=== PATIENT | female | born 1960 | race Caucasian/White ===

== ENCOUNTER 2019-02-04 16:09 | Inpatient (IN) | payer MEDICARE, MEDICAID, SELFPAY | END 2019-02-07 17:44 | DRG 689 | PROVIDERS: Admitting Provider Internal Medicine; Emergency Provider Emergency Medicine; PCP Internal Medicine; Visit Provider Internal Medicine | DX: N39.0 Urinary tract infection, site not specified (principal); G93.41 Metabolic encephalopathy; N18.4 Chronic kidney disease, stage 4 (severe); J96.12 Chronic respiratory failure with hypercapnia; Z68.41 Body mass index [BMI] 40.0-44.9, adult; B96.20 Unspecified Escherichia coli [E. coli] as the cause of diseases classified elsewhere; I12.9 Hypertensive chronic kidney disease with stage 1 through stage 4 chronic kidney disease, or unspecified chronic kidney disease; E11.22 Type 2 diabetes mellitus with diabetic chronic kidney disease; E11.51 Type 2 diabetes mellitus with diabetic peripheral angiopathy without gangrene; I73.9 Peripheral vascular disease, unspecified; M06.9 Rheumatoid arthritis, unspecified; E66.01 Morbid (severe) obesity due to excess calories; I65.09 Occlusion and stenosis of unspecified vertebral artery; G47.33 Obstructive sleep apnea (adult) (pediatric); K21.9 Gastro-esophageal reflux disease without esophagitis; F41.8 Other specified anxiety disorders; G35 Multiple sclerosis; J44.9 Chronic obstructive pulmonary disease, unspecified; I48.2 Chronic atrial fibrillation; E03.9 Hypothyroidism, unspecified; M81.0 Age-related osteoporosis without current pathological fracture; Z85.42 Personal history of malignant neoplasm of other parts of uterus; Z86.718 Personal history of other venous thrombosis and embolism; Z79.01 Long term (current) use of anticoagulants; Z87.891 Personal history of nicotine dependence; Z79.4 Long term (current) use of insulin; Z79.52 Long term (current) use of systemic steroids | CPT/HCPCS: 36415; 36600; 70450; 70551; 71045; 74150; 76700; 80048; 80053; 80061; 80069; 80307; 81001; 82805; 82962; 83036; 83735; 85025; 87077; 87081; 87086; 87088; 87186; 93005; 93306; 93880; 96361; 96365; 96366; 96375; 96376; 99285; A9270; G0378; J0744; J1815; J2405; J7030; J7512 ==

== ENCOUNTER 2019-11-01 09:34 | Outpatient (CLI) | payer MEDICARE, MEDICAID, SELFPAY ==
[2019-11-01 10:08] LABS: Basophils Absolute Auto 0.1 K/mm3 (0.0-0.1); Basophils Percent Auto 0.7 % (0.2-1.2); Eosinophils Absolute Auto 0.3 K/mm3 (0-0.3); Eosinophils Percent Auto 5.1 % (0-4.4); Hemoglobin 8.5 g/dL (12.0-15.0); Immature Granulocyte Absolute 0.03 K/mm3 (0.00-0.031); Immature Granulocyte Percent A 0.4 % (0-0.5); Immature Reticulocyte Fraction 21.2 % (3.0-15.9); Lymphocytes Absolute Auto 1.39 K/mm3 (0.9-3.2); Lymphocytes Percent Auto 20.7 % (18.3-44.2); Mean Corpuscular HGB Conc 28.3 g/dl (32-36); Mean Corpuscular Hemoglobin 25.8 pg (26-34); Mean Corpuscular Volume 90.9 fl (80-100); Mean Platelet Volume 9.5 fl (7.4-10.4); Monocytes Percent Auto 14.6 % (2.6-8.5); Neutrophils Absolute Auto 3.9 K/mm3 (1.3-6.7); Neutrophils Percent Auto 58.5 % (45.5-73.1); Platelet Count Result 235 k/mm3 (150-375); Red Cell Distribution Width 17.4 % (11.5-14.5); Reticulocyte Hemoglobin Conten 27.5 pg (28.2-35.7); Reticulocyte Percent 2.75 % (0.7-4.3); Reticulocytes Absolute 0.09 B/L (32.2-175.7); White Blood Count 6.7 K/mm3 (4.5-10.0)
[2019-11-01 10:21] LABS: Platelet Estimate Adequate (Adequate)
[2019-11-01 10:22] LABS: Anisocytosis 2+ (NORMAL); Hypochromasia 1+ (NORMAL)
[2019-11-01 12:09] LABS: Iron 34 ug/dL (37-170)
[2019-11-01 12:17] LABS: Alanine Aminotransferase 8 U/L (4-35); Albumin Level 3.5 g/dL (3.5-5.1); Alkaline Phosphatase 55 U/L (38-126); Aspartate Amino Transferase 19 U/L (14-36); Bilirubin,Total 0.2 mg/dL (0.2-1.3); Blood Urea Nitrogen 63 mg/dL (7-17); Calcium 9.4 mg/dL (8.4-10.2); Carbon Dioxide 38 mmol/L (22-30); Chloride 93 mmol/L (98-107); Estimated Glomerular Filt Rate 38; Glucose 84 mg/dL (65-105); Lactate Dehydrogenase 501 U/L (313-618); Potassium 4.6 mmol/L (3.4-5.0); Sodium 137 mmol/L (137-145)
[2019-11-01 12:18] LABS: Percent Iron Saturation 11 % (20-50)
[2019-11-01 13:11] LABS: Vitamin B12 > 1000.0 pg/mL (239-931)
== END 2019-11-01 09:35 | disposition home or self-care (01) ==
LOC: ANHLAB 09:38
PROVIDERS: PCP Internal Medicine; Visit Provider Internal Medicine Hematology & Oncology
DX: D64.9 Anemia, unspecified (principal)
CPT/HCPCS: 36415; 80053; 82607; 82728; 83540; 83550; 83615; 85025; 85046

== ENCOUNTER 2019-12-27 09:51 | Outpatient (CLI) | payer MEDICARE, MEDICAID, SELFPAY ==
[2019-12-27 10:08] LABS: Hematocrit 38.1 % (37.0-47.0); Hemoglobin 10.8 g/dL (12.0-15.0); Mean Corpuscular HGB Conc 28.3 g/dl (32-36); Mean Corpuscular Hemoglobin 27.2 pg (26-34); Mean Platelet Volume 9.6 fl (7.4-10.4); Platelet Count Result 194 k/mm3 (150-375); Red Blood Count 3.97 M/mm3 (4.2-5.4); Red Cell Distribution Width 19.7 % (11.5-14.5); White Blood Count 8.9 K/mm3 (4.5-10.0)
[2019-12-27 10:12] LABS: Blood Urea Nitrogen 66 mg/dL (8-26); Carbon Dioxide 32 mmol/L (22-30); Chloride 97 mmol/L (98-109); Estimated Glomerular Filt Rate 25; Glucose 133 mg/dL (70-105); Sodium 139 mmol/L (138-146)
[2019-12-27 12:16] LABS: Iron 81 ug/dL (37-170)
[2019-12-27 12:26] LABS: Percent Iron Saturation 42 % (20-50)
== END 2019-12-27 09:52 | disposition home or self-care (01) ==
LOC: ANHLAB 09:55
PROVIDERS: Visit Provider Internal Medicine Hematology & Oncology
DX: D64.9 Anemia, unspecified (principal)
CPT/HCPCS: 36415; 80048; 82728; 83540; 83550; 85027

== ENCOUNTER 2020-02-19 16:28 | Inpatient (IN) | payer MEDICARE, MEDICAID, SELFPAY ==
--- NOTE | ~2020-02-19 | US_ITS ---
EXAMINATION: US venous doppler [facility] EXAM DATE: 02/20/2020 09:05 INDICATION: Left leg edema. TECHNIQUE: Multiple grayscale, color flow and Doppler images of the left lower extremity deep venous system obtained and reviewed. There is no prior study for comparison. FINDINGS: LEFT SIDE Common femoral: -------- Normal. Profunda femoral: ------- Normal. Femoral: Normal. Popliteal: Normal. Posterior tibial: ---------Not visualized. Peroneal: Not visualized. Gastrocnemius: Not visualized. Soleus: Not visualized. Greater saphenous: ----- Normal. Lesser saphenous: ------ Not visualized. IMPRESSION: No thrombus through the left popliteal vein. Calf veins poorly visualized due to body hab itus, edema Reviewed, dictated and finalized at location B. IMPRESSION: No thrombus through the left popliteal vein. Calf veins poorly visu alized due to body habitus, edema
--- NOTE | ~2020-02-19 | XR_ITS ---
EXAMINATION: XR abdomen/kub 1V INDICATION: Vomiting, nasogastric tube insertion TECHNIQUE: Supine views of the abdomen were obtained on three radiographs. COMPARISON: 12/18/2017 FINDINGS: Nasogastric tube is in the stomach. The abdomen is relatively gasless. No definitely dilate d loops of bowel are seen. Visualized surgical clips likely reflect pelvic and retroperitoneal lymph node dissection. There is moderate bilateral hip osteoarthritis. Punctate left upper quadrant calcifi cations are consistent with healed granulomatous disease of the spleen. IMPRESSION: 1. Nasogastric tube in the stomach. 2. Nonspecific bowel gas pattern. Reviewed, dictated and finalized at location A.
--- NOTE | ~2020-02-19 | XR_ITS ---
EXAMINATION: XR chest 1V portable INDICATION: Fever, urinary tract infection TECHNIQUE: Portable AP chest at 1702 hours COMPARISON: 02/04/2019 FINDINGS: There are patchy bilateral airspace opacities. No pleural effusion or pneumothorax is ident ified. The cardiomediastinal silhouette is normal. Multiple healed right-sided rib fractures are note d. IMPRESSION: 1. Patchy bilateral airspace opacities, consistent with atelectasis versus pneumonia. Reviewed, dictated and finalized at location A. IMPRESSION: 1. Patchy bilateral airspace opacities, consistent with atelectasis versus pneu monia.
--- NOTE | ~2020-02-19 | XR_ITS ---
EXAMINATION: XR chest 1V portable DATE: 02/25/2020 05:57 INDICATION: Pulmonary infiltrates TECHNIQUE: frontal view of the chest was obtained. COMPARISON: Chest radiograph dated 02/19/2020 FINDINGS: Evaluation mildly limited by portable technique and patient body habitus. Patchy opacities in the rig ht mid and lower lung zones. No pneumothorax or pleural effusion. Cardiomegaly with pulmonary vascula r congestion but without summer pulmonary edema. Ossified nodules in the right mid and lower lung sybil g with calcified right hilar lymph nodes consistent with old granulomatous disease. Multiple old bila teral rib fractures. IMPRESSION: 1. . Megaly with pulmonary vascular congestion. 2. Opacities in the right mid to lower lung zones which could represent atelectasis or pneumonia. Reviewed, dictated and finalized at location A. IMPRESSION: 1. . Megaly with pulmonary vascular congestion. 2. Opacities in the right mid to lower lung zones which could represent atelect asis or pneumonia.
[2020-02-19 16:24] VITALS: RESP 22; O2SAT 99
[2020-02-19 16:25] VITALS: BP 122/42; PULSE 71; RESP 24; TEMP 36.8; O2SAT 95
--- NOTE | 2020-02-19 16:30 | ED.FEVER ---
HPI - Fever General Chief Complaint: Fever Stated Complaint: fever Source: patient and EMS Mode of arrival: EMS Limitations: clinical condition History of Present Illness HPI Narrative: Patient is a 60-year-old female with a history of multiple sclerosis, rheumatoid arthritis, recurrent urinary tract infection, hypertension, stage IV chronic kidney disease, chronic respiratory failure and type 2 diabetes who presents for evaluation of fever. Patient had a urinalysis that was consistent with a possible urinary tract infection, but the patient had not been started on any antibiotics at the facility because they are waiting for the culture to result. Patient has had fever over the past 24 hours and decreased oral intake. Patient has been slightly more confused from baseline. Related Data Home Medications Medication Instructions Recorded Confirmed MagOx 400 mg PO HS 11/18/19 11/18/19 acidophilus-pectin, citrus 2 cap PO DAILY 11/18/19 11/18/19 [Acidophilus Probiotic] ascorbic acid (vitamin C) 500 mg PO DAILY 11/18/19 11/18/19 baclofen 5 mg PO DAILY 11/18/19 11/18/19 bisacodyl 5 mg PO HS 11/18/19 11/18/19 bumetanide 2 mg PO DAILY 11/18/19 11/18/19 cyanocobalamin (vitamin B-12) 1,000 mcg PO DAILY 11/18/19 11/18/19 fluticasone furoate-vilanterol 1 inh INHALATION DAILY 11/18/19 11/18/19 [Breo Ellipta] guaifenesin 200 mg PO Q4H 11/18/19 11/18/19 hydralazine 50 mg PO TID 11/18/19 11/18/19 hydroxychloroquine 200 mg PO DAILY 11/18/19 11/18/19 ipratropium-albuterol 3 ml INHALATION QID 11/18/19 11/18/19 levothyroxine 150 mcg PO DAILY 11/18/19 11/18/19 Allergies Allergy/AdvReac Type Severity Reaction Status Date / Time vancomycin Allergy Intermediate Rash Verified 02/19/20 16:33 erythromycin base Allergy Mild Unknown Verified 02/19/20 16:33 piperacillin Allergy Mild Headache Verified 02/19/20 16:33 Sulfa (Sulfonamide Allergy Mild Unknown Verified 02/19/20 16:33 Antibiotics) tazobactam Allergy Mild Headache Verified 02/19/20 16:33 adhesive tape Allergy Unknown unknown Verified 02/19/20 16:33 amlodipine Allergy Unknown unknown Verified 02/19/20 16:33 cefpodoxime Allergy Unknown unknown Verified 02/19/20 16:33 Iodinated Contrast Media Allergy Unknown unknown Verified 02/19/20 16:33 iodine Allergy Unknown unknown Verified 02/19/20 16:33 latex Allergy Unknown unknown Verified 02/19/20 16:33 levofloxacin Allergy Unknown unknown Verified 02/19/20 16:33 metformin Allergy Unknown unknown Verified 02/19/20 16:33 Akjkbcy-Yfh-Ypu Reductase Allergy Unknown unknown Verified 02/19/20 16:33 Inhibitor Review of Systems Review of Systems: Narrative: CONSTITUTIONAL: Denies fever, chills, or sweats. EYES: Denies visual changes, redness, or discharge. ENT: Denies rhinorrhea, congestion, sore throat, or otalgia. CARDIOVASCULAR: Denies chest pain, palpitations, or edema. RESPIRATORY: Denies cough or dyspnea. GASTROINTESTINAL: Denies abdominal pain, nausea, vomiting, or diarrhea. GENITOURINARY: Denies dysuria or hematuria. SKIN: Denies rash or itching. MUSCULOSKELETAL: Denies back pain, joint pain, or myalgia. NEUROLOGIC: Denies headache, numbness, or weakness. PSYCHIATRIC: Denies anxiety or depression. [facility] Past Medical History Medical History (Updated 02/19/20 @ 19:08 by Nicky Reyna MD) Anemia Chronic anticoagulation Chronic respiratory failure DVT (deep venous thrombosis) Hypertension Kidney disease, chronic, stage IV (GFR 15-29 ml/min) Multiple sclerosis Recurrent urinary tract infection Rheumatoid arthritis Type 2 diabetes mellitus Social History Social History Smoking status: Never smoker Gender identity (if verbalized by the patient): Female Spiritual care concerns: No Exam Narrative: Exam Narrative: GENERAL: Awake, alert, chronically ill-appearing, morbidly obese HEAD: Normocephalic, atraumatic. EYES: PERRLA and EOMI. ENT: Nares clear, no rhinorrhea or epi
--- NOTE | 2020-02-19 16:34 | ECG_ITS ---
Measurements Intervals [place] Rate: 68 P: 14 DC: 169 QRS: 1 QRSD: 122 T: 26 QT: 396 QTc: 423 Interpretive Statements SINUS RHYTHM INTRAVENTRICULAR CONDUCTION DELAY POOR R WAVE PROGRESSION, ANTERIOR LEADS BORDERLINE T WAVE ABNORMALITY- HIGH LATERAL LEADS BASELINE WANDER- I, II, AVR, AVL, AVF, V1-V3, V6 ABNORMAL ECG Electronically Signed On 02-19-2020 17:16:43 CDT by Willian Eid D.O.
[2020-02-19 17:06] LABS: Hematocrit 28.5 % (37.0-47.0); Hemoglobin 8.6 g/dL (12.0-15.0); Mean Corpuscular HGB Conc 30.2 g/dl (32-36); Mean Corpuscular Hemoglobin 30.3 pg (26-34); Mean Corpuscular Volume 100.4 fl (80-100); Platelet Count Result 136 k/mm3 (150-375); Red Blood Count 2.84 M/mm3 (4.2-5.4); Red Cell Distribution Width 15.9 % (11.5-14.5); White Blood Count 14.3 K/mm3 (4.5-10.0)
[2020-02-19 17:16] LABS: INR 1.7; Prothrombin Time 19.7 Seconds (11.1-14.7)
[2020-02-19 17:19] LABS: Lactic Acid Reflex 0.9 mmol/L (0.7-2.1)
[2020-02-19 17:20] LABS: Band Neutrophils Percent 19 % (0-6); Lymphocytes Absolute Manual 0.14 K/mm3 (1.1-4.5); Monocytes Absolute Manual 0.14 K/mm3 (0.1-0.90); Monocytes Percent Manual 1 % (3-9); Neutrophils Absolute Manual 14.01 K/mm3 (1.7-7.2); Neutrophils Percent Manual 79 % (46-73); Total Cells Counted 100
[2020-02-19 17:22] LABS: Anisocytosis 2+ (NORMAL); Hypochromasia 1+ (NORMAL)
[2020-02-19 17:24] LABS: Add Urine Microscopic? YES; Appearance Urine Turbid (Clear); Bacteria Urine 2+ /hpf; Bilirubin Urine Negative (Negative); Blood Urine Negative (Negative); Color Urine Red (Yellow); Glucose Urine UA Negative (Negative); Ketones Urine Negative (Negative); Leukocyte Esterase Ur 3+ LEU/UL (Negative); Mucus Urine Few /lpf; Nitrate Urine Negative (Negative); Protein Urine 2+ mg/dL (Negative); Squamous Epithelial Cell Urine Occasional /hpf (Few); WBC Urine >75 /hpf
[2020-02-19 17:30] LABS: Alanine Aminotransferase 11 U/L (4-35); Alkaline Phosphatase 141 U/L (38-126); Aspartate Amino Transferase 24 U/L (14-36); Bilirubin,Total 0.6 mg/dL (0.2-1.3); Blood Urea Nitrogen 95 mg/dL (7-17); CRP > 9.0 mg/dL (<1.0); Calcium 8.2 mg/dL (8.4-10.2); Carbon Dioxide 31 mmol/L (22-30); Chloride 90 mmol/L (98-107); Estimated CRCL calculation 23 ml/min; Estimated Glomerular Filt Rate 18; Glucose 113 mg/dL (65-105); Potassium 4.5 mmol/L (3.4-5.0); Sodium 128 mmol/L (137-145)
[2020-02-19 17:37] LABS: Alveolar/Arterial O2 Gradient 60.3 mmHg; Carboxyhemoglobin 2.5 % THb (0-2.0); Device NASAL CANNULA; Fractional Inspired Oxygen 32 %; HCO3 ABG 30.1 mEq/l (22.0-26.0); Methemoglobin ABG 0.3 %THb (0-1.5); Modified Allen's Test Pass; Oxygen Content ABG 12.7 %vol (16.0-22.0); Oxygen Saturation ABG 98.2 % (95.0-100.0); Oxyhemoglobin 94.7 % THb (90.0-100.0); PCO2 ABG 47.2 mmHg (35.0-45.0); PO2 ABG 112.6 mmHg (80.0-100.0); PO2 FiO2 Ratio Arterial Blood 3.52 %; Reduced Hemoglobin 2.5 %THb (0-5.0); Site Drawn RIGHT RADIAL; Total Hemoglobin 9.4 g/dL (12.0-18.0); pH ABG 7.422 (7.350-7.450)
[2020-02-19] MEDS: SODIUM CHLORIDE 0.9% IV 1,000 ML 999 ML IV CONT (18:10)
[2020-02-19 18:33] LABS: Lactate Dehydrogenase 465 U/L (313-618)
[2020-02-19 18:51] LABS: Troponin I 0.905 ng/mL (0.000-0.034)
[2020-02-19 19:24] LABS: CRP > 45.0 mg/dL (<1.0)
[2020-02-19 20:23] VITALS: BP 147/57; PULSE 87; RESP 32; TEMP 38.4; O2SAT 100
--- NOTE | 2020-02-19 20:52 | PM.IMHP ---
H&P: HPI History of Present Illness Chief complaint: Fever, abnormal UA at longterm Narrative: Date and time of patient contact: 02/19/2020 at 11:00 p.m. Romina Perez is a 60 year old female with a past medical history of chronic kidney disease stage 4, obstructive sleep apnea, diabetes mellitus, obstructive sleep apnea, chronic venous stasis dermatitis the left lower extremity, and rheumatoid arthritis who presented to the ER from longterm for fever of 103?. Patient does have a history of recurrent UTIs in the past and had a urine culture sent from the longterm a couple of days ago. She had not been started on antibiotics yet because the longterm was awaiting culture results. The culture results returned today positive for greater than 100,000 E coli sensitive to ertapenem, cefepime, gentamicin, imipenem, ceftazidime, and tobramycin. According to the ER notes patient has been more confused than baseline and has had decreased oral intake for the last 24 hours. The patient denies any increased shortness of breath from baseline. She has not been having any cough or congestion. She is alert and oriented times 2-3. She is lethargic and is falling asleep frequently. She denies any abdominal pain. She has been having urinary incontinence. I tried to ask the patient about dysuria but she never answered my question. She reports that she has been having some nausea and vomiting. Source of information: I have cared for the patient before and some of the information below i.e. allergy information for is from my prior conversations with her. Patient has multiple drug allergies listed. The patient has an allergy a Levaquin listed with unknown reaction. The patient has tolerated Cipro in the past. Her allergy to Zosyn is headaches. Her allergy to sulfa is unknown but she is not a candidate for sulfa treatment due to her renal failure. Her allergy to vancomycin is rash which I suspect is red man syndrome. The patient was unable to tell me what her allergy to cefpodoxime and erythromycin base was. Review of Systems Review of Systems: Narrative: 12 systems were reviewed with pertinent positives and negatives per HPI. Except as documented in the HPI, all other systems were reviewed and are negative. However somewhat limited due to the patient's somnolence. [facility] Past Medical History Medical History (Updated 02/20/20 @ 00:25 by Ashwini Grey DO) Anemia Chronic anticoagulation Due to left lower extremity DVT Chronic respiratory failure with hypoxia Diabetes mellitus with insulin therapy Diastolic CHF Last echocardiogram January 2019 demonstrating mild left ventricular hypertrophy, grade 1 diastolic dysfunction, EF of 65% DVT (deep venous thrombosis) Left lower extremity DVT 2016 following complicated bowel surgery with V/Q scan suggestive of intermediate probability of pulmonary embolism March 2018 on chronic anticoagulation with Eliquis after failure of Xarelto treatment in 2017 GERD (gastroesophageal reflux disease) Gout Hypertension Multiple sclerosis Obstructive sleep apnea on CPAP Osteoporosis Recurrent urinary tract infection Rheumatoid arthritis Stage 3 chronic kidney disease With baseline creatinine between 1.5 in 2 Uterine cancer Status post hysterectomy and radiation therapy Surgical History Surgical History (Updated 02/19/20 @ 21:08 by Ashwini Grey DO) History of bowel resection ?Twisted bowel? with surgical correction April [address] [facility] postoperative course complicated by wound infection and DVT History of hysterectomy for cancer Family History Family History (Updated 02/19/20 @ 20:39 by Roxana Paredes RN) Father Diabetes mellitus Cancer Hypertension Mother Diabetes mellitus Hypertension Social History Social History (Updated 02/20/20 @ 00:25 by Ashwini Grey DO) Social History: Primary care physician: Dr. Pam marte
[2020-02-19 21:15] VITALS: O2SAT 87
[2020-02-19 21:22] LABS: Alveolar/Arterial O2 Gradient 92.2 mmHg; Base Excess ABG -0.2 mEq/l (+/-2.0); Carboxyhemoglobin 1.6 % THb (0-2.0); Fractional Inspired Oxygen 28 %; HCO3 ABG 25.6 mEq/l (22.0-26.0); Methemoglobin ABG 0.1 %THb (0-1.5); Oxyhemoglobin 84.1 % THb (90.0-100.0); PCO2 ABG 47.5 mmHg (35.0-45.0); PO2 ABG 51.4 mmHg (80.0-100.0); PO2 FiO2 Ratio Arterial Blood 1.84 %; Reduced Hemoglobin 14.2 %THb (0-5.0); Total Hemoglobin 10.1 g/dL (12.0-18.0)
[2020-02-19 21:25] LABS: Device NASAL CANNULA; Modified Allen's Test Pass; Oxygen Saturation ABG 84.4 % (95.0-100.0); Site Drawn LEFT RADIAL
[2020-02-19 22:00] VITALS: PULSE 86
[2020-02-19 22:38] LABS: Troponin I 0.843 ng/mL (0.000-0.034)
[2020-02-19 22:54] VITALS: BMI 50.8
--- NOTE | 2020-02-19 23:12 | ADMIMU ---
This patient, Romina Perez, was admitted to IMU status, and placed in Intensive Care Unit-1 on 02/19/2020 at 2015. Patient/family oriented to hospital policies and general routines including ID bracelet, bed and alarms, visiting hours, pain management, procedures, bathroom and other care routines, personal items, smoking policy, room service/diet, and visiting hours. Valuables list has been completed. Information on how to activate the Rapid Response Team has been discussed. Patient/Family are encouraged to report perceived risks to care and to ask questions if they do not understand what they are told or what they should do.
[2020-02-20] VITALS (19 sets, daily range): BP systolic 107–152; BP diastolic 54–94; PULSE 73–124; RESP 16–27; TEMP 36.2–38.3; O2SAT 91–100
[2020-02-20] MEDS: SODIUM CHLORIDE 0.9% IV 1,000 ML 80 ML IV CONT ×2 (01:43→19:45)
[2020-02-20] MEDS: ACETAMINOPHEN 325 MG TABLET 650 MG PO (01:50)
[2020-02-20 03:02] LABS: Troponin I 0.802 ng/mL (0.000-0.034)
[2020-02-20] MEDS: METOCLOPRAMIDE HCL 10 MG TABLET PO ×2 (05:34→10:56)
[2020-02-20] MEDS: LEVOTHYROXINE SODIUM 75 MCG TABLET 150 MCG PO (05:34)
[2020-02-20 06:03] LABS: Hematocrit 26.7 % (37.0-47.0); Hemoglobin 8.2 g/dL (12.0-15.0); Mean Corpuscular HGB Conc 30.7 g/dl (32-36); Mean Corpuscular Hemoglobin 30.3 pg (26-34); Mean Corpuscular Volume 98.5 fl (80-100); Mean Platelet Volume 10.9 fl (7.4-10.4); Platelet Count Result 118 k/mm3 (150-375); Red Blood Count 2.71 M/mm3 (4.2-5.4); Red Cell Distribution Width 15.9 % (11.5-14.5); White Blood Count 18.5 K/mm3 (4.5-10.0)
[2020-02-20 06:13] LABS: Blood Urea Nitrogen 90 mg/dL (7-17); Calcium 8.2 mg/dL (8.4-10.2); Carbon Dioxide 31 mmol/L (22-30); Chloride 91 mmol/L (98-107); Estimated CRCL calculation 24 ml/min; Estimated Glomerular Filt Rate 15; Glucose 116 mg/dL (65-105); Potassium 4.2 mmol/L (3.4-5.0); Sodium 130 mmol/L (137-145)
[2020-02-20 06:54] LABS: Band Neutrophils Percent 6 % (0-6); Eosinophils Absolute Manual 0.18 K/mm3 (0.02-0.5); Eosinophils Percent Manual 1 % (0-4); Hypochromasia 1+ (NORMAL); Monocytes Absolute Manual 0.74 K/mm3 (0.1-0.90); Monocytes Percent Manual 4 % (3-9); Neutrophils Absolute Manual 17.57 K/mm3 (1.7-7.2); Neutrophils Percent Manual 89 % (46-73); Platelet Estimate Decreased (Adequate); Total Cells Counted 100
[2020-02-20] MEDS: SULFASALAZINE 500 MG TABLET 1000 MG PO (08:15)
[2020-02-20] MEDS: GABAPENTIN 300 MG CAPSULE PO (08:17)
[2020-02-20] MEDS: APIXABAN 5 MG TABLET PO (08:18)
[2020-02-20] MEDS: hydrALAZINE HCL 50 MG TABLET PO (08:22)
--- NOTE | 2020-02-20 08:55 | PM.IMPN ---
Progress Note: A&P Assessment and Plan (1) Sepsis: Qualifiers: Sepsis acute organ dysfunction status: unspecified Sepsis type: sepsis due to unspecified organism Qualified Code(s): A41.9 - Sepsis, unspecified organism Code(s): A41.9 - Sepsis, unspecified organism Status: Acute Assessment and Plan: Patient with septicemia related to E coli UTI. She may a cellulitis in the left lower extremity versus chronic venous stasis. Pneumonia felt to be less likely given her lack of symptoms. Blood culture artery has returned positive for Gram-negative bacilli suspected to be MDR E coli. Continue IV fluids. Continue Primaxin and azithromycin. Will stop Rocephin. Patient states that she is 'allergic'to Rocephin and that it causes migraines. Called by RN about patient having n/v. Interaction with Zofran and Phenergan with her other medications. Reglan continued but changed to IV. NG tube placed ultimately and placed on suction. KUB for placement showed nml BG pattern. Continue to monitor (2) Acute UTI: Code(s): N39.0 - Urinary tract infection, site not specified Status: Acute Assessment and Plan: UA noted. Urine culture from the long term showing MDR E coli UTI. Patient started on Primaxin. Continue the same. Follow up on blood cultures here. (3) Acute on chronic renal failure: Qualifiers: Acute renal failure type: unspecified Chronic kidney disease stage: stage 3 (moderate) Qualified Code(s): N17.9 - Acute kidney failure, unspecified; N18.3 - Chronic kidney disease, stage 3 (moderate) Code(s): N17.9 - Acute kidney failure, unspecified; N18.9 - Chronic kidney disease, unspecified Status: Acute Assessment and Plan: Baseline creatinine anywhere from 1.4-2.0 when checked earlier this year. Creatinine 2.7 on admission here and has climbed to 3.1. Most likely ATN related to the septicemia. Paz catheter placed accurate I/O's. Bumex placed on hold. Continue IV fluids. Continue to monitor. (4) Cellulitis: Qualifiers: Laterality: left Site of cellulitis: extremity Site of cellulitis of extremity: lower extremity Qualified Code(s): L03.116 - Cellulitis of left lower limb Code(s): L03.90 - Cellulitis, unspecified Status: Acute Assessment and Plan: Possible left lower extremity cellulitis but consider related to her chronic venous stasis dermatitis. She has mild erythema to the leg will monitor clinically. Doppler has been ordered and results pending. DVT less likely given the fact she is on Eliquis chronically. Continue current IV antibiotics. (5) Bilateral pulmonary infiltrates on CXR: Code(s): R91.8 - Other nonspecific abnormal finding of lung field Status: Acute Assessment and Plan: Chest x-ray on admission reviewed personally. Patient with patchy bilateral airspace disease. She was recently tested for COVID-19 3 days ago. Repeat testing has been performed. Continue isolation until COVID test results known. She is being covered for pneumonia with the current antibiotics. (6) Obstructive sleep apnea: Code(s): G47.33 - Obstructive sleep apnea (adult) (pediatric) Status: Acute Assessment and Plan: The patient does use CPAP at the long term. CPAP has not been ordered at this time as the patient is currently being tested for COVID-19 and is not in a negative pressure room. (7) Rheumatoid arthritis: Code(s): M06.9 - Rheumatoid arthritis, unspecified Status: Acute Assessment and Plan: Patient Immunocompromised by her treatment for RA. She is on prednisone, hydroxychloroquine and sulfasalazine chronically. Will continue these medications. Start PT and OT when able. BP stable so will hold on stress dose steroids at this time. (8) Diabetes mellitus: Code(s): E11.9 - Type 2 diabetes mellitus without complications Status:
[2020-02-20 12:34] LABS: Glucose Point of Care 128 (65-105)
--- NOTE | 2020-02-20 13:07 | ECG_ITS ---
Measurements Intervals [place] Rate: 82 P: 16 UT: 167 QRS: -2 QRSD: 112 T: 61 QT: 362 QTc: 423 Interpretive Statements SINUS RHYTHM INTRAVENTRICULAR CONDUCTION DELAY POOR R WAVE PROGRESSION, ANTERIOR LEADS BASELINE ARTIFACT- I, III BORDERLINE ECG Electronically Signed On 02-20-2020 15:11:04 CDT by Willian Eid D.O.
[2020-02-20] MEDS: METOCLOPRAMIDE HCL INJ 10 MG/2 ML VIAL 5 MG IV PUSH (16:57)
[2020-02-20 18:38] LABS: Glucose Point of Care 108 (65-105)
[2020-02-20 18:54] LABS: SARS-CoV-2 RNA PCR Negative
[2020-02-20] MEDS: EZETIMIBE 10 MG TABLET PO (21:50)
[2020-02-20 21:54] LABS: Glucose Point of Care 110 (65-105)
[2020-02-20] MEDS: dilTIAZem HCl INJ 25 MG/5 ML VIAL 10 MG IV PUSH (23:19)
[2020-02-20] MEDS: METOCLOPRAMIDE HCL INJ 10 MG/2 ML VIAL IV PUSH (23:29)
[2020-02-21] VITALS (16 sets, daily range): BP systolic 135–188; BP diastolic 79–110; PULSE 93–108; RESP 17–24; TEMP 36–36.6; O2SAT 97–99
[2020-02-21] MEDS: LEVOTHYROXINE SODIUM 75 MCG TABLET 150 MCG PO (05:50)
[2020-02-21] MEDS: METOCLOPRAMIDE HCL INJ 10 MG/2 ML VIAL IV PUSH ×4 (05:52→23:13)
[2020-02-21 08:44] LABS: Glucose Point of Care 106 (65-105)
[2020-02-21] MEDS: SODIUM CHLORIDE 0.9% IV 1,000 ML 80 ML IV CONT ×2 (08:54→22:11)
[2020-02-21] MEDS: ACIDOPHILUS/BULGARICUS CHEWABLE TABLET 2 TABLET PO (08:56)
[2020-02-21] MEDS: ASCORBIC ACID 500 MG TABLET PO (08:56)
[2020-02-21] MEDS: CYANOCOBALAMIN 500 MCG TABLET PO (08:56)
[2020-02-21] MEDS: DULoxetine HCL 30 MG CAPSULE.DR PO ×2 (08:56→17:20)
[2020-02-21] MEDS: APIXABAN 5 MG TABLET PO ×2 (08:56→17:20)
[2020-02-21] MEDS: LORATADINE 10 MG TABLET PO (08:57)
[2020-02-21] MEDS: GABAPENTIN 300 MG CAPSULE PO ×2 (08:57→17:20)
[2020-02-21] MEDS: hydrALAZINE HCL 50 MG TABLET PO ×3 (08:57→17:22)
[2020-02-21] MEDS: POLYSACCHARIDE IRON COMPLEX 150 MG CAPSULE PO (08:57)
[2020-02-21] MEDS: FLUTICASONE PROPIONATE 0.05% NA SPR 16 GM BTL (*BKC) 1 SPRAY NASAL (08:57)
[2020-02-21] MEDS: MAGNESIUM OXIDE 400 MG TABLET PO (08:58)
[2020-02-21] MEDS: predniSONE 5 MG TABLET PO (08:58)
[2020-02-21] MEDS: calcitrioL 0.25 MCG CAPSULE PO (08:58)
[2020-02-21] MEDS: PANTOPRAZOLE 40 MG TABLET PO (08:58)
[2020-02-21] MEDS: SULFASALAZINE 500 MG TABLET 1000 MG PO ×2 (08:58→17:22)
[2020-02-21 09:12] LABS: Basophils Percent Auto 0.3 % (0.2-1.2); Eosinophils Absolute Auto 0.4 K/mm3 (0-0.3); Eosinophils Percent Auto 2.8 % (0-4.4); Hematocrit 30.7 % (37.0-47.0); Hemoglobin 9.5 g/dL (12.0-15.0); Immature Granulocyte Absolute 0.16 K/mm3 (0.00-0.031); Immature Granulocyte Percent A 1.2 % (0-0.5); Lymphocytes Absolute Auto 0.37 K/mm3 (0.9-3.2); Lymphocytes Percent Auto 2.7 % (18.3-44.2); Mean Corpuscular HGB Conc 30.9 g/dl (32-36); Mean Corpuscular Hemoglobin 30.2 pg (26-34); Mean Corpuscular Volume 97.5 fl (80-100); Mean Platelet Volume 10.3 fl (7.4-10.4); Monocytes Absolute Auto 1.5 K/mm3 (0.1-0.6); Monocytes Percent Auto 11.2 % (2.6-8.5); Neutrophils Absolute Auto 11.3 K/mm3 (1.3-6.7); Neutrophils Percent Auto 81.8 % (45.5-73.1); Platelet Count Result 73 k/mm3 (150-375); Red Blood Count 3.15 M/mm3 (4.2-5.4); Red Cell Distribution Width 17.7 % (11.5-14.5); White Blood Count 13.8 K/mm3 (4.5-10.0)
[2020-02-21 09:19] LABS: Hemoglobin A1C 5.4 % (<5.7)
[2020-02-21 09:30] LABS: Alanine Aminotransferase 10 U/L (4-35); Albumin Level 2.9 g/dL (3.5-5.1); Alkaline Phosphatase 160 U/L (38-126); Aspartate Amino Transferase 31 U/L (14-36); Bilirubin,Total 0.7 mg/dL (0.2-1.3); Blood Urea Nitrogen 90 mg/dL (7-17); Calcium 8.5 mg/dL (8.4-10.2); Carbon Dioxide 27 mmol/L (22-30); Chloride 92 mmol/L (98-107); Estimated CRCL calculation 42 ml/min; Estimated Glomerular Filt Rate 29; Glucose 101 mg/dL (65-105); Magnesium 1.7 mg/dL (1.6-2.3); Potassium 4.1 mmol/L (3.4-5.0); Sodium 130 mmol/L (137-145)
--- NOTE | 2020-02-21 10:43 | PC.NURSE ---
02/21/20 0900-PATIENT TRANSFERRED TO 232 PER BED. REPORT GIVEN TO LAUREN CALVIN. ALL QUESTIONS ANSWERED. BELONGINGS SENT.
[2020-02-21] MEDS: BACLOFEN 5 MG TABLET PO (11:00)
[2020-02-21 12:53] LABS: Glucose Point of Care 122 (65-105)
--- NOTE | 2020-02-21 17:01 | PM.IMPN ---
Progress Note: A&P Assessment and Plan (1) Sepsis: Qualifiers: Sepsis acute organ dysfunction status: unspecified Sepsis type: sepsis due to unspecified organism Qualified Code(s): A41.9 - Sepsis, unspecified organism Code(s): A41.9 - Sepsis, unspecified organism Status: Acute Assessment and Plan: Patient with septicemia related to E coli UTI. She may a cellulitis in the left lower extremity versus chronic venous stasis. . Blood culture artery has returned positive for Gram-negative bacilli , E coli. Continue IV fluids. Continue Primaxin and azithromycin. (2) Acute UTI: Code(s): N39.0 - Urinary tract infection, site not specified Status: Acute Assessment and Plan: UA noted. Urine culture from the retirement showing MDR E coli UTI. Patient started on Primaxin. Continue the same. Follow up on blood cultures here for sensitivities (3) Acute on chronic renal failure: Qualifiers: Acute renal failure type: unspecified Chronic kidney disease stage: stage 3 (moderate) Qualified Code(s): N17.9 - Acute kidney failure, unspecified; N18.3 - Chronic kidney disease, stage 3 (moderate) Code(s): N17.9 - Acute kidney failure, unspecified; N18.9 - Chronic kidney disease, unspecified Status: Acute Assessment and Plan: Baseline creatinine anywhere from 1.4-2.0 when checked earlier this year. Creatinine 2.7 on admission here and has climbed to 3.1 and back to 1.8 today.. Most likely ATN related to the septicemia. Paz catheter placed accurate I/O's. Bumex placed on hold. Continue IV fluids. Continue to monitor. (4) Cellulitis: Qualifiers: Laterality: left Site of cellulitis: extremity Site of cellulitis of extremity: lower extremity Qualified Code(s): L03.116 - Cellulitis of left lower limb Code(s): L03.90 - Cellulitis, unspecified Status: Acute Assessment and Plan: Possible left lower extremity cellulitis but consider related to her chronic venous stasis dermatitis. She has mild erythema to the leg will monitor clinically. Doppler has been ordered and is negative but hx of dvt and on Eliquis chronically. Continue current IV antibiotics. (5) Bilateral pulmonary infiltrates on CXR: Code(s): R91.8 - Other nonspecific abnormal finding of lung field Status: Acute Assessment and Plan: Chest x-ray on admission reviewed personally. Patient with patchy bilateral airspace disease. She was recently tested for COVID-19 3 days ago. Repeat testing has been performed. Continue isolation until COVID test results known. She is being covered for pneumonia with the current antibiotics. does have hx of diastolic chf (6) Obstructive sleep apnea: Code(s): G47.33 - Obstructive sleep apnea (adult) (pediatric) Status: Acute Assessment and Plan: The patient does use CPAP at the retirement. CPAP has not been ordered at this time as the patient is currently being tested for COVID-19 and is not in a negative pressure room. (7) Rheumatoid arthritis: Code(s): M06.9 - Rheumatoid arthritis, unspecified Status: Acute Assessment and Plan: Patient Immunocompromised by her treatment for RA. She is on prednisone, hydroxychloroquine and sulfasalazine chronically. Will continue these medications. Start PT and OT when able, patient states she rarely walks. BP stable so will hold on stress dose steroids at this time. (8) Diabetes mellitus: Code(s): E11.9 - Type 2 diabetes mellitus without complications Status: Acute Assessment and Plan: A1c 5.5 last year. Glucose well controlled here. Start sliding scale protocol. (9) Anemia: Code(s): D64.9 - Anemia, unspecified Status: Acute Assessment and Plan: Patient with chronic anemia with hemoglobin earlier this year running 8-10 range. Hemoglobin 8.6 on admission here. Workup i
[2020-02-21 17:06] LABS: Glucose Point of Care 108 (65-105)
[2020-02-21 20:46] LABS: Glucose Point of Care 93 (65-105)
[2020-02-22] VITALS (19 sets, daily range): BP systolic 143–160; BP diastolic 75–104; PULSE 74–130; RESP 12–22; TEMP 35.8–36.7; O2SAT 96–100
--- NOTE | 2020-02-22 | ECHO_ITS ---
Patient Info Name: Romina Perez Age: 60 years : 1960 Gender: Female Ht: 64 in Wt: 312 lbs BSA: 2.62 m2 HR: 92 bpm BP: 143 / 81 mmHg Technical Quality: Fair Exam Date: 02/22/2020 11:27 AM Exam Location: [facility] Patient Status: Inpatient Admit Date: 02/19/2020 Staff Ordering Physician: Maninder Palmer MD [place] Mark[place]: Lizy Ponce RDCS Attending Provider: Sarkis Davila MD Referring Physician: Spencer BERUMEN; Exam Type: CA echo doppler color flow Study Info Indications - afib Complete two-dimensional, color flow and Doppler transthoracic echocardiogram is performed. Summary 1. Normal LV size, mild LVH, normal LV systolic function, ejection fraction 55-60%, grade 1 diastolic dysfunction with elevated left heart pressures. Moderate left atrial enlargement. Dense mitral annular calcification, trivial MR. Mild aortic valve sclerosis without significant stenosis by Doppler. Trivial TR, mild pulmonary hypertension, RVSP 39 mmHg. Left Ventricle Left ventricular chamber dimension is normal. Left ventricular systolic function is normal, estimated at 55-60%. There is mildly increased left ventricular wall thickness. Left ventricular septal wall motion is normal. The left ventricular diastolic function is abnormal. Right Ventricle Right ventricular chamber dimension is normal. Right ventricular systolic function is normal. Left Atria Left atrial chamber dimension is moderately enlarged. Right Atria Right atrial chamber dimension is normal. Aortic Valve There is mild aortic valve sclerosis. There is no aortic valve stenosis. There is no aortic valve regurgitation. Pulmonic Valve The pulmonic valve is normal. There is trace pulmonic regurgitation. Mitral Valve The mitral valve has thickened leaflets. There is trace mitral valve regurgitation. The mitral valve annulus is severely calcified. Tricuspid Valve The tricuspid valve leaflets are normal. There is trace tricuspid valve regurgitation. Mild pulmonary hypertension, estimated pulmonary arterial systolic pressure is 39 mmHg. Pericardium/Pleural The pericardium appears epicardial fat pad. There is no pericardial effusion. Aorta The aortic root size at the sinus of Valsalva is normal. The prox ascending aorta size is normal. Left Ventricular Outflow Tract Name Value Normal LVOT 2D LVOT Diameter 2.0 cm LVOT Doppler LVOT Peak Gradient 6 mmHg LVOT Mean Gradient 4 mmHg LVOT VTI 19 cm LVOT VTI/AV VTI Ratio 0.9 LVOT Stroke Volume 60 ml LVOT CO 16.9 l/min LVOT CI 6.4 l/min/m2 Pulmonic Valve Name Value Normal PV Doppler PV Peak Gradient
[2020-02-22 05:38] LABS: Basophils Absolute Auto 0.1 K/mm3 (0.0-0.1); Basophils Percent Auto 0.5 % (0.2-1.2); Eosinophils Absolute Auto 0.3 K/mm3 (0-0.3); Eosinophils Percent Auto 2.2 % (0-4.4); Hemoglobin 9.5 g/dL (12.0-15.0); Immature Granulocyte Percent A 2.3 % (0-0.5); Lymphocytes Absolute Auto 0.29 K/mm3 (0.9-3.2); Lymphocytes Percent Auto 2.2 % (18.3-44.2); Mean Corpuscular HGB Conc 31.7 g/dl (32-36); Mean Corpuscular Hemoglobin 29.7 pg (26-34); Mean Corpuscular Volume 93.8 fl (80-100); Mean Platelet Volume 11.1 fl (7.4-10.4); Monocytes Absolute Auto 1.3 K/mm3 (0.1-0.6); Monocytes Percent Auto 9.8 % (2.6-8.5); Neutrophils Absolute Auto 11.1 K/mm3 (1.3-6.7); Platelet Count Result 91 k/mm3 (150-375); Red Cell Distribution Width 15.3 % (11.5-14.5); White Blood Count 13.3 K/mm3 (4.5-10.0)
[2020-02-22] MEDS: LEVOTHYROXINE SODIUM 75 MCG TABLET 150 MCG PO (05:44)
[2020-02-22 05:46] LABS: Blood Urea Nitrogen 73 mg/dL (7-17); Calcium 8.6 mg/dL (8.4-10.2); Carbon Dioxide 29 mmol/L (22-30); Chloride 94 mmol/L (98-107); Estimated CRCL calculation 53 ml/min; Estimated Glomerular Filt Rate 38; Glucose 94 mg/dL (65-105); Sodium 133 mmol/L (137-145)
[2020-02-22] MEDS: METOCLOPRAMIDE HCL INJ 10 MG/2 ML VIAL IV PUSH ×4 (05:54→23:30)
[2020-02-22 07:58] LABS: Glucose Point of Care 111 (65-105)
[2020-02-22] MEDS: calcitrioL 0.25 MCG CAPSULE PO (09:00)
[2020-02-22] MEDS: POTASSIUM CHLORIDE 20 MEQ TABLET 40 MEQ PO ×2 (09:00→17:55)
[2020-02-22] MEDS: DULoxetine HCL 30 MG CAPSULE.DR PO ×2 (09:02→17:44)
[2020-02-22] MEDS: dilTIAZem HCL CD 180 MG CAP.ER.24H 360 MG PO (09:02)
[2020-02-22] MEDS: FLUTICASONE PROPIONATE 0.05% NA SPR 16 GM BTL (*BKC) 1 SPRAY NASAL (09:03)
[2020-02-22] MEDS: GABAPENTIN 300 MG CAPSULE PO ×2 (09:03→17:42)
[2020-02-22] MEDS: POLYSACCHARIDE IRON COMPLEX 150 MG CAPSULE PO (09:03)
[2020-02-22] MEDS: predniSONE 5 MG TABLET PO (09:04)
[2020-02-22] MEDS: PANTOPRAZOLE 40 MG TABLET PO (09:04)
[2020-02-22] MEDS: LORATADINE 10 MG TABLET PO (09:04)
[2020-02-22] MEDS: SULFASALAZINE 500 MG TABLET 1000 MG PO ×2 (09:04→17:43)
[2020-02-22] MEDS: MAGNESIUM OXIDE 400 MG TABLET PO (09:04)
[2020-02-22] MEDS: hydrALAZINE HCL 50 MG TABLET PO ×3 (09:04→17:42)
[2020-02-22] MEDS: ASCORBIC ACID 500 MG TABLET PO (09:05)
[2020-02-22] MEDS: ACIDOPHILUS/BULGARICUS CHEWABLE TABLET 2 TABLET PO (09:05)
[2020-02-22] MEDS: APIXABAN 5 MG TABLET PO ×2 (09:05→17:43)
[2020-02-22] MEDS: CYANOCOBALAMIN 500 MCG TABLET PO (09:05)
--- NOTE | 2020-02-22 10:05 | PCRCNOTE ---
PT HEART RATE ELEVATED AND UNAVAILABLE
[2020-02-22] MEDS: METOPROLOL TARTRATE INJ 5 MG/5 ML VIAL IV PUSH (10:10)
[2020-02-22] MEDS: SODIUM CHLORIDE 0.9% IV 1,000 ML 80 ML IV CONT (11:57)
[2020-02-22] MEDS: METOPROLOL TARTRATE 25 MG TABLET PO ×2 (11:58→22:27)
[2020-02-22] MEDS: LOPERAMIDE HCL 2 MG CAPSULE PO (11:58)
[2020-02-22 12:15] LABS: Glucose Point of Care 114 (65-105)
[2020-02-22 13:36] LABS: Procalcitonin 28.98 ng/mL (<0.10)
[2020-02-22 16:47] LABS: Glucose Point of Care 122 (65-105)
--- NOTE | 2020-02-22 16:54 | PM.IMPN ---
Progress Note: A&P Assessment and Plan (1) Sepsis: Qualifiers: Sepsis acute organ dysfunction status: unspecified Sepsis type: sepsis due to unspecified organism Qualified Code(s): A41.9 - Sepsis, unspecified organism Code(s): A41.9 - Sepsis, unspecified organism Status: Acute Assessment and Plan: Patient with septicemia related to E coli UTI. She may a cellulitis in the left lower extremity versus chronic venous stasis. . Blood culture artery has returned positive for Gram-negative bacilli suspected to be E coli.also Continue IV fluids. Continue Primaxin and azithromycin. . NG removed today and started diet. Continue to monitor (2) Acute UTI: Code(s): N39.0 - Urinary tract infection, site not specified Status: Acute Assessment and Plan: UA noted. Urine culture from the group home show E coli UTI. and here also . Patient started on Primaxin. Continue the same. blood cultures + for ecoli also (3) Acute on chronic renal failure: Qualifiers: Acute renal failure type: unspecified Chronic kidney disease stage: stage 3 (moderate) Qualified Code(s): N17.9 - Acute kidney failure, unspecified; N18.3 - Chronic kidney disease, stage 3 (moderate) Code(s): N17.9 - Acute kidney failure, unspecified; N18.9 - Chronic kidney disease, unspecified Status: Acute Assessment and Plan: Baseline creatinine anywhere from 1.4-2.0 when checked earlier this year. Creatinine 2.7 on admission here climbed to 3.1. Most likely ATN related to the septicemia. Paz catheter placed accurate I/O's. Bumex placed on hold. Continue IV fluids. and creatinine 1.4 today (4) Cellulitis: Qualifiers: Laterality: left Site of cellulitis: extremity Site of cellulitis of extremity: lower extremity Qualified Code(s): L03.116 - Cellulitis of left lower limb Code(s): L03.90 - Cellulitis, unspecified Status: Acute Assessment and Plan: Possible left lower extremity cellulitis but consider related to her chronic venous stasis dermatitis. She has mild erythema to the leg will monitor clinically. Doppler has been ordered and no DVT found. Continue current IV antibiotics. (5) Bilateral pulmonary infiltrates on CXR: Code(s): R91.8 - Other nonspecific abnormal finding of lung field Status: Acute Assessment and Plan: Chest x-ray on admission reviewed personally. Patient with patchy bilateral airspace disease. She was recently tested for COVID-19 3 days ago. Repeat testing has been performed and negative. She is being covered for pneumonia with the current antibiotics. (6) Obstructive sleep apnea: Code(s): G47.33 - Obstructive sleep apnea (adult) (pediatric) Status: Acute Assessment and Plan: The patient does use CPAP at the group home. CPAP has not been ordered at this time as the patient is currently being tested for COVID-19 and is not in a negative pressure room. (7) Rheumatoid arthritis: Code(s): M06.9 - Rheumatoid arthritis, unspecified Status: Acute Assessment and Plan: Patient Immunocompromised by her treatment for RA. She is on prednisone, hydroxychloroquine and sulfasalazine chronically. Will continue these medications. Start PT and OT when able. BP stable so will hold on stress dose steroids at this time. (8) Diabetes mellitus: Code(s): E11.9 - Type 2 diabetes mellitus without complications Status: Acute Assessment and Plan: A1c 5.5 last year. Glucose well controlled here. Start sliding scale protocol. (9) Anemia: Code(s): D64.9 - Anemia, unspecified Status: Acute Assessment and Plan: Patient with chronic anemia with hemoglobin earlier this year running 8-10 range. Hemoglobin 8.6 on admission here. Workup in December showing low TIBC but normal saturation, iron level and ferritin. B12 level normal in October. Prob
--- NOTE | 2020-02-22 18:51 | PC.NURSE ---
This patient, Romina Perez, was received from IMU on 02/22/20 at 1851. Personal belongings list checked and signed. Patient/family oriented to unit policies and routines
--- NOTE | 2020-02-22 19:17 | PC.NURSE ---
Pt transferred to room 245 via bed on 02-22-20 at 1849. Report called to Nayeli AGUILAR. Belongings list verified.
[2020-02-22] MEDS: ALBUTEROL SULFATE (*SP) AEROSOL 1 PUFF 4 PUFF INHALATION (20:15)
[2020-02-22] MEDS: EZETIMIBE 10 MG TABLET PO (22:27)
[2020-02-22 22:36] LABS: Glucose Point of Care 127 (65-105)
[2020-02-23] VITALS (8 sets, daily range): BP systolic 135–145; BP diastolic 64–95; PULSE 63–89; RESP 16–24; TEMP 35.8–36.6; O2SAT 95–100; BMI 11.0
[2020-02-23] MEDS: BACLOFEN 5 MG TABLET PO (00:28)
[2020-02-23 04:53] LABS: Hematocrit 27.6 % (37.0-47.0); Hemoglobin 8.6 g/dL (12.0-15.0); Mean Corpuscular HGB Conc 31.2 g/dl (32-36); Mean Corpuscular Hemoglobin 29.8 pg (26-34); Mean Corpuscular Volume 95.5 fl (80-100); Mean Platelet Volume 11.6 fl (7.4-10.4); Platelet Count Result 100 k/mm3 (150-375); Red Blood Count 2.89 M/mm3 (4.2-5.4); Red Cell Distribution Width 15.7 % (11.5-14.5); White Blood Count 12.1 K/mm3 (4.5-10.0)
[2020-02-23 05:18] LABS: Blood Urea Nitrogen 71 mg/dL (7-17); Calcium 8.4 mg/dL (8.4-10.2); Carbon Dioxide 27 mmol/L (22-30); Chloride 95 mmol/L (98-107); Estimated CRCL calculation 50 ml/min; Estimated Glomerular Filt Rate 35; Glucose 103 mg/dL (65-105); Potassium 3.6 mmol/L (3.4-5.0); Sodium 131 mmol/L (137-145)
[2020-02-23 05:37] LABS: Band Neutrophils Percent 3 % (0-6); Metamyelocytes Percent 2 %; Monocytes Absolute Manual 1.21 K/mm3 (0.1-0.90); Monocytes Percent Manual 10 % (3-9); Neutrophils Absolute Manual 10.04 K/mm3 (1.7-7.2); Neutrophils Percent Manual 80 % (46-73); Total Cells Counted 100
[2020-02-23] MEDS: SODIUM CHLORIDE 0.9% IV 1,000 ML 50 ML IV CONT (06:02)
[2020-02-23] MEDS: LEVOTHYROXINE SODIUM 75 MCG TABLET 150 MCG PO (06:02)
[2020-02-23] MEDS: METOCLOPRAMIDE HCL INJ 10 MG/2 ML VIAL IV PUSH ×4 (06:02→23:29)
[2020-02-23 07:58] LABS: Glucose Point of Care 133 (65-105)
[2020-02-23] MEDS: calcitrioL 0.25 MCG CAPSULE PO (08:03)
[2020-02-23] MEDS: APIXABAN 5 MG TABLET PO ×2 (08:03→16:51)
[2020-02-23] MEDS: ACIDOPHILUS/BULGARICUS CHEWABLE TABLET 2 TABLET PO (08:03)
[2020-02-23] MEDS: dilTIAZem HCL CD 180 MG CAP.ER.24H 360 MG PO (08:03)
[2020-02-23] MEDS: CYANOCOBALAMIN 500 MCG TABLET PO (08:03)
[2020-02-23] MEDS: ASCORBIC ACID 500 MG TABLET PO (08:03)
[2020-02-23] MEDS: DULoxetine HCL 30 MG CAPSULE.DR PO ×2 (08:03→16:51)
[2020-02-23] MEDS: SULFASALAZINE 500 MG TABLET 1000 MG PO ×2 (08:04→16:52)
[2020-02-23] MEDS: predniSONE 5 MG TABLET PO (08:04)
[2020-02-23] MEDS: PANTOPRAZOLE 40 MG TABLET PO (08:04)
[2020-02-23] MEDS: FLUTICASONE PROPIONATE 0.05% NA SPR 16 GM BTL (*BKC) 1 SPRAY NASAL (08:04)
[2020-02-23] MEDS: LORATADINE 10 MG TABLET PO (08:04)
[2020-02-23] MEDS: MAGNESIUM OXIDE 400 MG TABLET PO (08:04)
[2020-02-23] MEDS: POLYSACCHARIDE IRON COMPLEX 150 MG CAPSULE PO (08:04)
[2020-02-23] MEDS: GABAPENTIN 300 MG CAPSULE PO ×2 (08:04→16:52)
[2020-02-23] MEDS: hydrALAZINE HCL 50 MG TABLET PO ×3 (08:04→16:52)
[2020-02-23] MEDS: METOPROLOL TARTRATE 25 MG TABLET PO ×2 (08:05→21:59)
[2020-02-23] MEDS: POTASSIUM CHLORIDE 20 MEQ TABLET 40 MEQ PO (08:37)
[2020-02-23 11:36] LABS: Glucose Point of Care 148 (65-105)
[2020-02-23] MEDS: TIZANIDINE HCL 2 MG TABLET PO ×2 (11:52→17:48)
--- NOTE | 2020-02-23 17:54 | PM.IMPN ---
Progress Note: A&P Assessment and Plan (1) Sepsis: Qualifiers: Sepsis acute organ dysfunction status: unspecified Sepsis type: sepsis due to unspecified organism Qualified Code(s): A41.9 - Sepsis, unspecified organism Code(s): A41.9 - Sepsis, unspecified organism Status: Acute Assessment and Plan: Patient with septicemia related to E coli UTI. She has left lower extremity chronic venous stasis. . Blood culture returned positive for Gram-negative bacilli, E coli.also . Continue Primaxin . NG removed today and started diet. Continue to monitor (2) Acute UTI: Code(s): N39.0 - Urinary tract infection, site not specified Status: Acute Assessment and Plan: UA noted. [facility] culture [facility] the [facility] show E coli UTI. and here also . Patient started on Primaxin. Continue the same. blood cultures + for ecoli also (3) Acute on chronic renal failure: Qualifiers: Acute renal failure type: unspecified Chronic kidney disease stage: stage 3 (moderate) Qualified Code(s): N17.9 - Acute kidney failure, unspecified; N18.3 - Chronic kidney disease, stage 3 (moderate) Code(s): N17.9 - Acute kidney failure, unspecified; N18.9 - Chronic kidney disease, unspecified Status: Acute Assessment and Plan: Baseline creatinine anywhere from 1.4-2.0 when checked earlier this year. Creatinine 2.7 on admission here climbed to 3.1. Most likely ATN related to the septicemia. Paz catheter placed accurate I/O's. Bumex placed on hold. Continue IV fluids. and creatinine 1.4 today (4) Cellulitis: Qualifiers: Laterality: left Site of cellulitis: extremity Site of cellulitis of extremity: lower extremity Qualified Code(s): L03.116 - Cellulitis of left lower limb Code(s): L03.90 - Cellulitis, unspecified Status: Acute Assessment and Plan: Possible left lower extremity cellulitis but more likely chronic venous stasis dermatitis. She has mild erythema to the leg will monitor clinically. Doppler has been ordered and no DVT found. Continue current IV antibiotics. (5) Bilateral pulmonary infiltrates on CXR: Code(s): R91.8 - Other nonspecific abnormal finding of lung field Status: Acute Assessment and Plan: Chest x-ray on admission reviewed personally. Patient with patchy bilateral airspace disease. She was recently tested for COVID-19 3 days ago. Repeat testing has been performed and negative. She is being covered for pneumonia with the current antibiotics. (6) Obstructive sleep apnea: Code(s): G47.33 - Obstructive sleep apnea (adult) (pediatric) Status: Acute Assessment and Plan: The patient [facility] use [facility]AP [facility] the [facility]. CPAP has not been ordered at this time as the patient is currently being tested for COVID-19 and is not in a negative pressure room. (7) Rheumatoid arthritis: Code(s): M06.9 - Rheumatoid arthritis, unspecified Status: Acute Assessment and Plan: Patient Immunocompromised by her treatment for RA. She is on prednisone, hydroxychloroquine and sulfasalazine chronically. Will continue these medications. Start PT and OT when able. BP stable so will hold on stress dose steroids at this time. (8) Diabetes mellitus: Code(s): E11.9 - Type 2 diabetes mellitus without complications Status: Acute Assessment and Plan: A1c 5.5 last year. Glucose well controlled here. Start sliding scale protocol. (9) Anemia: Code(s): D64.9 - Anemia, unspecified Status: Acute Assessment and Plan: Patient with chronic anemia with hemoglobin earlier this year running 8-10 range. Hemoglobin 8.6 on admission here. Workup in December showing low TIBC but normal saturation, iron level and ferritin. B12 level normal in October. Probably anemia chronic disease related to RA. Continue to monitor. (10) Morbid obesity:
[2020-02-23 17:56] LABS: Glucose Point of Care 128 (65-105)
[2020-02-23] MEDS: EZETIMIBE 10 MG TABLET PO (21:59)
[2020-02-23 23:33] LABS: Glucose Point of Care 124 (65-105)
[2020-02-24] VITALS (9 sets, daily range): BP systolic 117–141; BP diastolic 48–93; PULSE 69–75; RESP 19–23; TEMP 36.2–37.2; O2SAT 95–100
[2020-02-24] MEDS: TIZANIDINE HCL 2 MG TABLET PO ×3 (01:08→17:06)
[2020-02-24 05:43] LABS: Basophils Absolute Auto 0.1 K/mm3 (0.0-0.1); Basophils Percent Auto 0.5 % (0.2-1.2); Eosinophils Absolute Auto 0.7 K/mm3 (0-0.3); Eosinophils Percent Auto 4.9 % (0-4.4); Hematocrit 24.8 % (37.0-47.0); Hemoglobin 7.7 g/dL (12.0-15.0); Immature Granulocyte Absolute 1.74 K/mm3 (0.00-0.031); Immature Granulocyte Percent A 11.6 % (0-0.5); Mean Corpuscular Hemoglobin 29.7 pg (26-34); Mean Corpuscular Volume 95.8 fl (80-100); Monocytes Absolute Auto 2.2 K/mm3 (0.1-0.6); Monocytes Percent Auto 14.8 % (2.6-8.5); Neutrophils Absolute Auto 9.3 K/mm3 (1.3-6.7); Neutrophils Percent Auto 62.2 % (45.5-73.1); Platelet Count Result 115 k/mm3 (150-375); Red Blood Count 2.59 M/mm3 (4.2-5.4); Red Cell Distribution Width 15.9 % (11.5-14.5)
[2020-02-24] MEDS: LEVOTHYROXINE SODIUM 75 MCG TABLET 150 MCG PO (05:59)
[2020-02-24 06:02] LABS: Blood Urea Nitrogen 70 mg/dL (7-17); Carbon Dioxide 27 mmol/L (22-30); Chloride 94 mmol/L (98-107); Estimated CRCL calculation 42 ml/min; Estimated Glomerular Filt Rate 29; Glucose 104 mg/dL (65-105); Potassium 3.9 mmol/L (3.4-5.0); Sodium 128 mmol/L (137-145)
[2020-02-24] MEDS: METOCLOPRAMIDE HCL INJ 10 MG/2 ML VIAL IV PUSH ×3 (06:03→16:51)
[2020-02-24 06:32] LABS: Platelet Estimate Decreased (Adequate)
[2020-02-24 06:33] LABS: Hypochromasia 1+ (NORMAL); Target Cells 1+ (NORMAL)
[2020-02-24 07:34] LABS: Glucose Point of Care 119 (65-105)
[2020-02-24] MEDS: ASCORBIC ACID 500 MG TABLET PO (08:11)
[2020-02-24] MEDS: APIXABAN 5 MG TABLET PO ×2 (08:11→16:13)
[2020-02-24] MEDS: ACIDOPHILUS/BULGARICUS CHEWABLE TABLET 2 TABLET PO (08:11)
[2020-02-24] MEDS: calcitrioL 0.25 MCG CAPSULE PO (08:11)
[2020-02-24] MEDS: DULoxetine HCL 30 MG CAPSULE.DR PO ×2 (08:12→16:13)
[2020-02-24] MEDS: CYANOCOBALAMIN 500 MCG TABLET PO (08:12)
[2020-02-24] MEDS: dilTIAZem HCL CD 180 MG CAP.ER.24H 360 MG PO (08:12)
[2020-02-24] MEDS: FLUTICASONE PROPIONATE 0.05% NA SPR 16 GM BTL (*BKC) 1 SPRAY NASAL (08:12)
[2020-02-24] MEDS: GABAPENTIN 300 MG CAPSULE PO ×2 (08:12→16:13)
[2020-02-24] MEDS: POLYSACCHARIDE IRON COMPLEX 150 MG CAPSULE PO (08:13)
[2020-02-24] MEDS: LORATADINE 10 MG TABLET PO (08:13)
[2020-02-24] MEDS: METOPROLOL TARTRATE 25 MG TABLET PO ×2 (08:13→21:15)
[2020-02-24] MEDS: hydrALAZINE HCL 50 MG TABLET PO ×3 (08:13→16:14)
[2020-02-24] MEDS: MAGNESIUM OXIDE 400 MG TABLET PO (08:13)
[2020-02-24] MEDS: SULFASALAZINE 500 MG TABLET 1000 MG PO ×2 (08:14→17:06)
[2020-02-24] MEDS: predniSONE 5 MG TABLET PO (08:14)
[2020-02-24] MEDS: PANTOPRAZOLE 40 MG TABLET PO (08:14)
[2020-02-24 11:45] LABS: Glucose Point of Care 117 (65-105)
--- NOTE | 2020-02-24 16:11 | PM.IMPN ---
Progress Note: A&P Assessment and Plan (1) Sepsis: Qualifiers: Sepsis acute organ dysfunction status: unspecified Sepsis type: sepsis due to unspecified organism Qualified Code(s): A41.9 - Sepsis, unspecified organism Code(s): A41.9 - Sepsis, unspecified organism Status: Acute Assessment and Plan: Patient with septicemia related to E coli UTI. She has left lower extremity chronic venous stasis. . Blood culture returned positive for Gram-negative bacilli, E coli.also . Continue Primaxin . NG removed and started diet 02/21. Continue to monitor (2) Acute UTI: Code(s): N39.0 - Urinary tract infection, site not specified Status: Acute Assessment and Plan: UA noted. Urine culture from the residential show E coli UTI. and here also . Patient started on Primaxin. Continue the same. blood cultures + for ecoli also (3) Acute on chronic renal failure: Qualifiers: Acute renal failure type: unspecified Chronic kidney disease stage: stage 3 (moderate) Qualified Code(s): N17.9 - Acute kidney failure, unspecified; N18.3 - Chronic kidney disease, stage 3 (moderate) Code(s): N17.9 - Acute kidney failure, unspecified; N18.9 - Chronic kidney disease, unspecified Status: Acute Assessment and Plan: Baseline creatinine anywhere from 1.4-2.0 when checked earlier this year. Creatinine 2.7 on admission here climbed to 3.1. Most likely ATN related to the septicemia. Paz catheter placed accurate I/O's. Bumex placed on hold. Continue IV fluids. and creatinine 1.8 today (4) Cellulitis: Qualifiers: Laterality: left Site of cellulitis: extremity Site of cellulitis of extremity: lower extremity Qualified Code(s): L03.116 - Cellulitis of left lower limb Code(s): L03.90 - Cellulitis, unspecified Status: Acute Assessment and Plan: Possible left lower extremity cellulitis but more likely chronic venous stasis dermatitis. She has mild erythema to the leg will monitor clinically. Doppler ordered and no DVT found. Continue current IV antibiotics. (5) Bilateral pulmonary infiltrates on CXR: Code(s): R91.8 - Other nonspecific abnormal finding of lung field Status: Acute Assessment and Plan: Chest x-ray on admission reviewed personally. Patient with patchy bilateral airspace disease. She was recently tested for COVID-19 3 days ago. Repeat testing has been performed and negative. She is being covered for pneumonia with the current antibiotics. recheck xray am (6) Obstructive sleep apnea: Code(s): G47.33 - Obstructive sleep apnea (adult) (pediatric) Status: Acute Assessment and Plan: The patient does use CPAP at the residential. CPAP has not been ordered at this time as the patient is currently being tested for COVID-19 and is not in a negative pressure room. (7) Rheumatoid arthritis: Code(s): M06.9 - Rheumatoid arthritis, unspecified Status: Acute Assessment and Plan: Patient Immunocompromised by her treatment for RA. She is on prednisone, hydroxychloroquine and sulfasalazine chronically. Will continue these medications. Start PT and OT when able. BP stable so will hold on stress dose steroids at this time. (8) Diabetes mellitus: Code(s): E11.9 - Type 2 diabetes mellitus without complications Status: Acute Assessment and Plan: A1c 5.5 last year. Glucose well controlled here. Start sliding scale protocol. (9) Anemia: Code(s): D64.9 - Anemia, unspecified Status: Acute Assessment and Plan: Patient with chronic anemia with hemoglobin earlier this year running 8-10 range. Hemoglobin 8.6 on admission here. Workup in December showing low TIBC but normal saturation, iron level and ferritin. B12 level normal in October. Probably anemia chronic disease related to RA. Continue to monitor. (10) Morbid obesity:
[2020-02-24 16:27] LABS: Glucose Point of Care 134 (65-105)
[2020-02-24] MEDS: EZETIMIBE 10 MG TABLET PO (21:14)
[2020-02-24 22:14] LABS: Glucose Point of Care 114 (65-105)
[2020-02-25] VITALS (7 sets, daily range): BP systolic 140–149; BP diastolic 67–74; PULSE 60–69; RESP 14–28; TEMP 36.1–37.1; O2SAT 95–100
[2020-02-25] MEDS: METOCLOPRAMIDE HCL INJ 10 MG/2 ML VIAL IV PUSH ×5 (00:05→23:24)
[2020-02-25] MEDS: TIZANIDINE HCL 2 MG TABLET PO ×3 (01:58→17:38)
[2020-02-25] MEDS: LEVOTHYROXINE SODIUM 150 MCG TABLET PO (06:11)
[2020-02-25 06:24] LABS: Hematocrit 25.3 % (37.0-47.0); Hemoglobin 8.1 g/dL (12.0-15.0); Mean Corpuscular Hemoglobin 30.2 pg (26-34); Mean Corpuscular Volume 94.4 fl (80-100); Mean Platelet Volume 10.7 fl (7.4-10.4); Platelet Count Result 169 k/mm3 (150-375); Red Blood Count 2.68 M/mm3 (4.2-5.4); Red Cell Distribution Width 15.5 % (11.5-14.5); White Blood Count 15.1 K/mm3 (4.5-10.0)
[2020-02-25 06:36] LABS: Potassium 3.8 mmol/L (3.4-5.0)
[2020-02-25 07:07] LABS: Blood Urea Nitrogen 70 mg/dL (7-17); Calcium 8.4 mg/dL (8.4-10.2); Carbon Dioxide 27 mmol/L (22-30); Chloride 92 mmol/L (98-107); Estimated CRCL calculation 48 ml/min; Estimated Glomerular Filt Rate 33; Glucose 105 mg/dL (65-105); Sodium 127 mmol/L (137-145)
[2020-02-25 07:09] LABS: Band Neutrophils Percent 6 % (0-6); Basophils Absolute Manual 0.15 K/mm3 (0.0-0.1); Basophils Percent Manual 1 % (0-1); Eosinophils Percent Manual 2 % (0-4); Lymphocytes Absolute Manual 1.05 K/mm3 (1.1-4.5); Metamyelocytes Percent 5 %; Monocytes Absolute Manual 0.75 K/mm3 (0.1-0.90); Monocytes Percent Manual 5 % (3-9); Myelocytes Percent 2 %; Neutrophils Absolute Manual 11.77 K/mm3 (1.7-7.2); Neutrophils Percent Manual 72 % (46-73); Total Cells Counted 100
[2020-02-25 07:10] LABS: Hypochromasia 3+ (NORMAL); Platelet Estimate Adequate (Adequate); Stomatocytes 2+ (NORMAL)
[2020-02-25 07:58] LABS: Glucose Point of Care 119 (65-105)
[2020-02-25] MEDS: APIXABAN 5 MG TABLET PO ×2 (10:04→17:36)
[2020-02-25] MEDS: DULoxetine HCL 30 MG CAPSULE.DR PO ×2 (10:08→17:36)
[2020-02-25] MEDS: dilTIAZem HCL CD 180 MG CAP.ER.24H 360 MG PO (10:08)
[2020-02-25] MEDS: hydrALAZINE HCL 50 MG TABLET PO ×3 (10:08→17:37)
[2020-02-25] MEDS: GABAPENTIN 300 MG CAPSULE PO ×2 (10:08→17:36)
[2020-02-25] MEDS: METOPROLOL TARTRATE 25 MG TABLET PO ×2 (10:09→21:23)
[2020-02-25] MEDS: SULFASALAZINE 500 MG TABLET 1000 MG PO ×2 (10:10→17:35)
[2020-02-25] MEDS: ACIDOPHILUS/BULGARICUS CHEWABLE TABLET 2 TABLET PO (10:12)
[2020-02-25] MEDS: MAGNESIUM OXIDE 400 MG TABLET PO (10:12)
[2020-02-25] MEDS: predniSONE 5 MG TABLET PO (10:12)
[2020-02-25] MEDS: CYANOCOBALAMIN 500 MCG TABLET PO (10:12)
[2020-02-25] MEDS: POLYSACCHARIDE IRON COMPLEX 150 MG CAPSULE PO (10:12)
[2020-02-25] MEDS: LORATADINE 10 MG TABLET PO (10:13)
[2020-02-25] MEDS: PANTOPRAZOLE 40 MG TABLET PO (10:13)
[2020-02-25] MEDS: calcitrioL 0.25 MCG CAPSULE PO (10:13)
[2020-02-25] MEDS: ASCORBIC ACID 500 MG TABLET PO (10:13)
[2020-02-25] MEDS: FLUTICASONE PROPIONATE 0.05% NA SPR 16 GM BTL (*BKC) 1 SPRAY NASAL (10:13)
[2020-02-25 12:36] LABS: Glucose Point of Care 129 (65-105)
--- NOTE | 2020-02-25 17:38 | PM.IMPN ---
Progress Note: A&P Assessment and Plan (1) Sepsis: Qualifiers: Sepsis acute organ dysfunction status: unspecified Sepsis type: sepsis due to unspecified organism Qualified Code(s): A41.9 - Sepsis, unspecified organism Code(s): A41.9 - Sepsis, unspecified organism Status: Acute Assessment and Plan: Patient with septicemia related to E coli UTI. She has left lower extremity chronic venous stasis. . Blood culture returned positive for Gram-negative bacilli, E coli.also . Continue Primaxin D# 7 IV antibiotics . NG removed and started diet 02/21. Continue to monitor (2) Acute UTI: Code(s): N39.0 - Urinary tract infection, site not specified Status: Acute Assessment and Plan: UA noted. [facility]rine culture from the [facility] show E coli UTI. and here also . Patient started on Primaxin. Continue the same. blood cultures + for ecoli also, D # 7 Iv antibiotics (3) Acute on chronic renal failure: Qualifiers: Acute renal failure type: unspecified Chronic kidney disease stage: stage 3 (moderate) Qualified Code(s): N17.9 - Acute kidney failure, unspecified; N18.3 - Chronic kidney disease, stage 3 (moderate) Code(s): N17.9 - Acute kidney failure, unspecified; N18.9 - Chronic kidney disease, unspecified Status: Acute Assessment and Plan: Baseline creatinine anywhere from 1.4-2.0 when checked earlier this year. Creatinine 2.7 on admission here climbed to 3.1. Most likely ATN related to the septicemia. Paz catheter placed accurate I/O's. Bumex placed on hold. Continue IV fluids. and creatinine 1.6 today (4) Cellulitis: Qualifiers: Laterality: left Site of cellulitis: extremity Site of cellulitis of extremity: lower extremity Qualified Code(s): L03.116 - Cellulitis of left lower limb Code(s): L03.90 - Cellulitis, unspecified Status: Acute Assessment and Plan: Possible left lower extremity cellulitis but more likely chronic venous stasis dermatitis. She had mild erythema to the leg which resolved. Doppler no DVT found. Continue current IV antibiotics. (5) Bilateral pulmonary infiltrates on CXR: Code(s): R91.8 - Other nonspecific abnormal finding of lung field Status: Acute Assessment and Plan: Chest x-ray on admission reviewed personally. Patient with patchy bilateral airspace disease. She was recently tested for COVID-19 3 days ago. Repeat testing has been performed and negative. She is being covered for pneumonia with the current antibiotics. xray today still some congestion but better than admission, probable some component of fluid and will start bumex 02/25 (6) Obstructive sleep apnea: Code(s): G47.33 - Obstructive sleep apnea (adult) (pediatric) Status: Acute Assessment and Plan: The patient [facility] use CPAP [facility] the [facility]. CPAP has not been ordered at this time as the patient is currently being tested for COVID-19 and is not in a negative pressure room. (7) Rheumatoid arthritis: Code(s): M06.9 - Rheumatoid arthritis, unspecified Status: Acute Assessment and Plan: Patient Immunocompromised by her treatment for RA. She is on prednisone, hydroxychloroquine and sulfasalazine chronically. Will continue these medications. Start PT and OT when able. BP stable so will hold on stress dose steroids at this time. (8) Diabetes mellitus: Code(s): E11.9 - Type 2 diabetes mellitus without complications Status: Acute Assessment and Plan: A1c 5.5 last year. Glucose well controlled here. Start sliding scale protocol. (9) Anemia: Code(s): D64.9 - Anemia, unspecified Status: Acute Assessment and Plan: Patient with chronic anemia with hemoglobin earlier this year running 8-10 range. Hemoglobin 8.6 on admission here. Workup in December showing low TIBC but normal saturation, iron level and ferritin.
[2020-02-25 17:49] LABS: Glucose Point of Care 153 (65-105)
[2020-02-25] MEDS: EZETIMIBE 10 MG TABLET PO (21:25)
[2020-02-25 21:49] LABS: Glucose Point of Care 132 (65-105)
[2020-02-26] VITALS (7 sets, daily range): BP systolic 125–149; BP diastolic 60–61; PULSE 60–69; RESP 16–26; TEMP 36.1–36.4; O2SAT 98–100
[2020-02-26] MEDS: TIZANIDINE HCL 2 MG TABLET PO ×3 (01:59→18:29)
[2020-02-26] MEDS: METOCLOPRAMIDE HCL INJ 10 MG/2 ML VIAL IV PUSH ×3 (06:23→18:29)
[2020-02-26] MEDS: LEVOTHYROXINE SODIUM 150 MCG TABLET PO (06:23)
[2020-02-26 06:35] LABS: Basophils Absolute Auto 0.1 K/mm3 (0.0-0.1); Basophils Percent Auto 0.4 % (0.2-1.2); Eosinophils Absolute Auto 0.5 K/mm3 (0-0.3); Eosinophils Percent Auto 3.2 % (0-4.4); Hemoglobin 8.2 g/dL (12.0-15.0); Immature Granulocyte Absolute 1.63 K/mm3 (0.00-0.031); Immature Granulocyte Percent A 11.5 % (0-0.5); Lymphocytes Absolute Auto 1.11 K/mm3 (0.9-3.2); Lymphocytes Percent Auto 7.9 % (18.3-44.2); Mean Corpuscular HGB Conc 31.5 g/dl (32-36); Mean Corpuscular Hemoglobin 30.7 pg (26-34); Mean Corpuscular Volume 97.4 fl (80-100); Mean Platelet Volume 10.3 fl (7.4-10.4); Monocytes Absolute Auto 1.7 K/mm3 (0.1-0.6); Monocytes Percent Auto 12.1 % (2.6-8.5); Neutrophils Absolute Auto 9.2 K/mm3 (1.3-6.7); Neutrophils Percent Auto 64.9 % (45.5-73.1); Platelet Count Result 208 k/mm3 (150-375); Red Blood Count 2.67 M/mm3 (4.2-5.4); Red Cell Distribution Width 15.2 % (11.5-14.5); White Blood Count 14.1 K/mm3 (4.5-10.0)
[2020-02-26 06:46] LABS: Blood Urea Nitrogen 70 mg/dL (7-17); Calcium 8.3 mg/dL (8.4-10.2); Carbon Dioxide 26 mmol/L (22-30); Chloride 92 mmol/L (98-107); Estimated CRCL calculation 59 ml/min; Estimated Glomerular Filt Rate 42; Glucose 103 mg/dL (65-105); Potassium 4.2 mmol/L (3.4-5.0); Sodium 125 mmol/L (137-145)
[2020-02-26 08:24] LABS: Glucose Point of Care 113 (65-105)
[2020-02-26] MEDS: DULoxetine HCL 30 MG CAPSULE.DR PO ×2 (09:58→18:28)
[2020-02-26] MEDS: SULFASALAZINE 500 MG TABLET 1000 MG PO ×2 (09:58→18:29)
[2020-02-26] MEDS: predniSONE 5 MG TABLET PO (09:58)
[2020-02-26] MEDS: MAGNESIUM OXIDE 400 MG TABLET PO (09:58)
[2020-02-26] MEDS: LORATADINE 10 MG TABLET PO (09:58)
[2020-02-26] MEDS: BUMETANIDE 1 MG TABLET 2 MG PO (09:59)
[2020-02-26] MEDS: APIXABAN 5 MG TABLET PO ×2 (09:59→18:29)
[2020-02-26] MEDS: GABAPENTIN 300 MG CAPSULE PO ×2 (09:59→18:28)
[2020-02-26] MEDS: POLYSACCHARIDE IRON COMPLEX 150 MG CAPSULE PO (09:59)
[2020-02-26] MEDS: ASCORBIC ACID 500 MG TABLET PO (09:59)
[2020-02-26] MEDS: ACIDOPHILUS/BULGARICUS CHEWABLE TABLET 2 TABLET PO (09:59)
[2020-02-26] MEDS: hydrALAZINE HCL 50 MG TABLET PO ×3 (09:59→18:28)
[2020-02-26] MEDS: calcitrioL 0.25 MCG CAPSULE PO (09:59)
[2020-02-26] MEDS: PANTOPRAZOLE 40 MG TABLET PO (10:00)
[2020-02-26] MEDS: CYANOCOBALAMIN 500 MCG TABLET PO (10:00)
[2020-02-26] MEDS: dilTIAZem HCL CD 180 MG CAP.ER.24H 360 MG PO (10:00)
[2020-02-26] MEDS: METOPROLOL TARTRATE 25 MG TABLET PO ×2 (10:01→21:50)
[2020-02-26] MEDS: FLUTICASONE PROPIONATE 0.05% NA SPR 16 GM BTL (*BKC) 1 SPRAY NASAL (10:03)
[2020-02-26 12:37] LABS: Glucose Point of Care 141 (65-105)
--- NOTE | 2020-02-26 17:08 | PM.IMPN ---
Progress Note: A&P Assessment and Plan (1) Sepsis: Qualifiers: Sepsis acute organ dysfunction status: unspecified Sepsis type: sepsis due to unspecified organism Qualified Code(s): A41.9 - Sepsis, unspecified organism Code(s): A41.9 - Sepsis, unspecified organism Status: Acute Assessment and Plan: Patient with septicemia related to E coli UTI. She has left lower extremity chronic venous stasis. . Blood culture returned positive for Gram-negative bacilli, E coli.also . Continue Primaxin D# 8 IV antibiotics WBC down to 14K today . NG removed and started diet 02/21. Continue to monitor (2) Acute UTI: Code(s): N39.0 - Urinary tract infection, site not specified Status: Acute Assessment and Plan: UA noted. [facility] show E coli UTI. and here also . Patient started on Primaxin. Continue the same. blood cultures + for ecoli also, D # 8 Iv antibiotics (3) Acute on chronic renal failure: Qualifiers: Acute renal failure type: unspecified Chronic kidney disease stage: stage 3 (moderate) Qualified Code(s): N17.9 - Acute kidney failure, unspecified; N18.3 - Chronic kidney disease, stage 3 (moderate) Code(s): N17.9 - Acute kidney failure, unspecified; N18.9 - Chronic kidney disease, unspecified Status: Acute Assessment and Plan: Baseline creatinine anywhere from 1.4-2.0 when checked earlier this year. Creatinine 2.7 on admission here climbed to 3.1. Most likely ATN related to the septicemia. Paz catheter placed accurate I/O's. Bumex placed on hold. Continue IV fluids. and creatinine 1.3 today (4) Cellulitis: Qualifiers: Laterality: left Site of cellulitis: extremity Site of cellulitis of extremity: lower extremity Qualified Code(s): L03.116 - Cellulitis of left lower limb Code(s): L03.90 - Cellulitis, unspecified Status: Acute Assessment and Plan: Possible left lower extremity cellulitis but more likely chronic venous stasis dermatitis. She had mild erythema to the leg which resolved. Doppler no DVT found. Continue current IV antibiotics. (5) Bilateral pulmonary infiltrates on CXR: Code(s): R91.8 - Other nonspecific abnormal finding of lung field Status: Acute Assessment and Plan: Chest x-ray on admission reviewed personally. Patient with patchy bilateral airspace disease. She was recently tested for COVID-19 3 days ago. Repeat testing has been performed and negative. She is being covered for pneumonia with the current antibiotics. xray 02/24 still some congestion but better than admission, probable some component of fluid and restarted bumex today 02/25 (6) Obstructive sleep apnea: Code(s): G47.33 - Obstructive sleep apnea (adult) (pediatric) Status: Acute Assessment and Plan: [facility]. CPAP has not been ordered at this time as the patient is currently being tested for COVID-19 and is not in a negative pressure room. (7) Rheumatoid arthritis: Code(s): M06.9 - Rheumatoid arthritis, unspecified Status: Acute Assessment and Plan: Patient Immunocompromised by her treatment for RA. She is on prednisone, hydroxychloroquine and sulfasalazine chronically. Will continue these medications. Start PT and OT when able. BP stable so will hold on stress dose steroids at this time. (8) Diabetes mellitus: Code(s): E11.9 - Type 2 diabetes mellitus without complications Status: Acute Assessment and Plan: A1c 5.5 last year. Glucose well controlled here. Start sliding scale protocol. (9) Anemia: Code(s): D64.9 - Anemia, unspecified Status: Acute Assessment and Plan: Patient with chronic anemia with hemoglobin earlier this year running 8-10 range. Hemoglobin 8.6 on admission here. Workup in December showing low TIBC but normal saturation,
[2020-02-26 17:23] LABS: Glucose Point of Care 125 (65-105)
[2020-02-26] MEDS: EZETIMIBE 10 MG TABLET PO (21:52)
[2020-02-26 22:55] LABS: Glucose Point of Care 150 (65-105)
[2020-02-27] MEDS: METOCLOPRAMIDE HCL INJ 10 MG/2 ML VIAL IV PUSH ×5 (00:29→23:43)
[2020-02-27] MEDS: TIZANIDINE HCL 2 MG TABLET PO ×3 (01:59→17:34)
[2020-02-27 05:38] LABS: Basophils Percent Auto 0.3 % (0.2-1.2); Eosinophils Absolute Auto 0.3 K/mm3 (0-0.3); Eosinophils Percent Auto 2.7 % (0-4.4); Hematocrit 25.4 % (37.0-47.0); Hemoglobin 7.9 g/dL (12.0-15.0); Immature Granulocyte Absolute 0.95 K/mm3 (0.00-0.031); Immature Granulocyte Percent A 7.6 % (0-0.5); Lymphocytes Absolute Auto 0.96 K/mm3 (0.9-3.2); Lymphocytes Percent Auto 7.6 % (18.3-44.2); Mean Corpuscular HGB Conc 31.1 g/dl (32-36); Mean Corpuscular Hemoglobin 29.8 pg (26-34); Mean Corpuscular Volume 95.8 fl (80-100); Mean Platelet Volume 10.3 fl (7.4-10.4); Monocytes Absolute Auto 1.6 K/mm3 (0.1-0.6); Monocytes Percent Auto 12.6 % (2.6-8.5); Neutrophils Absolute Auto 8.7 K/mm3 (1.3-6.7); Neutrophils Percent Auto 69.2 % (45.5-73.1); Platelet Count Result 234 k/mm3 (150-375); Red Blood Count 2.65 M/mm3 (4.2-5.4); White Blood Count 12.6 K/mm3 (4.5-10.0)
[2020-02-27 05:42] LABS: Blood Urea Nitrogen 64 mg/dL (7-17); Calcium 8.3 mg/dL (8.4-10.2); Carbon Dioxide 28 mmol/L (22-30); Chloride 92 mmol/L (98-107); Estimated CRCL calculation 59 ml/min; Estimated Glomerular Filt Rate 42; Glucose 105 mg/dL (65-105); Potassium 4.2 mmol/L (3.4-5.0); Sodium 127 mmol/L (137-145)
[2020-02-27] MEDS: LEVOTHYROXINE SODIUM 150 MCG TABLET PO (06:49)
[2020-02-27 07:50] LABS: Glucose Point of Care 152 (65-105)
[2020-02-27 08:02] VITALS: O2SAT 96
[2020-02-27] MEDS: ACIDOPHILUS/BULGARICUS CHEWABLE TABLET 2 TABLET PO (09:07)
[2020-02-27] MEDS: APIXABAN 5 MG TABLET PO ×2 (09:07→17:31)
[2020-02-27] MEDS: ASCORBIC ACID 500 MG TABLET PO (09:08)
[2020-02-27] MEDS: BUMETANIDE 1 MG TABLET 2 MG PO (09:08)
[2020-02-27] MEDS: CYANOCOBALAMIN 500 MCG TABLET PO (09:09)
[2020-02-27] MEDS: calcitrioL 0.25 MCG CAPSULE PO (09:09)
[2020-02-27] MEDS: dilTIAZem HCL CD 180 MG CAP.ER.24H 360 MG PO (09:09)
[2020-02-27] MEDS: FLUTICASONE PROPIONATE 0.05% NA SPR 16 GM BTL (*BKC) 1 SPRAY NASAL (09:10)
[2020-02-27] MEDS: DULoxetine HCL 30 MG CAPSULE.DR PO ×2 (09:10→17:31)
[2020-02-27 09:11] VITALS: PULSE 80
[2020-02-27] MEDS: METOPROLOL TARTRATE 25 MG TABLET PO ×2 (09:11→21:10)
[2020-02-27] MEDS: PANTOPRAZOLE 40 MG TABLET PO (09:11)
[2020-02-27] MEDS: hydrALAZINE HCL 50 MG TABLET PO ×3 (09:11→17:31)
[2020-02-27] MEDS: MAGNESIUM OXIDE 400 MG TABLET PO (09:11)
[2020-02-27] MEDS: GABAPENTIN 300 MG CAPSULE PO ×2 (09:11→17:31)
[2020-02-27] MEDS: LORATADINE 10 MG TABLET PO (09:11)
[2020-02-27] MEDS: POLYSACCHARIDE IRON COMPLEX 150 MG CAPSULE PO (09:11)
[2020-02-27] MEDS: SULFASALAZINE 500 MG TABLET 1000 MG PO ×2 (09:12→17:32)
[2020-02-27] MEDS: predniSONE 5 MG TABLET PO (09:12)
--- NOTE | 2020-02-27 10:58 | PCNWS ---
Weekly nutritional screen. Patient is tolerating current diet with adequate intake. No weight loss reported. No nutritional needs at this time.
[2020-02-27 11:35] LABS: Glucose Point of Care 123 (65-105)
[2020-02-27 14:11] VITALS: BP 139/62; PULSE 58; RESP 22; TEMP 36; O2SAT 98
--- NOTE | 2020-02-27 16:00 | PCCCNOTE ---
On 02/27/20, the student, [Kinza Gutierres ], provided care and completed [facility] documentation on this patient. I have reviewed the student's documentation and agree with the findings.
--- NOTE | 2020-02-27 16:24 | PM.IMPN ---
Progress Note: A&P Assessment and Plan (1) Sepsis: Qualifiers: Sepsis acute organ dysfunction status: unspecified Sepsis type: sepsis due to unspecified organism Qualified Code(s): A41.9 - Sepsis, unspecified organism Code(s): A41.9 - Sepsis, unspecified organism Status: Acute Assessment and Plan: Patient with septicemia related to E coli UTI. She has left lower extremity chronic venous stasis. . Blood culture returned positive for Gram-negative bacilli, E coli.also . Continue Primaxin D# 9 IV antibiotics WBC down to 12K today . NG removed and started diet 02/21. Continue to monitor (2) Acute UTI: Code(s): N39.0 - Urinary tract infection, site not specified Status: Acute Assessment and Plan: UA noted. Urine culture from the [facility] show E coli UTI. and here also . Patient started on Primaxin. Continue the same. blood cultures + for ecoli also, D # 9 Iv antibiotics (3) Acute on chronic renal failure: Qualifiers: Acute renal failure type: unspecified Chronic kidney disease stage: stage 3 (moderate) Qualified Code(s): N17.9 - Acute kidney failure, unspecified; N18.3 - Chronic kidney disease, stage 3 (moderate) Code(s): N17.9 - Acute kidney failure, unspecified; N18.9 - Chronic kidney disease, unspecified Status: Acute Assessment and Plan: Baseline creatinine anywhere from 1.4-2.0 when checked earlier this year. Creatinine 2.7 on admission here climbed to 3.1. Most likely ATN related to the septicemia. Paz catheter placed accurate I/O's. Bumex placed on hold. Continue IV fluids. and creatinine 1.3 today (4) Cellulitis: Qualifiers: Laterality: left Site of cellulitis: extremity Site of cellulitis of extremity: lower extremity Qualified Code(s): L03.116 - Cellulitis of left lower limb Code(s): L03.90 - Cellulitis, unspecified Status: Acute Assessment and Plan: Possible left lower extremity cellulitis but more likely chronic venous stasis dermatitis. She had mild erythema to the leg which resolved. Doppler no DVT found. Continue current IV antibiotics. (5) Bilateral pulmonary infiltrates on CXR: Code(s): R91.8 - Other nonspecific abnormal finding of lung field Status: Acute Assessment and Plan: Chest x-ray on admission reviewed personally. Patient with patchy bilateral airspace disease. She was recently tested for COVID-19 3 days ago. Repeat testing here negative. She is being covered for pneumonia with the current antibiotics. xray 02/24 still some congestion but better than admission, probable some component of fluid and restarted bumex 02/25 (6) Obstructive sleep apnea: Code(s): G47.33 - Obstructive sleep apnea (adult) (pediatric) Status: Acute Assessment and Plan: The patient does use CPAP at the [facility]. CPAP has not been ordered at this time as the patient is currently being tested for COVID-19 and is not in a negative pressure room. (7) Rheumatoid arthritis: Code(s): M06.9 - Rheumatoid arthritis, unspecified Status: Acute Assessment and Plan: Patient Immunocompromised by her treatment for RA. She is on prednisone, hydroxychloroquine and sulfasalazine chronically. Will continue these medications. Start PT and OT when able. BP stable so did not stress dose steroids. (8) Diabetes mellitus: Code(s): E11.9 - Type 2 diabetes mellitus without complications Status: Acute Assessment and Plan: A1c 5.5 last year. Glucose well controlled here. Start sliding scale protocol. fbs today 123 (9) Anemia: Code(s): D64.9 - Anemia, unspecified Status: Acute Assessment and Plan: Patient with chronic anemia with hemoglobin earlier this year running 8-10 range. Hemoglobin 8.6 on admission here. Workup in December showing low TIBC but normal saturation, iron level and ferritin. B1
[2020-02-27 16:37] LABS: Glucose Point of Care 153 (65-105)
[2020-02-27 20:02] LABS: SARS-CoV-2 RNA PCR Negative
[2020-02-27 20:27] LABS: Glucose Point of Care 134 (65-105)
[2020-02-27 20:35] VITALS: O2SAT 96
[2020-02-27 21:10] VITALS: PULSE 66
[2020-02-27] MEDS: EZETIMIBE 10 MG TABLET PO (21:10)
[2020-02-28] MEDS: TIZANIDINE HCL 2 MG TABLET PO ×3 (03:37→17:24)
[2020-02-28 05:02] LABS: Blood Urea Nitrogen 65 mg/dL (7-17); Calcium 8.4 mg/dL (8.4-10.2); Carbon Dioxide 29 mmol/L (22-30); Chloride 92 mmol/L (98-107); Estimated CRCL calculation 64 ml/min; Estimated Glomerular Filt Rate 46; Glucose 107 mg/dL (65-105); Potassium 4.4 mmol/L (3.4-5.0); Sodium 126 mmol/L (137-145)
[2020-02-28] MEDS: METOCLOPRAMIDE HCL INJ 10 MG/2 ML VIAL IV PUSH ×2 (05:55→11:43)
[2020-02-28] MEDS: LEVOTHYROXINE SODIUM 150 MCG TABLET PO (06:19)
[2020-02-28 07:58] LABS: Glucose Point of Care 112 (65-105)
[2020-02-28 08:11] VITALS: O2SAT 96
[2020-02-28] MEDS: ACIDOPHILUS/BULGARICUS CHEWABLE TABLET 2 TABLET PO (08:48)
[2020-02-28 08:49] VITALS: PULSE 56
[2020-02-28] MEDS: ASCORBIC ACID 500 MG TABLET PO (08:49)
[2020-02-28] MEDS: PANTOPRAZOLE 40 MG TABLET PO (08:49)
[2020-02-28] MEDS: BUMETANIDE 1 MG TABLET 2 MG PO (08:49)
[2020-02-28] MEDS: MAGNESIUM OXIDE 400 MG TABLET PO (08:49)
[2020-02-28] MEDS: CYANOCOBALAMIN 500 MCG TABLET PO (08:49)
[2020-02-28] MEDS: dilTIAZem HCL CD 180 MG CAP.ER.24H 360 MG PO (08:49)
[2020-02-28] MEDS: METOPROLOL TARTRATE 25 MG TABLET PO (08:49)
[2020-02-28] MEDS: calcitrioL 0.25 MCG CAPSULE PO (08:49)
[2020-02-28] MEDS: GABAPENTIN 300 MG CAPSULE PO ×2 (08:50→17:24)
[2020-02-28] MEDS: hydrALAZINE HCL 50 MG TABLET PO ×3 (08:50→17:24)
[2020-02-28] MEDS: APIXABAN 5 MG TABLET PO ×2 (08:50→17:24)
[2020-02-28] MEDS: DULoxetine HCL 30 MG CAPSULE.DR PO ×2 (08:50→17:24)
[2020-02-28] MEDS: predniSONE 5 MG TABLET PO (08:50)
[2020-02-28] MEDS: SULFASALAZINE 500 MG TABLET 1000 MG PO ×2 (08:50→17:24)
[2020-02-28] MEDS: POLYSACCHARIDE IRON COMPLEX 150 MG CAPSULE PO (08:50)
[2020-02-28] MEDS: LORATADINE 10 MG TABLET PO (09:01)
[2020-02-28] MEDS: FLUTICASONE PROPIONATE 0.05% NA SPR 16 GM BTL (*BKC) 1 SPRAY NASAL (09:37)
[2020-02-28] MEDS: BACLOFEN 5 MG TABLET PO (09:37)
--- NOTE | 2020-02-28 12:23 | PM.DS ---
DS: Admitting Diagnosis Admitting Diagnosis Admitting Diagnosis: Sepsis, unspecified organism DS: Discharge Diagnosis Discharge Diagnosis (1) Sepsis: Qualifiers: Sepsis acute organ dysfunction status: unspecified Sepsis type: sepsis due to unspecified organism Qualified Code(s): A41.9 - Sepsis, unspecified organism Code(s): A41.9 - Sepsis, unspecified organism Status: Acute Assessment and Plan: Patient with septicemia related to E coli UTI. She has left lower extremity chronic venous stasis. Blood culture returned positive for E coli also. Treated with Primaxin D# 10 IV antibiotics. NG removed and started diet 02/21. WBC down to 12K. (2) Acute UTI: Code(s): N39.0 - Urinary tract infection, site not specified Status: Acute Assessment and Plan: UA noted. Urine culture from the custodial showing E coli UTI as well as here. Patient started on Primaxin. Blood cultures also positive for Ecoli (2of2 bottles) treated with D #9 IV antibiotics. (3) Acute on chronic renal failure: Qualifiers: Acute renal failure type: unspecified Chronic kidney disease stage: stage 3 (moderate) Qualified Code(s): N17.9 - Acute kidney failure, unspecified; N18.3 - Chronic kidney disease, stage 3 (moderate) Code(s): N17.9 - Acute kidney failure, unspecified; N18.9 - Chronic kidney disease, unspecified Status: Acute Assessment and Plan: Baseline creatinine anywhere from 1.4-2.0 when checked earlier this year. Creatinine 2.7 on admission here and climbed to 3.1. Most likely ATN related to the septicemia. Paz catheter placed accurate I/O's. Bumex placed on hold and treated with IV fluids. Cr improved and fluids stopped. Bumex resumed. Tolerating this well with creatinine 1.2 today. (4) Cellulitis: Qualifiers: Laterality: left Site of cellulitis: extremity Site of cellulitis of extremity: lower extremity Qualified Code(s): L03.116 - Cellulitis of left lower limb Code(s): L03.90 - Cellulitis, unspecified Status: Acute Assessment and Plan: Possible left lower extremity cellulitis but more likely chronic venous stasis dermatitis. She had mild erythema to the leg which has resolved. Doppler negative for DVT. (5) Bilateral pulmonary infiltrates on CXR: Code(s): R91.8 - Other nonspecific abnormal finding of lung field Status: Acute Assessment and Plan: Chest x-ray on admission with patchy bilateral airspace disease. She was recently tested for COVID-19 02/18 and again 02/26 both negative. She is being covered for pneumonia with the current antibiotics. Repeat xray 02/24 still some congestion but better than admission, probable some component of fluid and restarted bumex 02/25. Stable on her 2L. (6) Obstructive sleep apnea: Code(s): G47.33 - Obstructive sleep apnea (adult) (pediatric) Status: Acute Assessment and Plan: The patient does use CPAP at the custodial. PAP therpay ordered but patient not wearing mask due to poor fit. Encouraged her to be compliant at [facility]. (7) Rheumatoid arthritis: Code(s): M06.9 - Rheumatoid arthritis, unspecified Status: Acute Assessment and Plan: Patient immunocompromised by her treatment for RA. She is on prednisone, hydroxychloroquine and sulfasalazine chronically which were continued. She recveived PT and OT here. (8) Diabetes mellitus: Code(s): E11.9 - Type 2 diabetes mellitus without complications Status: Acute Assessment and Plan: A1c 5.5 last year. Glucose well controlled here. (9) Anemia: Code(s): D64.9 - Anemia, unspecified Status: Acute Assessment and Plan: Patient with chronic anemia with hemoglobin earlier this year running 8-10 range. Hemoglobin 8.6 on admission here. Workup in December showing low TIBC but normal saturation, iron level and ferritin. B12 level normal
[2020-02-28 13:35] VITALS: BP 124/51; PULSE 51; RESP 18; TEMP 35.9; O2SAT 100
[2020-02-28 13:49] LABS: Glucose Point of Care 138 (65-105)
[2020-02-28 16:44] LABS: Glucose Point of Care 113 (65-105)
== END 2020-02-28 17:38 | DRG 871 ==
LOC: ANHED 18:12 → ANH3MEDSUR 18:49 → ANHICU 19:57 → ANHIMU 02-21 09:38 → ANH2MED 02-22 18:50
PROVIDERS: Internal Medicine; Admitting Provider Internal Medicine; Emergency Provider Emergency Medicine; PCP Family Medicine; Visit Provider Internal Medicine
DX: A41.51 Sepsis due to Escherichia coli [E. coli] (principal); N17.0 Acute kidney failure with tubular necrosis; N39.0 Urinary tract infection, site not specified; L03.116 Cellulitis of left lower limb; Z68.43 Body mass index [BMI] 50.0-59.9, adult; E87.1 Hypo-osmolality and hyponatremia; I13.0 Hypertensive heart and chronic kidney disease with heart failure and stage 1 through stage 4 chronic kidney disease, or unspecified chronic kidney disease; I50.32 Chronic diastolic (congestive) heart failure; N18.4 Chronic kidney disease, stage 4 (severe); J96.11 Chronic respiratory failure with hypoxia; J98.11 Atelectasis; Z16.24 Resistance to multiple antibiotics; Z20.828 Contact with and (suspected) exposure to other viral communicable diseases; E11.22 Type 2 diabetes mellitus with diabetic chronic kidney disease; G35 Multiple sclerosis; I87.2 Venous insufficiency (chronic) (peripheral); M06.9 Rheumatoid arthritis, unspecified; R91.8 Other nonspecific abnormal finding of lung field; G47.33 Obstructive sleep apnea (adult) (pediatric); E66.01 Morbid (severe) obesity due to excess calories; I48.91 Unspecified atrial fibrillation; K21.9 Gastro-esophageal reflux disease without esophagitis; D63.8 Anemia in other chronic diseases classified elsewhere; M10.9 Gout, unspecified; M81.0 Age-related osteoporosis without current pathological fracture; Z79.01 Long term (current) use of anticoagulants; Z86.718 Personal history of other venous thrombosis and embolism; Z85.42 Personal history of malignant neoplasm of other parts of uterus; Z90.710 Acquired absence of both cervix and uterus; Z87.891 Personal history of nicotine dependence
CPT/HCPCS: 36415; 36569; 36600; 51701; 71045; 74018; 80048; 80053; 81001; 82375; 82728; 82805; 83036; 83050; 83605; 83615; 83735; 84100; 84145; 84443; 84484; 85025; 85610; 85730; 86140; 87040; 87077; 87086; 87088; 87186; 87635; 93005; 93306; 93971; 94640; 94660; 96361; 96365; 96367; 96375; 97161; 97166; 99285; A9270; C1751; C9803; J0131; J0456; J0696; J0743; J2765; J7030; J7050; J7060; J7512; U0003

== ENCOUNTER 2020-03-20 07:43 | Inpatient (IN) | payer MEDICARE, MEDICAID, SELFPAY ==
[2020-03-20] VITALS (52 sets, daily range): BP systolic 95–160; BP diastolic 42–87; PULSE 85–132; RESP 12–36; TEMP 37.3–39; O2SAT 73–100; BMI 51.2
--- NOTE | ~2020-03-20 | XR_ITS ---
EXAMINATION: XR chest 1V portable EXAM DATE: 03/25/2020 05:44 INDICATION: Pneumonia. COVID 19 TECHNIQUE: Portable AP frontal chest x-ray was obtained. Comparison is made to prior examination from 03/24/2020, 03/23. FINDINGS: Patient has been extubated and feeding tube removed. There is a right IJ venous line. Scattered bilateral ill-defined acute airspace disease. No sizable pleural effusion. There is no pneu mothorax suspected. Cardiac silhouette is enlarged but stable in size compared to prior exam. The bones and soft tissues are unremarkable. Accounting for differences in technique, there is no signif icant interval change. IMPRESSION: Ill-defined bilateral edema and/or pneumonia. Reviewed, dictated and finalized at location A.
--- NOTE | ~2020-03-20 | XR_ITS ---
EXAMINATION: XR abdomen NG/feed tube insert INDICATION: OG insertion TECHNIQUE: Portable AP KUB-NG at 0839 hours COMPARISON: None available FINDINGS: The OG tube is in the stomach. The bowel gas pattern is unremarkable. There are interstitia l and airspace opacities of the visualized lung bases. IMPRESSION: 1. OG tube in the stomach. Reviewed, dictated and finalized at location B. IMPRESSION: 1. OG tube in the stomach.
--- NOTE | ~2020-03-20 | XR_ITS ---
EXAMINATION: XR chest ET placement INDICATION: Endotracheal tube placement TECHNIQUE: Portable AP chest at 0838 hours COMPARISON: 03/20/2020 FINDINGS: The endotracheal tube ends approximately 1.2 cm above the jd. The nasogastric tube is f ollowed as far as the stomach. Its tip is beyond the inferior margin of the radiograph. A right inter nal jugular catheter is been inserted which ends in the distal superior vena cava. Diffuse lung disea se is unchanged. Small pleural effusions are questioned. There is no pneumothorax. The cardiomediasti nal silhouette is stable. IMPRESSION: 1. Endotracheal tube 1.2 cm above the jd. Consider repositioning to an ideal distance of at least 2 cm. 2. Nasogastric and right internal jugular catheter insertions. 3. Diffuse lung disease without significant change, consistent with pneumonia and/or pulmonary edema and/or atelectasis. Reviewed, dictated and finalized at location B. IMPRESSION: 1. Endotracheal tube 1.2 cm above the jd. Consider repositioning to an idea l distance of at least 2 cm. 2. Nasogastric and right internal jugular catheter insertions. 3. Diffuse lung disease without significant change, consistent with pneumonia a nd/or pulmonary edema and/or atelectasis.
--- NOTE | ~2020-03-20 | US_ITS ---
EXAMINATION: US renal BI DATE: 03/22/2020 11:01 INDICATION: Decreased renal function. TECHNIQUE: Multiple ultrasound grayscale images of the kidneys were obtained. COMPARISON: Abdomen ultrasound 02/06/2019, CT abdomen 02/04/2019 FINDINGS: The right kidney measures 12.1 x 6.4 x 5.1 cm. The left kidney measures 11.3 x 6.6 x 3.1 cm. The kidn eys demonstrate normal parenchymal echogenicity. There is a 1.8 cm cyst in left kidney. There is no h ydronephrosis. The bladder is decompressed by a Paz catheter. IMPRESSION: 1. Normal kidney sizes. No hydronephrosis. Reviewed, dictated and finalized at location A.
--- NOTE | ~2020-03-20 | XR_ITS ---
EXAMINATION: XR chest 1V portable EXAM DATE: 03/24/2020 05:49 INDICATION: Pneumonia. COVID 19 TECHNIQUE: Portable AP frontal chest x-ray was obtained. Comparison is made to prior examination from 730, 731. FINDINGS: Endotracheal tube tip is about 3 centimeters above the jd (ideal range is between 2 to 5 cm). There is a nasogastric tube seen with tip collimated off the study, but below the left hemidi aphragm. There is a right IJ venous line. Scattered bilateral ill-defined acute airspace disease. Possible small pleural effusions. There is n o pneumothorax suspected. Cardiac silhouette is enlarged but stable in size compared to prior exam. The bones and soft tissues are unremarkable. Compared to prior study, suspect some interval improv ement in the airspace disease. IMPRESSION: 1. Line(s) and tube(s) in position. 2. Ill-defined bilateral edema and/or pneumonia, suspect some interval improvement. Reviewed, dictated and finalized at location A. IMPRESSION: 1. Line(s) and tube(s) in position. 2. Ill-defined bilateral edema and/or pneumonia, suspect some interval improve ment.
--- NOTE | ~2020-03-20 | XR_ITS ---
EXAMINATION: XR chest 1V portable EXAM DATE: 03/22/2020 06:05 INDICATION: Pneumonia. COVID 19 TECHNIQUE: Portable AP frontal chest x-ray was obtained. Comparison is made to prior examination from 03/20, 03/21. FINDINGS: Endotracheal tube tip is 3 centimeters above the jd (ideal range is between 2 to 5 cm). There is a nasogastric tube seen with tip collimated off the study, but below the left hemidiaphrag m. There is a right IJ venous line. Scattered bilateral ill-defined acute airspace disease again seen, does not appear significantly carter ged compared to yesterday but slightly progressed compared to 03/20/2020. Possible small pleural effus ions. There is no pneumothorax suspected. Cardiac silhouette is enlarged but stable in size compar ed to prior exam. The bones and soft tissues are unremarkable. IMPRESSION: 1. Line(s) and tube(s) in position. 2. Scattered bilateral ill-defined edema and/or pneumonia. Reviewed, dictated and finalized at location A.
--- NOTE | ~2020-03-20 | XR_ITS ---
EXAMINATION: XR chest 1V portable EXAM DATE: 03/20/2020 08:29 INDICATION: Shortness of breath. TECHNIQUE: Portable AP frontal chest x-ray was obtained. Comparison is made to prior examination from 02/25/2020. FINDINGS: Patient is rotated to the right. There are no pleural effusions. Cardiac silhouette is enl arged but stable in size compared to prior exam. There is pulmonary vascular congestion. No confluent consolidation, pneumothorax or pleural effusion suspected. Bones are unremarkable. No IMPRESSION: Cardiomegaly, congestion. Possible mild pulmonary edema. Reviewed, dictated and finalized at location A.
--- NOTE | ~2020-03-20 | XR_ITS ---
EXAMINATION: XR chest 1V portable INDICATION: COVID pneumonia TECHNIQUE: Portable AP chest at 0543 hours COMPARISON: 03/25/2020 FINDINGS: A right internal jugular catheter ends with its tip in the superior vena cava. Airspace opa cities of the mid and lower lung zones persist but have improved. There is no pleural effusion or pne umothorax. Multiple right-sided rib fractures are noted. The cardiomediastinal silhouette is stable. IMPRESSION: 1. Persistent but improved airspace opacities of the mid and lower lung zones, consistent with pneumo carlos. Reviewed, dictated and finalized at location A. IMPRESSION: 1. Persistent but improved airspace opacities of the mid and lower lung zones, consistent with pneumonia.
--- NOTE | ~2020-03-20 | XR_ITS ---
EXAMINATION: XR chest 1V portable EXAM DATE: 03/23/2020 06:16 INDICATION: Pneumonia. COVID 19 TECHNIQUE: Portable AP frontal chest x-ray was obtained. Comparison is made to prior examination from 03/21, 03/22. FINDINGS: Endotracheal tube tip is 2-3 centimeters above the jd (ideal range is between 2 to 5 cm ). There is a nasogastric tube seen with tip collimated off the study, but below the left hemidiaphr agm. There is a right IJ venous line. Scattered bilateral ill-defined acute airspace disease again seen. Possible small pleural effusions. There is no pneumothorax suspected. Cardiac silhouette is enlarged but stable in size compared to prior exam. The bones and soft tissues are unremarkable. There is no significant interval change. IMPRESSION: 1. Line(s) and tube(s) in position. 2. Scattered bilateral ill-defined edema and/or pneumonia. Reviewed, dictated and finalized at location A.
--- NOTE | 2020-03-20 07:54 | ECG_ITS ---
Measurements Intervals [place] Rate: 124 P: IA: 0 QRS: -11 QRSD: 106 T: 66 QT: 301 QTc: 433 Interpretive Statements SINUS TACHYCARDIA BORDERLINE R WAVE PROGRESSION, ANTERIOR LEADS BORDERLINE ST-T WAVE ABNORMALITY- HIGH LATERAL LEADS BASELINE ARTIFACT- II, III, AVF, V6 ABNORMAL ECG Electronically Signed On 03-20-2020 7:59:34 CDT by Willian Eid D.O.
--- NOTE | 2020-03-20 07:55 | ED.SOB ---
HPI - SOB/Dyspnea General Chief Complaint: Shortness of Breath/Dyspnea Stated Complaint: DIFFICULTY BREATHING Time Seen by Provider: 03/20/20 07:45 History of Present Illness HPI Narrative: Patient presents via EMS for shortness of breath. It started this morning. Associated with fever. She has been intubated in the distant past. She arrives on CPAP with improvement in her dyspnea. She complains of pain in her legs and low back. She has a history of lower leg cellulitis. MD elicited complaint: shortness of breath Related Data Home Medications Medication Instructions Recorded Confirmed Breo Ellipta 1 inh INHALATION DAILY 11/18/19 02/19/20 acidophilus-pectin, citrus 2 cap PO DAILY 11/18/19 02/19/20 [Acidophilus Probiotic] ascorbic acid (vitamin C) 500 mg PO DAILY 11/18/19 02/19/20 baclofen 5 mg PO DAILY PRN 11/18/19 02/19/20 cyanocobalamin (vitamin B-12) 500 mcg PO DAILY 11/18/19 02/19/20 hydralazine 50 mg PO TID 11/18/19 02/19/20 hydroxychloroquine 200 mg PO DAILY 11/18/19 02/19/20 ipratropium-albuterol 3 ml INHALATION QID PRN 11/18/19 02/19/20 levothyroxine 150 mcg PO DAILY 11/18/19 02/19/20 Eliquis 5 mg PO BID 02/19/20 02/19/20 albuterol sulfate [ProAir HFA] 1 puff INHALATION QID PRN 02/19/20 02/19/20 bisacodyl 5 mg PO HS PRN 02/19/20 02/19/20 calcitriol 0.25 mcg PO DAILY 02/19/20 02/19/20 cetirizine 10 mg PO DAILY 02/19/20 02/19/20 diltiazem HCl 360 mg PO DAILY 02/19/20 02/19/20 docusate sodium 100 mg PO DAILY PRN 02/19/20 02/19/20 duloxetine 30 mg PO DAILY PRN 02/19/20 02/19/20 esomeprazole magnesium 40 mg PO DAILY 02/19/20 02/19/20 ezetimibe 10 mg PO HS 02/19/20 02/19/20 fluticasone propionate 1 spray INTRANASAL DAILY 02/19/20 02/19/20 magnesium oxide 400 mg PO DAILY 02/19/20 02/19/20 melatonin 5 mg PO HS PRN 02/19/20 02/19/20 metoclopramide HCl 10 mg PO AC 02/19/20 02/19/20 polysaccharide iron complex 150 mg PO DAILY 02/19/20 02/19/20 [Poly-Iron] prednisone 5 mg PO DAILY 02/19/20 02/19/20 sulfasalazine 1,000 mg PO BID 02/19/20 02/19/20 tizanidine 2 mg PO Q8H 02/19/20 02/19/20 furosemide 60 mg PO DAILY 03/20/20 Allergies Allergy/AdvReac Type Severity Reaction Status Date / Time vancomycin Allergy Intermediate Rash Verified 03/20/20 08:33 erythromycin base Allergy Mild Unknown Verified 03/20/20 08:33 piperacillin Allergy Mild Headache Verified 03/20/20 08:33 Sulfa (Sulfonamide Allergy Mild Unknown Verified 03/20/20 08:33 Antibiotics) tazobactam Allergy Mild Headache Verified 03/20/20 08:33 adhesive tape Allergy Unknown unknown Verified 03/20/20 08:33 amlodipine Allergy Unknown unknown Verified 03/20/20 08:33 cefpodoxime Allergy Unknown unknown Verified 03/20/20 08:33 Iodinated Contrast Media Allergy Unknown unknown Verified 03/20/20 08:33 iodine Allergy Unknown unknown Verified 03/20/20 08:33 latex Allergy Unknown unknown Verified 03/20/20 08:33 levofloxacin Allergy Unknown unknown Verified 03/20/20 08:33 metformin Allergy Unknown unknown Verified 03/20/20 08:33 Vadlovy-Hah-Cyl Reductase Allergy Unknown unknown Verified 03/20/20 08:33 Inhibitor Review of Systems Review of Systems: Narrative: Review of systems is limited due to her CPAP and shortness of breath. All systems reviewed & are unremarkable except as noted in HPI and below PMFSH Past Medical History Medical History Anemia Chronic anticoagulation Due to left lower extremity DVT Chronic respiratory failure with hypoxia Diabetes mellitus with insulin therapy Diastolic CHF Last echocardiogram January 2019 demonstrating mild left ventricular hypertrophy, grade 1 diastolic dysfunction, EF of 65% DVT (deep venous thrombosis) Left lower extremity DVT 2016 following complicated bowel surgery with V/Q scan suggestive of intermediate probability of pulmonary embolism March 2018 on chronic anticoagulation with Eliquis after failure of Xarelto treatment in 2018 GERD (gastroesophageal reflux disease) Gout
[2020-03-20 08:13] LABS: Basophils Absolute Auto 0.1 K/mm3 (0.0-0.1); Basophils Percent Auto 0.4 % (0.2-1.2); Eosinophils Absolute Auto 0.3 K/mm3 (0-0.3); Eosinophils Percent Auto 2.1 % (0-4.4); Hematocrit 28.9 % (37.0-47.0); Hemoglobin 8.5 g/dL (12.0-15.0); Immature Granulocyte Absolute 0.13 K/mm3 (0.00-0.031); Immature Granulocyte Percent A 0.8 % (0-0.5); Lymphocytes Absolute Auto 0.77 K/mm3 (0.9-3.2); Mean Corpuscular HGB Conc 29.4 g/dl (32-36); Mean Corpuscular Hemoglobin 30.5 pg (26-34); Mean Corpuscular Volume 103.6 fl (80-100); Mean Platelet Volume 9.2 fl (7.4-10.4); Monocytes Absolute Auto 1.8 K/mm3 (0.1-0.6); Monocytes Percent Auto 11.8 % (2.6-8.5); Neutrophils Absolute Auto 12.3 K/mm3 (1.3-6.7); Neutrophils Percent Auto 79.9 % (45.5-73.1); Platelet Count Result 242 k/mm3 (150-375); Red Blood Count 2.79 M/mm3 (4.2-5.4); Red Cell Distribution Width 14.6 % (11.5-14.5); White Blood Count 15.4 K/mm3 (4.5-10.0)
[2020-03-20 08:16] LABS: Alveolar/Arterial O2 Gradient 580.4 mmHg; Base Excess ABG 3.5 mEq/l (+/-2.0); Fractional Inspired Oxygen 100 %; HCO3 ABG 29.3 mEq/l (22.0-26.0); Oxygen Content ABG 12.1 %vol (16.0-22.0); Oxygen Saturation ABG 95.6 % (95.0-100.0); Oxyhemoglobin 93.5 % THb (90.0-100.0); PCO2 ABG 51.2 mmHg (35.0-45.0); PO2 ABG 81.4 mmHg (80.0-100.0); PO2 FiO2 Ratio Arterial Blood 0.81 %; Total Hemoglobin 9.1 g/dL (12.0-18.0)
[2020-03-20 08:17] LABS: Device OTHER DEVICE; Modified Allen's Test Pass; Site Drawn RIGHT RADIAL
[2020-03-20 08:19] LABS: pH ABG 7.376 (7.350-7.450)
[2020-03-20] MEDS: CLINDAMYCIN 900 MG/NS 50 ML 900 MG/50 ML PIGGYBACK 50 MG IVPB (08:27)
[2020-03-20 08:28] LABS: Alanine Aminotransferase 7 U/L (4-35); Albumin Level 3.6 g/dL (3.5-5.1); Alkaline Phosphatase 76 U/L (38-126); Anion Gap 11.8 mmol/L (7-16); Aspartate Amino Transferase 22 U/L (14-36); Bilirubin,Total 0.5 mg/dL (0.2-1.3); Blood Urea Nitrogen 46 mg/dL (7-17); Calcium 9.1 mg/dL (8.4-10.2); Carbon Dioxide 34 mmol/L (22-30); Chloride 96 mmol/L (98-107); Estimated CRCL calculation 47 ml/min; Estimated Glomerular Filt Rate 35; Glucose 110 mg/dL (65-105); Potassium 4.8 mmol/L (3.4-5.0); Sodium 137 mmol/L (137-145)
[2020-03-20 08:37] LABS: Troponin I 0.217 ng/mL (0.000-0.034)
[2020-03-20 08:41] LABS: Add Urine Microscopic? YES; Appearance Urine Cloudy (Clear); Bacteria Urine 2+ /hpf; Bilirubin Urine Negative (Negative); Color Urine Yellow (Yellow); Glucose Urine UA Negative (Negative); Ketones Urine Negative (Negative); Leukocyte Esterase Ur 2+ LEU/UL (Negative); Mucus Urine Rare /lpf; Nitrate Urine Negative (Negative); Protein Urine 2+ mg/dL (Negative); Specific Grav Ur 1.017 (1.001-1.035); Squamous Epithelial Cell Urine Rare /hpf (Few); Urobilinogen Urine Negative mg/dL (<2.0); WBC Clumps Urine Present /HPF; WBC Urine 21-30 /hpf
[2020-03-20 08:45] LABS: Blood Urine Negative (Negative)
[2020-03-20] MEDS: FUROSEMIDE INJ 40 MG/4 ML VIAL IV PUSH (09:08)
[2020-03-20] MEDS: BUMETANIDE INJ 1 MG/4 ML VIAL IV PUSH (09:08)
[2020-03-20 09:26] LABS: NT Pro B Type Natriuretic Pept 6090 PG/ML (5-100)
[2020-03-20] MEDS: NITROFURANTOIN MONOHYD MACROCR 100 MG CAP PO ×2 (10:59→22:01)
--- NOTE | 2020-03-20 11:30 | PC.NURSE ---
Pt placed on 3l NC. Tolerating well.
[2020-03-20 14:15] LABS: Troponin I 0.935 ng/mL (0.000-0.034)
[2020-03-20] MEDS: ASPIRIN 81 MG CHEWABLE TABLET 324 MG PO (15:15)
--- NOTE | 2020-03-20 15:41 | PC.NURSE ---
Patient arrived to ICU 5 via bed. Transferred with 4 staff members to bed with purple slides. Patient alert and oriented, nasal cannula at 2L O2. Patient settled and hospitalist aware of patient on floor. At 1535
--- NOTE | 2020-03-20 18:00 | PM.IMHP ---
H&P: HPI History of Present Illness Chief complaint: Shortness of breath. Narrative: Romina Perez is a chronically ill 60-year-old female with multiple medical problems to include morbid obesity, obstructive sleep apnea, chronic kidney disease, rheumatoid arthritis on immunosuppressants, chronic stasis dermatitis, home he type 2 diabetes mellitus, recurrent urinary tract infections currently on linezolid for VRE UTI, and several other comorbidities who presented to the emergency department earlier this morning via EMS from [facility] for evaluation of shortness of breath. She had a recent hospitalization from 02/18 through 02/28/2020 with E coli septicemia and urinary tract infection, treated with 10 days of imipenem/cisplatin. Over the last couple of days she has been feeling short of breath, much worse this morning, and thus she was brought in for evaluation. She has also developed a dry cough and decreased appetite in addition to fever and chills. Not long after admission to the floor, we received a phone call that she tested positive for COVID-19 on a swab obtained yesterday. At the time of my evaluation, she feels very warm and has spiked a fever to 102.2? Fahrenheit. She denies headache, neck ache, sinus congestion, rhinorrhea, otalgia, odynophagia, anosmia, dyskinesia, nausea, vomiting, diarrhea, and dysuria. She also denies chest pain, pleuritic pain, palpitations Review of Systems Review of Systems: Narrative: 12 systems were reviewed with pertinent positives and negatives as per HPI. She denies headache. No lightheadedness or dizziness. She denies paresthesias. She has chronic lower extremity edema and venous stasis dermatitis, which is unchanged. She also reports chronic hyper pigmentation of her extremities. She denies dysphagia and concerns for aspiration. Except as documented, all other systems were reviewed and are negative. [facility] Past Medical History Medical History (Updated 03/21/20 @ 01:32 by Philly Boyd PA-C) Anemia Chronic anticoagulation For treatment of left lower extremity DVT. Chronic respiratory failure with hypoxia Deep venous thrombosis Left lower extremity DVT in 2016 following complicated bowel surgery with V/Q scan suggestive of intermediate probability for pulmonary embolism in March 2018 while on Xarelto. She is now on Eliquis. Diastolic CHF Last echocardiogram January 2019 demonstrating mild left ventricular hypertrophy, grade 1 diastolic dysfunction, EF of 65%. Gastroesophageal reflux disease Gout Hypertension Morbid obesity Obstructive sleep apnea on CPAP Osteoporosis Recurrent urinary tract infection Rheumatoid arthritis On immunosuppressants. Stage 3 chronic kidney disease With baseline creatinine between 1.5 and 2.0. Type 2 diabetes mellitus Hemoglobin A1c was 5.4% on 02/21/2020. Uterine cancer Status post hysterectomy and radiation therapy. Surgical History Surgical History (Updated 03/21/20 @ 01:07 by Philly Boyd PA-C) History of bowel resection ?Twisted bowel? with surgical correction in April 2017 at [facility] in [place]. Her postoperative course was complicated by wound infection and DVT. History of hysterectomy for cancer Family History Family History Father Diabetes mellitus Cancer Hypertension Mother Diabetes mellitus Hypertension Social History Social History (Updated 03/21/20 @ 01:08 by Philly Boyd PA-C) Social History: Primary care physician: Dr. Pam Samuels. Healthcare power of disability attorney: Oleg Perez, brother. Code status: Full code Smoking packs per day: 1 Smoking cigarettes per day: 20.0 Years smoked: 10 Smoking pack-years: 10.00 Smoking status: Former smoker Tobacco type: cigarettes Alcohol intake: unknown Substance use: never Additional living arrangements comments: Patient is a long-term skilled nursing resid
[2020-03-20] MEDS: MELATONIN 5 MG TABLET PO (22:01)
[2020-03-20] MEDS: GABAPENTIN 300 MG CAPSULE PO (22:01)
[2020-03-20] MEDS: APIXABAN 5 MG TABLET PO (22:01)
[2020-03-20] MEDS: LINEZOLID 600 MG/300 ML 600 MG/300 ML SOLN 300 MG IVPB (22:02)
[2020-03-20] MEDS: EZETIMIBE 10 MG TABLET PO (22:02)
[2020-03-21] VITALS (58 sets, daily range): BP systolic 74–131; BP diastolic 41–94; PULSE 74–138; RESP 18–33; TEMP 37.2–38.4; O2SAT 92–100
[2020-03-21] MEDS: IMIPENEM/CILASTATIN SODIUM 250 MG in DEXTROSE 5% 100 ML 300 MG IVPB ×3 (02:47→11:30)
[2020-03-21] MEDS: ONDANSETRON INJ 4 MG/2 ML VIAL IV PUSH (03:37)
[2020-03-21 04:09] LABS: Basophils Absolute Auto 0.1 K/mm3 (0.0-0.1); Basophils Percent Auto 0.5 % (0.2-1.2); Eosinophils Absolute Auto 0.3 K/mm3 (0-0.3); Eosinophils Percent Auto 1.8 % (0-4.4); Hematocrit 28.5 % (37.0-47.0); Hemoglobin 8.3 g/dL (12.0-15.0); Immature Granulocyte Absolute 0.17 K/mm3 (0.00-0.031); Immature Granulocyte Percent A 0.9 % (0-0.5); Lymphocytes Absolute Auto 0.72 K/mm3 (0.9-3.2); Lymphocytes Percent Auto 3.8 % (18.3-44.2); Mean Corpuscular HGB Conc 29.1 g/dl (32-36); Mean Corpuscular Hemoglobin 30.2 pg (26-34); Mean Corpuscular Volume 103.6 fl (80-100); Mean Platelet Volume 9.9 fl (7.4-10.4); Monocytes Absolute Auto 0.7 K/mm3 (0.1-0.6); Monocytes Percent Auto 3.9 % (2.6-8.5); Neutrophils Absolute Auto 16.8 K/mm3 (1.3-6.7); Neutrophils Percent Auto 89.1 % (45.5-73.1); Nucleated Red Blood Cells Perc 0.2 % (0.0-0.2); Platelet Count Result 209 k/mm3 (150-375); Red Blood Count 2.75 M/mm3 (4.2-5.4); Red Cell Distribution Width 14.5 % (11.5-14.5); White Blood Count 18.8 K/mm3 (4.5-10.0)
[2020-03-21 04:55] LABS: Alanine Aminotransferase 10 U/L (4-35); Alkaline Phosphatase 86 U/L (38-126); Anion Gap 12.3 mmol/L (7-16); Aspartate Amino Transferase 29 U/L (14-36); Bilirubin,Total 0.6 mg/dL (0.2-1.3); Blood Urea Nitrogen 49 mg/dL (7-17); CRP 25.9 mg/dL (<1.0); Calcium 8.7 mg/dL (8.4-10.2); Carbon Dioxide 32 mmol/L (22-30); Chloride 93 mmol/L (98-107); Estimated CRCL calculation 39 ml/min; Estimated Glomerular Filt Rate 27; Glucose 96 mg/dL (65-105); Lactate Dehydrogenase 602 U/L (313-618); Magnesium 1.7 mg/dL (1.6-2.3); Potassium 5.3 mmol/L (3.4-5.0); Sodium 132 mmol/L (137-145)
--- NOTE | 2020-03-21 07:51 | PM.CNCAR ---
Assessment and Plan Assessment and plan (1) Non-ST elevated myocardial infarction (non-STEMI): Code(s): I21.4 - Non-ST elevation (NSTEMI) myocardial infarction Status: Acute Assessment and Plan: Her troponin was mildly elevated during her recent admission with sepsis and is elevated again this admission 0.2-->0.9 No ischemic changes on EKG. She did not report chest pain on admission before got intubated Her trop elevation is Likely due to type II myocardial infarction from increased demand from underlying resp failure with COVID She had echo on 02/21 with normal LV function and no regional wall motion changes Will follow troponin to peak. She is already anticoagulated with eliquis for h/o DVT. Would continue that.Would also start ASA. She would not be good candidate for ischemic evaluation at current time with her acute illness and even probably later on if she has recovery given her CKD ,other comorbidites and poor functional status (2) CHF (congestive heart failure): Qualifiers: Heart failure chronicity: unspecified Heart failure type: unspecified Qualified Code(s): I50.9 - Heart failure, unspecified Code(s): I50.9 - Heart failure, unspecified Status: Acute Assessment and Plan: Her volume status is difficult to assess due to bod habitus. She is febrile with likely insensible water loss wit that. Her creatinine went up to 1.9 from 1.5 yesterday after she received Lasix in ER. Would hold off further diuresing unless she becomes difficult to oxygenate on the vent. (3) Sinus tachycardia: Code(s): R00.0 - Tachycardia, unspecified Status: Acute Assessment and Plan: Multifactorial with fever and resp failure. No arrhythmia noted. (4) COVID-19: Code(s): U07.1 - COVID-19 Status: Acute Assessment and Plan: She was intubated this am 03/21/20 Management per primary team (5) Morbid obesity: Code(s): E66.01 - Morbid (severe) obesity due to excess calories Status: Acute (6) History of DVT (deep vein thrombosis): Code(s): Z86.718 - Personal history of other venous thrombosis and embolism Status: Acute (7) Diabetes mellitus: Code(s): E11.9 - Type 2 diabetes mellitus without complications Status: Acute History of Present Illness History of Present Illness Consult date/time: 03/21/20 07:51 60-year-old female with morbid obesity, NEVIN, CKD, rheumatoid arthritis, Diastolic CHF, DVT on Eliquis who presents with SOB and fever She was recently treated for UTI and discharged to rehab. She presented now with SOB and Cough as well as fever. She tested positive for COVID. Her oxygen requirements were initially close to baseline but this am oxygen saturation dropped and she was just intubated. History per chart as patient is on the vent. She has no cardiac history except for HFpEF with no history of arrhythmia or known CAD. During her recent admission earlier this month with sepsis she had mild trop elevation that peaked at 0.9. She had 2D echo that revealed normal LV systolic function, no significant valvular disease and mild pulmonary HTN. Her trop elevation was felt to be due to increased demand from underlying sepsis. She did not undergo ischemic evaluation due to h/o CKD. Currently her troponin is elevated again 0.2 then 0.9. No report of chest pain. EKG shows sinus tachycardia with no ischemic changes Review of Systems Reason For Visit: Shortness of breath. Review of Systems Review of Systems: ROS unobtainable: Yes unobtainable due to endotracheal tube PMFSH Past Medical History Medical History (Updated 03/21/20 @ 08:17 by Rozina Stevens MD) Anemia Chronic anticoagulation For treatment of left lower extremity DVT. Chronic respiratory failure with hypoxia Deep venous thrombosis Left lower extremity DVT in 2017 following complicated bowel surgery with V/Q scan suggestive of intermediate probability for
[2020-03-21] MEDS: SODIUM CHLORIDE 0.9% IV 500 ML 999 ML IV CONT ×3 (08:59→17:45)
[2020-03-21] MEDS: DEXTROSE 50% 25 GM/50 ML SYRINGE IV PUSH (09:00)
[2020-03-21] MEDS: NOREPINEPHRINE 8 MG/D5W 250 ML 8 MG/250 ML BAG 7.5 MG IV CONT (09:09)
[2020-03-21] MEDS: LINEZOLID 600 MG/300 ML 600 MG/300 ML SOLN 300 MG IVPB (09:10)
[2020-03-21] MEDS: LORATADINE 10 MG TABLET PO (09:11)
[2020-03-21] MEDS: ASCORBIC ACID 500 MG TABLET PO (09:11)
[2020-03-21] MEDS: ACIDOPHILUS/BULGARICUS CHEWABLE TABLET 2 TABLET PO (09:11)
[2020-03-21] MEDS: calcitrioL 0.25 MCG CAPSULE PO (09:11)
[2020-03-21] MEDS: predniSONE 10 MG TABLET PO (09:12)
[2020-03-21] MEDS: APIXABAN 5 MG TABLET PO ×2 (09:12→19:50)
[2020-03-21] MEDS: CYANOCOBALAMIN 500 MCG TABLET PO (09:12)
[2020-03-21] MEDS: HYDROXYCHLOROQUINE SULFATE 200 MG TABLET PO (09:12)
[2020-03-21] MEDS: MAGNESIUM OXIDE 400 MG TABLET PO (09:12)
[2020-03-21] MEDS: PANTOPRAZOLE 40 MG TABLET PO (09:12)
[2020-03-21] MEDS: LEVOTHYROXINE SODIUM 150 MCG TABLET PO (09:12)
[2020-03-21] MEDS: POLYSACCHARIDE IRON COMPLEX 150 MG CAPSULE PO (09:12)
[2020-03-21] MEDS: GABAPENTIN 300 MG CAPSULE PO ×2 (09:13→19:50)
[2020-03-21 09:33] LABS: Alveolar/Arterial O2 Gradient 310.4 mmHg; Base Excess ABG 3.3 mEq/l (+/-2.0); Fractional Inspired Oxygen 80 %; HCO3 ABG 28.4 mEq/l (22.0-26.0); Oxygen Content ABG 11.4 %vol (16.0-22.0); Oxygen Saturation ABG 99.4 % (95.0-100.0); Oxyhemoglobin 97.7 % THb (90.0-100.0); PCO2 ABG 46.4 mmHg (35.0-45.0); PO2 ABG 211.3 mmHg (80.0-100.0); PO2 FiO2 Ratio Arterial Blood 2.64 %; pH ABG 7.405 (7.350-7.450)
[2020-03-21 09:36] LABS: Total Hemoglobin 7.9 g/dL (12.0-18.0)
[2020-03-21 09:37] LABS: Arterial Blood Gas Ventilator rate 20 /MIN; Device VENTILATOR; Modified Allen's Test Pass; Site Drawn RIGHT RADIAL
[2020-03-21 09:38] LABS: Arterial Blood Gas PEEP 8 cmH2O; Arterial Blood Gas Tidal Volume 340 ml; Arterial Blood Gas Vent Mode ASSIST CONTROL
[2020-03-21 09:49] LABS: Glucose Point of Care 65 (65-105)
[2020-03-21 09:49] LABS: Glucose Point of Care 107 (65-105)
[2020-03-21 11:44] LABS: Glucose Point of Care 97 (65-105)
--- NOTE | 2020-03-21 12:15 | WPDCNINT ---
Assessment and Plan Assessment and plan (1) Acute and chronic respiratory failure: Qualifiers: Respiratory failure complication: unspecified whether with hypoxia or hypercapnia Qualified Code(s): J96.20 - Acute and chronic respiratory failure, unspecified whether with hypoxia or hypercapnia Code(s): J96.20 - Acute and chronic respiratory failure, unspecified whether with hypoxia or hypercapnia Status: Acute Assessment and Plan: patient with positive COVID-19, presented to the ED with increasing shortness breath, diffuse lung disease on chest x-ray. - Desaturated on 03/20, agonal breathing, almost unresponsive, was intubated pending respiratory failure - patient on CMV mode of ventilation, the% FiO2 and peep of 8 - continue vancomycin and imipenem - sedated with fentanyl Versed infusion, maintain RASS of 0 to -2, daily sedation vacation - continue bronchodilators (2) COVID-19: Code(s): U07.1 - COVID-19 Status: Acute Assessment and Plan: patient was test is positive for COVID-[place] at the [place] [facility] has been swabbed here at [facility] - continue droplet, airborne, contact isolation - ferritin and LDH are within normal limits, elevated CRP - starting patient on Remdesivir and dexamethasone - will continue monitor inflammatory markers (3) Septic shock: Code(s): A41.9 - Sepsis, unspecified organism; R65.21 - Severe sepsis with septic shock Status: Acute Assessment and Plan: septic shock likely related to pneumonia, UTI, positive pressure ventilation - patient was given the L IV fluid bolus, central line was inserted and started on Levophed. 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 insulin use: without moth exterminator use Diabetes mellitus complication status: without complication Qualified Code(s): E11.9 - Type 2 diabetes mellitus without complications Code(s): E11.9 - Type 2 diabetes mellitus without complications Status: Acute Assessment and Plan: recent hemoglobin A1c was 5.4 - continue Accu-Cheks and sliding scale insulin (5) Stage 3 chronic kidney disease: Code(s): N18.3 - Chronic kidney disease, stage 3 (moderate) Status: Acute Assessment and Plan: patient with stage 3 chronic kidney disease with baseline creatinine between 1.5-2.0 - continue to monitor urine output, renal function electrolytes (6) Diastolic CHF: Code(s): I50.30 - Unspecified diastolic (congestive) heart failure Status: Acute Assessment and Plan: history of diastolic heart failure - patient received Lasix and Bumex in the ER - will hold diuresis as patient is hypotensive on pressors - echocardiogram on 02/22/2020 with normal LV function and no regional wall motion changes, grade 1 diastolic dysfunction (7) Rheumatoid arthritis: Code(s): M06.9 - Rheumatoid arthritis, unspecified Status: Acute Assessment and Plan: patient takes hydroxychloroquine and prednisone at home, will hold. (8) VRE (vancomycin-resistant Enterococci) infection: Code(s): A49.1 - Streptococcal infection, unspecified site; Z16.21 - Resistance to vancomycin Status: Acute Assessment and Plan: Patient with VRE on linezolid which she was supposed to get from 03/20/2020 to 03/30/2020 for her VRE UTI - will have Infectious Disease follow the patient (9) History of DVT (deep vein thrombosis): Code(s): Z86.718 - Personal history of other venous thrombosis and embolism Status: Acute Assessment and Plan: on Eliquis at home will continue (10) Non-ST elevated myocardial infarction (non-STEMI): Code(s): I21.4 - Non-ST elevation (NSTEMI) myocardial infarction Status:
[2020-03-21] MEDS: DEXAMETHASONE SOD PHOS INJ 4 MG/ML VIAL 6 MG IV PUSH (13:11)
--- NOTE | 2020-03-21 13:26 | WPDPROCEDUR ---
Procedures Intubation Intubation Date: 03/21/20 A pre-procedural Time-Out was completed immediately before starting the procedure and confirmed: Patient Identification, Site, Procedure, Patient Position and the Availability of Requisite Equipment: Yes Sedative: etomidate Paralytic: rocuronium Laryngoscope: fiber optic video scope Assist device used: fiber optic device ET tube size: 7.5 Tube secured depth (cm): 23 Tube secured location: lips Tube placement confirmation: visualized tube passing through cords, equal breath sounds bilaterally, no breath sounds over epigastrium and confirmation by capnometry Patient tolerated procedure: well and no complications Intubation complications: none Additional comments: After obtaining consent from the POA and explaining the rationale for intubation. it was decided to go ahead and intubate the patient. The patient was lying in the supine position. Preoxygenation via BVM was provided for a minimum of 3 minutes. The patient had continuous cardiac as well as pulse oximetry monitoring during the procedure. Rapid sequence induction was provided by administration of Etomidate and rocuronium. A Glidescope blade 4 was used to directly visualize the vocal cords. A 7.5 mm endotracheal tube was visualized advancing between the cords to a level of 23 cm at the lip. The stylette was then removed. Tube placement was also noted by fogging in the tube, equal and bilateral breath sounds, no sounds over the epigastrium, and end-tidal colorimetric monitoring. The cuff was then inflated with 10 ml of air and the tube secured using a commercially available device. A good pulse oximetry wave form was seen on the monitor throughout the procedure. The patient was then connected to the ventilator at a tidal volume of 340 ml; rate of 20; FiO2 of 80%; and PEEP of 8. A portable chest x-ray has been ordered for placement. Continued sedation will be provided by Fentanyl and Versed continuous infusion titrated to a RASS of -2. The patient tolerated the procedure well.
--- NOTE | 2020-03-21 13:28 | WPDPROCEDUR ---
Procedures Central Line Placement Right IJ: Central Line Date: 03/21/20 Discussed w/ the patient/family/POA,the placement of a central venous catheter, including its clinical necessity/indication & associated potential risks, benifits and alternatives.: Yes The patient/family/POA understand(s) and acknowledge(s) the need to proceed with central venous catheter insertion as an important element of the patient's clinical management.: Yes Time Out Performed: Yes Patient Position: trendelenburg Patient placed on monitor/pulse ox: Yes Provider Prep: mask, sterile gown, sterile gloves, Max. sterile barrier precautions and hand hygiene with conventional soap/water or alcohol based hand rub Central line prep: 2% Chlorhexidine scrub and sterile full body sheet applied Local anesthesia used: lidocaine 1% Amount of anesthesia used (ml): 3 Sterile US Technique with sterile gel/sterile probe covers: Yes Central line lumen inserted: single and triple Martiniquais: 16 Length (cm): 16 Depth of Insertion (cm): 16 Post procedure: sutured in place, good blood return, all ports aspirated, flushed, capped, tegaderm, hemostatic disc, antimicrobial disc and aseptic technique maintained throughout procedure Post procedure x-ray: tip of catheter in good position and no pneumothorax seen Patient tolerated procedure: well Complications: none
[2020-03-21] MEDS: REMDESIVIR 200 MG/NS 250 ML 200 MG/250 ML BAG 250 MG IVPB (13:30)
[2020-03-21 14:17] LABS: Lactic Acid Reflex 1.1 mmol/L (0.7-2.1)
[2020-03-21 14:41] LABS: SARS-CoV-2 RNA PCR Negative
[2020-03-21] MEDS: PANTOPRAZOLE SODIUM IV 40 MG VIAL IV PUSH (14:47)
--- NOTE | 2020-03-21 15:07 | P.PCNBED_ITS ---
Procedures Central Line Placement Right IJ: Central Line Date: 03/21/20 Discussed w/ the patient/family/POA,the placement of a central venous catheter, including its clinical necessity/indication & associated potential risks, benifits and alternatives.: Yes The patient/family/POA understand(s) and acknowledge(s) the need to proceed with central venous catheter insertion as an important element of the patient's clinical management.: Yes Time Out Performed: Yes Patient Position: supine Patient placed on monitor/pulse ox: Yes Provider Prep: mask, sterile gown, sterile gloves, Max. sterile barrier precautions, cap and hand hygiene with conventional soap/water or alcohol based hand rub Central line prep: 2% Chlorhexidine scrub Local anesthesia used: lidocaine 1% Sterile US Technique with sterile gel/sterile probe covers: Yes Central line lumen inserted: single Djiboutian: 16 Length (cm): 16 Depth of Insertion (cm): 16 Post procedure: sutured in place, good blood return, all ports aspirated, flushed, capped, tegaderm, hemostatic disc, antimicrobial disc and aseptic technique maintained throughout procedure Post procedure x-ray: tip of catheter in good position and no pneumothorax seen Patient tolerated procedure: well and no complications Complications: none
--- NOTE | 2020-03-21 16:01 | WPDINFPN2 ---
Progress Note: A&P Assessment and Plan (1) COVID-19: Code(s): U07.1 - COVID-19 Status: Acute Assessment and Plan: 1. CoVid 19 infection causing viral pneumonia 2. Multiple allergies 3. Asymptomatic bacteriuria 4. Respiratory failure REC Remdesivir #1 / 5, and dexamethasone # / . Stop antibacterials. Subjective Date/time seen: 03/21/20 16:01 Objective Data Vital Signs Vital Signs: Vital Signs - 24 hr 03/20/20 18:00 03/20/20 20:00 03/20/20 20:20 Temperature 39.0 C H 39.0 C H Pulse Rate 120 H 132 H Respiratory Rate 26 H Blood Pressure 160/71 H Pulse Oximetry 93 03/20/20 22:00 03/20/20 23:54 03/21/20 00:00 Temperature 37.9 C H Pulse Rate 118 H 102 H 100 Respiratory Rate 31 H 31 H Blood Pressure 107/56 L Pulse Oximetry 100 100 03/21/20 02:00 03/21/20 04:00 03/21/20 06:00 Temperature 37.9 C H Pulse Rate 98 115 H 113 H Respiratory Rate 33 H Blood Pressure 118/94 H Pulse Oximetry 100 03/21/20 08:00 03/21/20 08:20 03/21/20 09:05 Temperature 38.4 C H Pulse Rate 100 98 Respiratory Rate 20 Blood Pressure Pulse Oximetry 100 03/21/20 09:07 03/21/20 09:09 03/21/20 09:14 Temperature 38.4 C H Pulse Rate 97 101 H Respiratory Rate 18 Blood Pressure 74/41 L Pulse Oximetry 03/21/20 09:16 03/21/20 09:20 03/21/20 09:25 Temperature 38.4 C H Pulse Rate 102 H 102 H 104 H Respiratory Rate 18 18 Blood Pressure 74/47 L 82/69 L Pulse Oximetry 100 100 03/21/20 09:33 03/21/20 09:44 03/21/20 10:00 Temperature Pulse Rate 105 H 108 H 108 H Respiratory Rate Blood Pressure 84/51 L 94/47 L Pulse Oximetry 03/21/20 10:14 03/21/20 10:44 03/21/20 11:20 Temperature Pulse Rate 109 H 90 91 Respiratory Rate 20 20 Blood Pressure 95/50 L Pulse Oximetry 100 99 03/21/20 11:34 03/21/20 11:35 03/21/20 11:36 Temperature Pulse Rate 87 88 88 Respiratory Rate 20 20 Blood Pressure 115/54 L Pulse Oximetry 99 03/21/20 11:54 03/21/20 12:00 03/21/20 12:15 Temperature 38.3 C H Pulse Rate 87 84 86 Respiratory Rate 20 Blood Pressure 115/61 107/55 L 115/58 L Pulse Oximetry 100 03/21/20 13:00 03/21/20 13:15 03/21/20 13:30 Temperature Pulse Rate 83 84 84 Respiratory Rate Blood Pressure 123/58 L 123/61 119/53 L Pulse Oximetry 03/21/20 13:45 03/21/20 14:00 03/21/20 14:10 Temperature Pulse Rate 83 87 88 Respiratory Rate 18 Blood Pressure 109/67 122/58 L Pulse Oximetry 100 100 03/21/20 14:16 03/21/20 14:30 03/21/20 14:44 Temperature Pulse Rate 88 87 87 Respiratory Rate Blood Pressure 125/57 L 123/60 131/62 Pulse Oximetry 03/21/20 14:49 03/21/20 15:00 03/21/20 15:15 Temperature Pulse Rate 86 88 87 Respiratory Rate 20 Blood Pressure 110/57 L 120/62 Pulse Oximetry 03/21/20 15:30 03/21/20 15:43 03/21/20 15:44 Temperature Pulse Rate 84 86 86 Respiratory Rate 20 Blood Pressure 129/64 127/65 Pulse Oximetry 92 Intake/Output Intake/Output: Intake & Output 03/18/20 03/19/20 03/20/20 03/21/20 23:59 23:59 23:59 23:59 Intake Total 550 2350 Output Total 100 330 Balance 450 2020 Meds/Results Medications: Active Medications Generic Name Dose Route Start Last Admin Trade Name Freq PRN Reason Stop Dose Admin Albuterol 1 puff 03/20/20 19:35 Proventil Hfa INHALATION QIDRT PRN Shortness Of Breath Or Wheezing Apixaban 5 mg 03/20/20 21:00 03/21/20 09:12 Eliquis PO 5 mg Q12HR BONNIE Administration Ascorbic Acid 500 mg 03/21/20 09:00 03/21/20 09:11 Vitamin C PO 500 mg DAILY BONNIE Administration Bisacodyl 5 mg 03/20/20 19:35 Dulcolax Tab PO HS PRN Constipation Budesonide/Formoterol Fumarate 2 puff 03/20/20 20:00 03/21/20 08:00 Symbicort 160-4.5 Mcg (*Sp) Inhaler INHALATION Not Given Q12HRT [facility] Calcitriol 0.25 mcg 03/21/20 09:00 03/21/20 09:11 Rocaltrol PO
--- NOTE | 2020-03-21 16:07 | P.PNIM_ITS ---
Progress Note: A&P Assessment and Plan (1) COVID-19: Code(s): U07.1 - COVID-19 Status: Acute Assessment and Plan: high risk secondary to immunosuppression and chronic illness (2) Acute and chronic respiratory failure: Qualifiers: Respiratory failure complication: unspecified whether with hypoxia or hypercapnia Qualified Code(s): J96.20 - Acute and chronic respiratory failure, unspecified whether with hypoxia or hypercapnia Code(s): J96.20 - Acute and chronic respiratory failure, unspecified whether with hypoxia or hypercapnia Status: Acute Assessment and Plan: * pt was emergently intubated * vent management by icu attending (3) Rheumatoid arthritis: Code(s): M06.9 - Rheumatoid arthritis, unspecified Status: Acute Assessment and Plan: * Hold sulfasalazine . (4) Obstructive sleep apnea on CPAP: Code(s): G47.33 - Obstructive sleep apnea (adult) (pediatric); Z99.89 - Dependence on other enabling machines and devices Status: Acute Assessment and Plan: * Unable to use CPAP as she is COVID positive (5) Stage 3 chronic kidney disease: Code(s): N18.3 - Chronic kidney disease, stage 3 (moderate) Status: Acute Assessment and Plan: * Creatinine is 1.9 (6) Diastolic CHF: Code(s): I50.30 - Unspecified diastolic (congestive) heart failure Status: Acute Assessment and Plan: * resume p.o. Lasix in a.m. (7) Chronic anticoagulation: Code(s): Z79.01 - terminal superintendent (current) use of anticoagulants Status: Acute Assessment and Plan: * Continue apixaban. (8) Type 2 diabetes mellitus: Code(s): E11.9 - Type 2 diabetes mellitus without complications Status: Acute Assessment and Plan: * Recent hemoglobin A1c was 5.4%. * Initiate sliding scale insulin, Accu-Cheks, and hypoglycemic protocol. (9) Hypertension: Code(s): I10 - Essential (primary) hypertension Status: Acute Assessment and Plan: * Blood pressures were reviewed and they are stable. * Her antihypertensives will be reviewed and resumed as appropriate. * Monitor blood pressures daily. (10) VRE (vancomycin-resistant Enterococci) infection: Code(s): A49.1 - Streptococcal infection, unspecified site; Z16.21 - Resistance to vancomycin Status: Acute Assessment and Plan: linezolid stopped by id (11) Sepsis: Code(s): A41.9 - Sepsis, unspecified organism Status: Acute Assessment and Plan: * Present on admission supported by fever, tachycardia, and leukocytosis. * sepsis secondary to covid pneumonia * treat with iv remdesivir as per ID Subjective Date/time seen: 03/21/20 16:07 Interval history: Chris is a chronically ill 60-year-old female with multiple medical problems to include morbid obesity, obstructive sl
--- NOTE | 2020-03-21 16:07 | PM.IMPN ---
Progress Note: A&P Assessment and Plan (1) COVID-19: Code(s): U07.1 - COVID-19 Status: Acute Assessment and Plan: high risk secondary to immunosuppression and chronic illness (2) Acute and chronic respiratory failure: Qualifiers: Respiratory failure complication: unspecified whether with hypoxia or hypercapnia Qualified Code(s): J96.20 - Acute and chronic respiratory failure, unspecified whether with hypoxia or hypercapnia Code(s): J96.20 - Acute and chronic respiratory failure, unspecified whether with hypoxia or hypercapnia Status: Acute Assessment and Plan: pt was emergently intubated vent management by icu attending (3) Rheumatoid arthritis: Code(s): M06.9 - Rheumatoid arthritis, unspecified Status: Acute Assessment and Plan: Hold sulfasalazine . (4) Obstructive sleep apnea on CPAP: Code(s): G47.33 - Obstructive sleep apnea (adult) (pediatric); Z99.89 - Dependence on other enabling machines and devices Status: Acute Assessment and Plan: Unable to use CPAP as she is COVID positive (5) Stage 3 chronic kidney disease: Code(s): N18.3 - Chronic kidney disease, stage 3 (moderate) Status: Acute Assessment and Plan: Creatinine is 1.9 (6) Diastolic CHF: Code(s): I50.30 - Unspecified diastolic (congestive) heart failure Status: Acute Assessment and Plan: resume p.o. Lasix in a.m. (7) Chronic anticoagulation: Code(s): Z79.01 - shelter (current) use of anticoagulants Status: Acute Assessment and Plan: Continue apixaban. (8) Type 2 diabetes mellitus: Code(s): E11.9 - Type 2 diabetes mellitus without complications Status: Acute Assessment and Plan: Recent hemoglobin A1c was 5.4%. Initiate sliding scale insulin, Accu-Cheks, and hypoglycemic protocol. (9) Hypertension: Code(s): I10 - Essential (primary) hypertension Status: Acute Assessment and Plan: Blood pressures were reviewed and they are stable. Her antihypertensives will be reviewed and resumed as appropriate. Monitor blood pressures daily. (10) VRE (vancomycin-resistant Enterococci) infection: Code(s): A49.1 - Streptococcal infection, unspecified site; Z16.21 - Resistance to vancomycin Status: Acute Assessment and Plan: linezolid stopped by id (11) Sepsis: Code(s): A41.9 - Sepsis, unspecified organism Status: Acute Assessment and Plan: Present on admission supported by fever, tachycardia, and leukocytosis. sepsis secondary to covid pneumonia treat with iv remdesivir as per ID Subjective Date/time seen: 03/21/20 16:07 Interval history: Chris is a chronically ill 60-year-old female with multiple medical problems to include morbid obesity, obstructive sleep apnea, chronic kidney disease, rheumatoid arthritis on immunosuppressants, chronic stasis dermatitis, home he type 2 diabetes mellitus, VRE UTI, from [facility] for evaluation of shortness of breath. Pt is covid positive was intubated today for respiratory distress in icu. Seen by ICU MD and ID MD Review of Systems Review of Systems: ROS unobtainable: Yes unobtainable due to endotracheal tube Exam Narrative: Exam Narrative: pt is [facility]
[2020-03-21 17:05] LABS: Glucose Point of Care 131 (65-105)
[2020-03-21] MEDS: AMIODARONE 150 MG/D5W 100 ML 150 MG/100 ML BAG 600 MG IV CONT (18:20)
[2020-03-21] MEDS: AMIODARONE 360 MG/D5W 200 ML 360 MG/200 ML BAG 33.3 MG IV CONT (18:21)
[2020-03-21] MEDS: ACETAMINOPHEN ELIXIR 325 MG/10.15 ML UDC 650 MG PO (19:50)
[2020-03-21] MEDS: EZETIMIBE 10 MG TABLET PO (19:50)
--- NOTE | 2020-03-21 23:15 | CONS_ITS ---
DATE OF CONSULTATION: 03/21/2020 REASON FOR CONSULTATION: COVID infection. HISTORY OF PRESENT ILLNESS: The patient is a 60-year-old female, who cannot provide a history to me as she was intubated a short while ago and is on sedation. She was here in the hospital at the end of January with acute UTI with bacteremia revealing E. coli, which was relatively susceptible except to quinolones and ampicillin. She was treated appropriately. She is a resident of a long term and while there, apparently had VRE isolated and was begun on linezolid at some point in the recent days. She was brought to the emergency room yesterday morning, however, with 2 days of increasing dyspnea. She has been given while here linezolid as well as single dose of clindamycin, nitrofurantoin, and imipenem. After her COVID assay returned, she has now been started on Remdesivir and dexamethasone. She has also had placement of a right IJ triple-lumen catheter along with the ET tube, Paz catheter presently in place. No fevers at her long term apparently. ALLERGIES: MULTIPLE INCLUDING QUINOLONES, CEPHALOSPORINS, PIPERACILLIN, TAZOBACTAM, SULFA, AND ERYTHROMYCIN. PIPERACILLIN CAUSED A HEADACHE AND VANCOMYCIN CAUSED A RASH. FURTHER DETAILS NOT AVAILABLE. PRESENT MEDICATIONS: At home, she is on 1. Hydroxychloroquine. 2. Prednisone 10 mg daily. 3. Sulfasalazine 1 g b.i.d. PAST MEDICAL HISTORY: Anemia, chronic anticoagulation, chronic respiratory failure, obesity, previous DVT, diastolic heart failure, GERD, gout, hypertension, NEVIN, osteoporosis, rheumatoid arthritis, stage 3 chronic renal insufficiency, type 2 diabetes mellitus, uterine cancer with hysterectomy and bowel resection, further details not available. FAMILY HISTORY: Diabetes, cancer, and hypertension. 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 No family at the bedside. REVIEW OF SYSTEMS: A 14-point review attempted, not obtainable from the patient due to intubated status; otherwise, per record and I reviewed. PHYSICAL EXAMINATION: GENERAL: This is a female, who appears her actual age, sedated, and appears ill. VITAL SIGNS: On arrival yesterday morning 37.7, her temperature nichelle up to 39.0 later in the day. Currently, afebrile, 86, 20, 37.2, 92%, 123/64. SKIN: No generalized rashes. Warm and dry. EENT: Conjunctivae are normal. Pupils equal and round. The oral mucosa appears normal, though the exam compromised by the ET tube. NECK: She has abundant fat, which obscures contours. There is no meningismus. LUNGS: Diminished breath sounds, vesicular, clear to percussion. CHEST: Equal expansion. Normal AP diameter. Right IJ triple-lumen in place. CARDIAC: Very soft S1, S2. Regular rate and rhythm. No murmurs or rubs. ABDOMEN: Massive obesity. No tenderness. Nondistended. Normal bowel sounds. EXTREMITIES: No clubbing, cyanosis, or edema. LABORATORY DATA: Her COVID assay from her long term 1 day before admission reported as positive. It was repeated here yesterday and results are pending. Urinalysis, multiple abnormalities, which are reviewed. BUN 49, creatinine 1.9, estimated GFR 27. CRP 26, albumin 3.0. Liver function tests with elevated LDH. Ferritin 202, which is normal. Blood gases this morning 7.41, 46, 211, and on arrival yesterday, PCO2 is 51, PO2 is 81. White count 18.8 up from 15.4, yesterday was 12.6 on 02/27/2020. Hemoglobin 8.3, platelets 209. RADIOLOGICAL DATA: I personally reviewed her chest x-ray. She has rotation, which compromises full interpretation. She does have mild interstitial infiltrates bilaterally. I also reviewed the radiologist's reading. Blood cultures, no growth after short incubation. Urine culture with Gram-negative jluis. A
[2020-03-22] VITALS (37 sets, daily range): BP systolic 104–159; BP diastolic 56–80; PULSE 69–92; RESP 20–26; TEMP 36.3–38.4; O2SAT 96–100; BMI 55.4
[2020-03-22] MEDS: AMIODARONE 360 MG/D5W 200 ML 360 MG/200 ML BAG 16.7 MG IV CONT ×3 (00:18→23:14)
[2020-03-22 00:27] LABS: Glucose Point of Care 128 (65-105)
[2020-03-22 04:04] LABS: Alveolar/Arterial O2 Gradient 135.2 mmHg; Carboxyhemoglobin 0.9 % THb (0-2.0); Fractional Inspired Oxygen 35 %; Methemoglobin ABG 0.3 %THb (0-1.5); Oxygen Content ABG 10.8 %vol (16.0-22.0); Oxyhemoglobin 92.5 % THb (90.0-100.0); PCO2 ABG 37.6 mmHg (35.0-45.0); PO2 ABG 70.6 mmHg (80.0-100.0); PO2 FiO2 Ratio Arterial Blood 2.02 %; Reduced Hemoglobin 6.3 %THb (0-5.0); Total Hemoglobin 8.2 g/dL (12.0-18.0); pH ABG 7.457 (7.350-7.450)
[2020-03-22 04:06] LABS: Arterial Blood Gas PEEP 8 cmH2O; Arterial Blood Gas Tidal Volume 340 ml; Arterial Blood Gas Vent Mode CMV; Arterial Blood Gas Ventilator rate 20 /MIN; Device VENTILATOR; Modified Allen's Test Unable to perform; Site Drawn RIGHT RADIAL
[2020-03-22 05:00] LABS: Hematocrit 23.8 % (37.0-47.0); Hemoglobin 7.3 g/dL (12.0-15.0); Mean Corpuscular HGB Conc 30.7 g/dl (32-36); Mean Corpuscular Hemoglobin 30.4 pg (26-34); Mean Corpuscular Volume 99.2 fl (80-100); Mean Platelet Volume 9.7 fl (7.4-10.4); Platelet Count Result 132 k/mm3 (150-375); Red Cell Distribution Width 14.5 % (11.5-14.5); White Blood Count 13.4 K/mm3 (4.5-10.0)
[2020-03-22] MEDS: LEVOTHYROXINE SODIUM 150 MCG TABLET PO (05:12)
[2020-03-22 05:22] LABS: Lactic Acid 1.1 mmol/L (0.7-2.1)
[2020-03-22 05:26] LABS: Alanine Aminotransferase 10 U/L (4-35); Albumin Level 2.5 g/dL (3.5-5.1); Alkaline Phosphatase 93 U/L (38-126); Anion Gap 13.8 mmol/L (7-16); Aspartate Amino Transferase 24 U/L (14-36); Bilirubin,Total 0.3 mg/dL (0.2-1.3); Blood Urea Nitrogen 51 mg/dL (7-17); Calcium 8.1 mg/dL (8.4-10.2); Carbon Dioxide 29 mmol/L (22-30); Chloride 93 mmol/L (98-107); Estimated CRCL calculation 27 ml/min; Estimated Glomerular Filt Rate 17; Glucose 105 mg/dL (65-105); Lactate Dehydrogenase 383 U/L (313-618); Magnesium 1.7 mg/dL (1.6-2.3); Phosphorus 4.1 mg/dL (2.5-4.5); Potassium 4.8 mmol/L (3.4-5.0); Sodium 131 mmol/L (137-145)
[2020-03-22 05:27] LABS: D Dimer 2.26 ug/mL (<0.48)
[2020-03-22 05:55] LABS: CRP > 45.0 mg/dL (<1.0)
[2020-03-22] MEDS: DEXAMETHASONE SOD PHOS INJ 4 MG/ML VIAL 6 MG IV PUSH (08:45)
[2020-03-22] MEDS: ACIDOPHILUS/BULGARICUS CHEWABLE TABLET 2 TABLET PO (08:45)
[2020-03-22] MEDS: ASCORBIC ACID 500 MG TABLET PO (08:45)
[2020-03-22] MEDS: PANTOPRAZOLE SODIUM IV 40 MG VIAL IV PUSH (08:45)
[2020-03-22] MEDS: MAGNESIUM OXIDE 400 MG TABLET PO (08:46)
[2020-03-22] MEDS: CYANOCOBALAMIN 500 MCG TABLET PO (08:46)
[2020-03-22] MEDS: GABAPENTIN 300 MG CAPSULE PO ×2 (08:46→21:54)
[2020-03-22] MEDS: APIXABAN 5 MG TABLET PO ×2 (08:47→21:54)
[2020-03-22] MEDS: calcitrioL 0.25 MCG CAPSULE PO (08:48)
--- NOTE | 2020-03-22 09:22 | PM.CNNEP ---
Assessment and Plan Assessment and plan (1) Stage 3 chronic kidney disease: Code(s): N18.3 - Chronic kidney disease, stage 3 (moderate) Status: Acute Assessment and Plan: the patient has CKD stage 3. This could be from several things including hypertension, morbid obesity, and sleep apnea. Vascular disease is always and possibility as well. Her creatinine generally runs between 1.5 and 2. Occasionally it rises if she is sick. Because of her obesity it is difficult to know if the GFR is actually accurate as she may not have an average amount of muscle mass per kg total body weight. Once this is over we can get a 24hour urine to evaluate this. (2) Acute kidney injury: Code(s): N17.9 - Acute kidney failure, unspecified Status: Acute Assessment and Plan: The patient has acute kidney injury. Her creatinine was normal when she got here and nichelle as she has gotten sicker. She was given some fluids but the creatinine went up anyway. The patient has pneumonia on her chest x-ray which is being treated. She was COVID positive then COVID negative and this is being repeated as well so may have COVID pneumonia as well. The patient also has leukocytes in her urine and so may have a UTI as well. Sepsis is always a possibility as well. The patient has been on antibiotics recently and so could have allergic interstitial nephritis but I think this is unlikely as she does not have a trunk rash nor eosinophilia. Some sort of a glomerulonephritis is remotely possible because she does have rheumatoid arthritis and so is at risk for other autoimmune diseases. But this does not usually present this way, usually the blood pressure would be high, she would be retaining fluid. We will keep an eye on this aspect of hers condition however. Even if she had some sort of an on any immune disease we could not give strong immunosuppressive due to her infectious issues. Other causes including infiltrative disease and obstruction are possible as well. We will check urine electrolytes and eosinophils.Will get a renal ultrasound as well. Continue supportive care. (3) Acute and chronic respiratory failure: Qualifiers: Respiratory failure complication: unspecified whether with hypoxia or hypercapnia Qualified Code(s): J96.20 - Acute and chronic respiratory failure, unspecified whether with hypoxia or hypercapnia Code(s): J96.20 - Acute and chronic respiratory failure, unspecified whether with hypoxia or hypercapnia Status: Acute Assessment and Plan: The patient has chronic respiratory failure from sleep apnea and morbid obesity. She also has a history of reversible airways disease according to the chart. Now she has pulmonary infiltrates probably due to some infection. She is on the ventilator and getting supportive care. (4) COVID-19: Code(s): U07.1 - COVID-19 Status: Acute Assessment and Plan: Her 3rd test is pending. She is on isolation. (5) Septic shock: Code(s): A41.9 - Sepsis, unspecified organism; R65.21 - Severe sepsis with septic shock Status: Acute Assessment and Plan: Patient has cultures pending and is on antibiotics. (6) Non-ST elevated myocardial infarction (non-STEMI): Code(s): I21.4 - Non-ST elevation (NSTEMI) myocardial infarction Status: Acute Assessment and Plan: Troponins were positive. (7) History of DVT (deep vein thrombosis): Code(s): Z86.718 - Personal history of other venous thrombosis and embolism Status: Acute Assessment and Plan: Patient is on Eliquis (8) Rheumatoid arthritis: Code(s): M06.9 - Rheumatoid arthritis, unspecified Status: Acute Assessment and Plan: she gets Plaquenil and the solids in. (9) Hypertension: Code(s): I10 - Essential (primary) hypertension Status: Acute Assessment and Plan: Lucy
[2020-03-22 10:53] LABS: Add Urine Microscopic? YES; Appearance Urine Cloudy (Clear); Bacteria Urine Trace /hpf; Bilirubin Urine 1+ (Negative); Blood Urine 2+ (Negative); Color Urine Yellow (Yellow); Glucose Urine UA Negative (Negative); Ketones Urine Negative (Negative); Leukocyte Esterase Ur 3+ LEU/UL (NEGATIVE); Mucus Urine Rare /lpf; Nitrate Urine Negative (Negative); Protein Urine 1+ mg/dL (Negative); RBC Urine 51-75 /hpf (0-2); Specific Grav Ur 1.024 (1.001-1.035); Squamous Epithelial Cell Urine Few /hpf (Few); WBC Clumps Urine Present /HPF; WBC Urine >75 /hpf (0-3)
--- NOTE | 2020-03-22 11:21 | PCDIET ---
MD ordered to start tube feedings. Recommendation for Vital 1.5 at goal of 40mL/hr provided for total of 1320kcal, 59g protein and 672mL free water over 22 hours/day. Recommend continuing standard water flush of 30mL/hr every 4 hours. May consider addition of protein flushes over next few days, pending renal function.
[2020-03-22 11:25] LABS: Creatinine Urine 103.4 mg/dL; Total Protein Urine Random 23 mg/dL
[2020-03-22 11:25] LABS: Creatine Kinase 257 U/L (30-135)
[2020-03-22 11:46] LABS: Sodium Urine Random 18 meq/L
[2020-03-22 11:49] LABS: Glucose Point of Care 101 (65-105)
[2020-03-22] MEDS: REMDESIVIR 100 MG/NS 250 ML 100 MG/250 ML BAG 250 MG IVPB (11:52)
[2020-03-22] MEDS: PHARMACIST COMMUNICATION ORDER 1 EACH XX (11:53)
--- NOTE | 2020-03-22 12:22 | WPDINTPN ---
Progress Note: A&P Assessment and Plan (1) Acute and chronic respiratory failure: Qualifiers: Respiratory failure complication: unspecified whether with hypoxia or hypercapnia Qualified Code(s): J96.20 - Acute and chronic respiratory failure, unspecified whether with hypoxia or hypercapnia Code(s): J96.20 - Acute and chronic respiratory failure, unspecified whether with hypoxia or hypercapnia Status: Acute Assessment and Plan: patient with positive COVID-19, presented to the ED with increasing shortness breath, diffuse lung disease on chest x-ray. - Desaturated on 03/20, agonal breathing, almost unresponsive, was intubated pending respiratory failure - patient on CMV mode of ventilation, 35% FiO2 and peep of 8 - continue vancomycin and imipenem - sedated with fentanyl Versed infusion, maintain RASS of 0 to -2, daily sedation vacation - continue bronchodilators (2) COVID-19: Code(s): U07.1 - COVID-19 Status: Acute Assessment and Plan: patient was test is positive for COVID-19 at the sn[facility] - patient was swabbed for SARS-CoV-2 PCR in the ER on admission on 03/20/2020 and is negative. - Given her elevated inflammatory markers, will repeat SARS-CoV-2 PCR today. - continue droplet, airborne, contact isolation - Elevated ferritin, D-dimer and CRP. LDH within normal limits - started on Remdesivir and dexamethasone - will continue monitor inflammatory markers (3) Septic shock: Code(s): A41.9 - Sepsis, unspecified organism; R65.21 - Severe sepsis with septic shock Status: Acute Assessment and Plan: septic shock likely related to pneumonia, UTI, positive pressure ventilation - patient was given 1.5L IV fluid bolus on 03/21/2020, central line was inserted and started on Levophed. currently off Levophed - continue antibiotics as above - blood and urine cultures growing E coli . Patient has multiple allergies, will start renally dosed aztreonam today, 03/22/2020. 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: without mcfp use Diabetes mellitus complication status: without complication Qualified Code(s): E11.9 - Type 2 diabetes mellitus without complications Code(s): E11.9 - Type 2 diabetes mellitus without complications Status: Acute Assessment and Plan: recent hemoglobin A1c was 5.4 - continue Accu-Cheks and sliding scale insulin (5) Stage 3 chronic kidney disease: Code(s): N18.3 - Chronic kidney disease, stage 3 (moderate) Status: Acute Assessment and Plan: patient with stage 3 chronic kidney disease with baseline creatinine between 1.5-2.0 - continue to monitor urine output, renal function electrolytes - acute on chronic kidney disease, elevated creatinine this morning, nephrology has been consulted appreciated the evaluation recommendations - renal ultrasound shows normal kidn (6) Diastolic CHF: Code(s): I50.30 - Unspecified diastolic (congestive) heart failure Status: Acute Assessment and Plan: history of diastolic heart failure - patient received Lasix and Bumex in the ER - will hold diuresis as patient just came off pressors - echocardiogram on 02/22/2020 with normal LV function and no regional wall motion changes, grade 1 diastolic dysfunction (7) Rheumatoid arthritis: Code(s): M06.9 - Rheumatoid arthritis, unspecified Status: Acute Assessment and Plan: will hold hydroxychloroquine and prednisone (8) VRE (vancomycin-resistant Enterococci) infection: Code(s): A49.1 - Streptococcal infection, unspecified site; Z16.21 - Resistance to vancomycin Status: Acute Assessment and Plan: off linezolid per Infectious Disease - Appreciate infectious disease evaluation and recommendations (9) History of DVT (deep vein thromb
[2020-03-22] MEDS: ACETAMINOPHEN ELIXIR 325 MG/10.15 ML UDC 650 MG PO (12:58)
--- NOTE | 2020-03-22 13:47 | WPDINFPN2 ---
Progress Note: A&P Assessment and Plan (1) COVID-19: Code(s): U07.1 - COVID-19 Status: Acute Assessment and Plan: 1. CoVid 19 infection causing viral pneumonia, remains inutbated. Repeat swab is NR 2. Multiple allergies 3. Bacteriuria, no voiding symptoms, causing E coli bacteremia,suspect upper tract infection 4. Respiratory failure REC Remdesivir #2 / 5, and dexamethasone # 2 / 10. Aztreonam #1. Discussed. Redo swab, and if adequate collection is again NR then stop remdesivir and dexamethasone. Subjective Date/time seen: 03/22/20 13:47 Interval history: sedated Exam Narrative: Exam Narrative: t max 38.3 Const: General: no acute distress Neck: Neck: supple Resp: Effort & Inspection: normal respiratory effort Auscultation: clear to auscultation bilaterally and diminished lung sounds Cardio: Rate: regular rate Rhythm: regular rhythm Heart sounds: no murmurs GI: Inspection: non-distended GI Palp: Yes Soft to palpation and No Tenderness to palpation present (GI) Skin: General skin exam: normal color Rashes: rashes noted Objective Data Vital Signs Vital Signs: Vital Signs - 24 hr 03/21/20 14:00 03/21/20 14:10 03/21/20 14:16 Temperature Pulse Rate 87 88 88 Respiratory Rate 18 Blood Pressure 122/58 L 125/57 L Pulse Oximetry 100 100 03/21/20 14:30 03/21/20 14:44 03/21/20 14:49 Temperature Pulse Rate 87 87 86 Respiratory Rate 20 Blood Pressure 123/60 131/62 Pulse Oximetry 03/21/20 15:00 03/21/20 15:15 03/21/20 15:30 Temperature Pulse Rate 88 87 84 Respiratory Rate Blood Pressure 110/57 L 120/62 129/64 Pulse Oximetry 03/21/20 15:43 03/21/20 15:44 03/21/20 16:00 Temperature 37.2 C Pulse Rate 86 86 86 Respiratory Rate 20 20 Blood Pressure 127/65 123/64 Pulse Oximetry 92 92 03/21/20 17:30 03/21/20 17:56 03/21/20 17:58 Temperature Pulse Rate 90 133 H 138 H Respiratory Rate 20 Blood Pressure 126/59 L Pulse Oximetry 96 03/21/20 18:00 03/21/20 18:04 03/21/20 18:20 Temperature 38.2 C H 38.2 C H Pulse Rate 131 H 125 H Respiratory Rate 20 Blood Pressure 108/75 108/75 Pulse Oximetry 93 03/21/20 18:21 03/21/20 18:31 03/21/20 18:34 Temperature 38.2 C H Pulse Rate 126 H 129 H Respiratory Rate Blood Pressure 108/75 95/67 L Pulse Oximetry 03/21/20 19:45 03/21/20 19:50 03/21/20 19:58 Temperature 38.1 C H Pulse Rate 125 H 116 H Respiratory Rate 22 H Blood Pressure Pulse Oximetry 96 03/21/20 20:00 03/21/20 22:00 03/21/20 22:48 Temperature 38.1 C H Pulse Rate 82 76 74 Respiratory Rate 20 20 Blood Pressure 104/54 L 104/54 L Pulse Oximetry 97 97 97 03/21/20 22:53 03/21/20 22:54 03/22/20 00:00 Temperature 37.2 C Pulse Rate 74 74 72 Respiratory Rate 20 20 20 Blood Pressure 104/56 L Pulse Oximetry 98 03/22/20 00:18 03/22/20 02:00 03/22/20 02:03 Temperature Pulse Rate 73 72 72 Respiratory Rate 20 Blood Pressure 104/56 L 108/60 Pulse Oximetry 96 97 03/22/20 02:14 03/22/20 03:09 03/22/20 04:00 Temperature 37.1 C Pulse Rate 72 74 74 Respiratory Rate 20 20 20 Blood Pressure 108/59 L Pulse Oximetry 100 98 03/22/20 04:39 03/22/20 04:42 03/22/20 04:43 Temperature Pulse Rate 75 75 75 Respiratory Rate 20 Blood Pressure 108/59 L Pulse Oximetry 99 03/22/20 06:00 03/22/20 08:00 03/22/20 09:17 Temperature 37.7 C H Pulse Rate 85 74 92 Respiratory Rate 20 26 H 25 H Blood Pressure 115/59 L 127/62 Pulse Oximetry 100 99 03/22/20 09:59 03/22/20 10:00 03/22/20 11:40 Temperature Pulse Rate 90 90 81 Respiratory Rate 22 H Blood Pressure 135/63 Pulse Oximetry 96 100 03/22/20 11:49 03/22/20 11:50 07/30/20 12:00 Temperature 38.1 C H Pulse Rate 84 83 83 Respiratory Rate 20 Blood Pressure 131/63 132/62 Pulse Oximetry 100 03/22/20 12:47 03/22/20 12:58 Temperature 38.1 C H Pulse Rate 81 Respiratory R
--- NOTE | 2020-03-22 14:10 | PM.PNCARD ---
Progress Note: A&P Assessment and Plan (1) Non-ST elevated myocardial infarction (non-STEMI): Code(s): I21.4 - Non-ST elevation (NSTEMI) myocardial infarction Status: Acute Assessment and Plan: Her troponin was mildly elevated during her recent admission with sepsis and is elevated again this admission 0.2-->0.9 No ischemic changes on EKG. She did not report chest pain on admission before got intubated Her trop elevation is Likely due to type II myocardial infarction from increased demand from underlying resp failure with COVID She had echo on 02/21 with normal LV function and no regional wall motion changes Will follow troponin to peak. She is already anticoagulated with eliquis for h/o DVT. Would continue that.Would also start ASA. She would not be good candidate for ischemic evaluation at current time with her acute illness and even probably later on if she has recovery given her CKD ,other comorbidites and poor functional status (2) CHF (congestive heart failure): Qualifiers: Heart failure chronicity: unspecified Heart failure type: unspecified Qualified Code(s): I50.9 - Heart failure, unspecified Code(s): I50.9 - Heart failure, unspecified Status: Acute Assessment and Plan: Her volume status is difficult to assess due to bod habitus. She is febrile with likely insensible water loss wit that. Her creatinine went up to 1.9 from 1.5 yesterday after she received Lasix in ER. Would hold off further diuresing unless she becomes difficult to oxygenate on the vent. (3) Sinus tachycardia: Code(s): R00.0 - Tachycardia, unspecified Status: Acute Assessment and Plan: Multifactorial with fever and resp failure. No arrhythmia noted. 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 Sedated on the vent. Eyes: Sclera: sclerae normal Neck: Carotids: no bruits Neuro: Cranial nerves: Yes Normal hearing present Extrem: General: normal to inspection and edema Objective Data Vital Signs Vital Signs: Vital Signs - 24 hr 03/21/20 14:16 03/21/20 14:30 03/21/20 14:44 Temperature Pulse Rate 88 87 87 Respiratory Rate Blood Pressure 125/57 L 123/60 131/62 Pulse Oximetry 03/21/20 14:49 03/21/20 15:00 03/21/20 15:15 Temperature Pulse Rate 86 88 87 Respiratory Rate 20 Blood Pressure 110/57 L 120/62 Pulse Oximetry 03/21/20 15:30 03/21/20 15:43 03/21/20 15:44 Temperature Pulse Rate 84 86 86 Respiratory Rate 20 Blood Pressure 129/64 127/65 Pulse Oximetry 92 03/21/20 16:00 03/21/20 17:30 03/21/20 17:56 Temperature 37.2 C Pulse Rate 86 90 133 H Respiratory Rate 20 Blood Pressure 123/64 126/59 L Pulse Oximetry 92 96 03/21/20 17:58 03/21/20 18:00 03/21/20 18:04 Temperature 38.2 C H 38.2 C H Pulse Rate 138 H 131 H Respiratory Rate 20 20 Blood Pressure 108/75 Pulse Oximetry 93 03/21/20 18:20 03/21/20 18:21 03/21/20 18:31 Temperature Pulse Rate 125 H 126 H 129 H Respiratory Rate Blood Pressure 108/75 108/75 95/
[2020-03-22] MEDS: AZTREONAM 2 GM in DEXTROSE 5% 100 ML IVPB (14:49)
--- NOTE | 2020-03-22 17:16 | P.PNIM_ITS ---
Progress Note: A&P Assessment and Plan (1) COVID-19: Code(s): U07.1 - COVID-19 Status: Acute Assessment and Plan: high risk secondary to immunosuppression and chronic illness, covid came positive in short time (2) Acute and chronic respiratory failure: Qualifiers: Respiratory failure complication: unspecified whether with hypoxia or hypercapnia Qualified Code(s): J96.20 - Acute and chronic respiratory failure, unspecified whether with hypoxia or hypercapnia Code(s): J96.20 - Acute and chronic respiratory failure, unspecified whether with hypoxia or hypercapnia Status: Acute Assessment and Plan: * pt was emergently intubated * vent management by icu attending (3) Rheumatoid arthritis: Code(s): M06.9 - Rheumatoid arthritis, unspecified Status: Acute Assessment and Plan: * Hold sulfasalazine . (4) Obstructive sleep apnea on CPAP: Code(s): G47.33 - Obstructive sleep apnea (adult) (pediatric); Z99.89 - Dependence on other enabling machines and devices Status: Acute Assessment and Plan: * Unable to use CPAP as she is COVID positive (5) Stage 3 chronic kidney disease: Code(s): N18.3 - Chronic kidney disease, stage 3 (moderate) Status: Acute Assessment and Plan: * Creatinine is 2.8, worsening (6) Diastolic CHF: Code(s): I50.30 - Unspecified diastolic (congestive) heart failure Status: Acute Assessment and Plan: * resume p.o. Lasix in a.m. 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 (8) Type 2 diabetes mellitus: Code(s): E11.9 - Type 2 diabetes mellitus without complications Status: Acute Assessment and Plan: * Recent hemoglobin A1c was 5.4%. * Initiate sliding scale insulin, Accu-Cheks, and hypoglycemic protocol. (9) Hypertension: Code(s): I10 - Essential (primary) hypertension Status: Acute Assessment and Plan: * Blood pressures were reviewed and they are stable. * Her antihypertensives will be reviewed and resumed as appropriate. * Monitor blood pressures daily. (10) VRE (vancomycin-resistant Enterococci) infection: Code(s): A49.1 - Streptococcal infection, unspecified site; Z16.21 - Resistance to vancomycin Status: Acute Assessment and Plan: linezolid stopped by id (11) Sepsis: Code(s): A41.9 - Sepsis, unspecified organism Status: Acute Assessment and Plan: * Present on admission supported by fever, tachycardia, and leukocytosis. * sepsis secondary to covid pneumonia * treat with iv remdesivir as per ID and iv steroids Subjective Date/time seen: 03/22/20 17:16 Interval history: Chris is a chronically ill 60-year-old female with multipl
--- NOTE | 2020-03-22 17:16 | PM.IMPN ---
Progress Note: A&P Assessment and Plan (1) COVID-19: Code(s): U07.1 - COVID-19 Status: Acute Assessment and Plan: high risk secondary to immunosuppression and chronic illness, covid came positive in short time (2) Acute and chronic respiratory failure: Qualifiers: Respiratory failure complication: unspecified whether with hypoxia or hypercapnia Qualified Code(s): J96.20 - Acute and chronic respiratory failure, unspecified whether with hypoxia or hypercapnia Code(s): J96.20 - Acute and chronic respiratory failure, unspecified whether with hypoxia or hypercapnia Status: Acute Assessment and Plan: pt was emergently intubated vent management by icu attending (3) Rheumatoid arthritis: Code(s): M06.9 - Rheumatoid arthritis, unspecified Status: Acute Assessment and Plan: Hold sulfasalazine . (4) Obstructive sleep apnea on CPAP: Code(s): G47.33 - Obstructive sleep apnea (adult) (pediatric); Z99.89 - Dependence on other enabling machines and devices Status: Acute Assessment and Plan: Unable to use CPAP as she is COVID positive (5) Stage 3 chronic kidney disease: Code(s): N18.3 - Chronic kidney disease, stage 3 (moderate) Status: Acute Assessment and Plan: Creatinine is 2.8, worsening (6) Diastolic CHF: Code(s): I50.30 - Unspecified diastolic (congestive) heart failure Status: Acute Assessment and Plan: resume p.o. Lasix in a.m. 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 (8) Type 2 diabetes mellitus: Code(s): E11.9 - Type 2 diabetes mellitus without complications Status: Acute Assessment and Plan: Recent hemoglobin A1c was 5.4%. Initiate sliding scale insulin, Accu-Cheks, and hypoglycemic protocol. (9) Hypertension: Code(s): I10 - Essential (primary) hypertension Status: Acute Assessment and Plan: Blood pressures were reviewed and they are stable. Her antihypertensives will be reviewed and resumed as appropriate. Monitor blood pressures daily. (10) VRE (vancomycin-resistant Enterococci) infection: Code(s): A49.1 - Streptococcal infection, unspecified site; Z16.21 - Resistance to vancomycin Status: Acute Assessment and Plan: linezolid stopped by id (11) Sepsis: Code(s): A41.9 - Sepsis, unspecified organism Status: Acute Assessment and Plan: Present on admission supported by fever, tachycardia, and leukocytosis. sepsis secondary to covid pneumonia treat with iv remdesivir as per ID and iv steroids Subjective Date/time seen: 03/22/20 17:16 Interval history: Chris is a chronically ill 60-year-old female with multiple medical problems to include morbid obesity, obstructive sleep apnea, chronic kidney disease, rheumatoid arthritis on immunosuppressants, chronic stasis dermatitis, home he type 2 diabetes mellitus, VRE UTI, from [facility] for evaluation of shortness of breath. Pt is covid positive was intubated today for respiratory distress in icu. Seen by ICU MD, ID MD and cardiology MD and nephrology MD Review of Systems Review of Systems: ROS unobtainabl
[2020-03-22 18:04] LABS: SARS-CoV-2 RNA PCR Negative
[2020-03-22 18:25] LABS: Glucose Point of Care 137 (65-105)
[2020-03-22] MEDS: EZETIMIBE 10 MG TABLET PO (21:54)
[2020-03-22] MEDS: AZTREONAM 1 GM in DEXTROSE 5% IN WATER 50 ML IVPB (21:54)
[2020-03-22 23:46] LABS: Glucose Point of Care 149 (65-105)
[2020-03-23] VITALS (36 sets, daily range): BP systolic 120–156; BP diastolic 56–75; PULSE 63–84; RESP 20–21; TEMP 36.1–37.2; O2SAT 99–100
[2020-03-23 05:04] LABS: Mean Corpuscular HGB Conc 30.9 g/dl (32-36); Mean Corpuscular Hemoglobin 29.7 pg (26-34); Mean Corpuscular Volume 96.1 fl (80-100); Mean Platelet Volume 9.8 fl (7.4-10.4); Platelet Count Result 141 k/mm3 (150-375); Red Blood Count 2.29 M/mm3 (4.2-5.4); White Blood Count 12.5 K/mm3 (4.5-10.0)
[2020-03-23 05:09] LABS: Hemoglobin 6.8 g/dL (12.0-15.0)
[2020-03-23 05:17] LABS: Lactic Acid 0.8 mmol/L (0.7-2.1)
[2020-03-23 05:26] LABS: Alanine Aminotransferase 11 U/L (4-35); Albumin Level 2.5 g/dL (3.5-5.1); Alkaline Phosphatase 129 U/L (38-126); Anion Gap 11.3 mmol/L (7-16); Aspartate Amino Transferase 30 U/L (14-36); Bilirubin,Total 0.2 mg/dL (0.2-1.3); Blood Urea Nitrogen 62 mg/dL (7-17); Calcium 7.9 mg/dL (8.4-10.2); Carbon Dioxide 30 mmol/L (22-30); Chloride 93 mmol/L (98-107); Estimated CRCL calculation 27 ml/min; Estimated Glomerular Filt Rate 16; Glucose 133 mg/dL (65-105); Lactate Dehydrogenase 387 U/L (313-618); Phosphorus 4.8 mg/dL (2.5-4.5); Potassium 4.3 mmol/L (3.4-5.0); Sodium 130 mmol/L (137-145)
[2020-03-23 05:41] LABS: Alveolar/Arterial O2 Gradient 116.2 mmHg; Base Excess ABG 3.9 mEq/l (+/-2.0); Carboxyhemoglobin 0.7 % THb (0-2.0); Device VENTILATOR; Fractional Inspired Oxygen 35 %; HCO3 ABG 29.1 mEq/l (22.0-26.0); Methemoglobin ABG 0.1 %THb (0-1.5); Modified Allen's Test Pass; Oxygen Saturation ABG 95.9 % (95.0-100.0); PCO2 ABG 46.2 mmHg (35.0-45.0); PO2 ABG 79.6 mmHg (80.0-100.0); PO2 FiO2 Ratio Arterial Blood 2.27 %; Reduced Hemoglobin 5.2 %THb (0-5.0); Site Drawn LEFT RADIAL; Total Hemoglobin 12.8 g/dL (12.0-18.0); pH ABG 7.417 (7.350-7.450)
[2020-03-23 05:42] LABS: Arterial Blood Gas PEEP 8 cmH2O; Arterial Blood Gas Tidal Volume 340 ml; Arterial Blood Gas Vent Mode CMV; Arterial Blood Gas Ventilator rate 20 /MIN
[2020-03-23 06:01] LABS: CRP 44.3 mg/dL (<1.0)
[2020-03-23] MEDS: AZTREONAM 1 GM in DEXTROSE 5% IN WATER 50 ML IVPB ×3 (06:26→21:15)
[2020-03-23] MEDS: LEVOTHYROXINE SODIUM 150 MCG TABLET PO (06:32)
[2020-03-23] MEDS: BUDESONIDE RESPULE NEB 0.5 MG/2 ML AMP INHALATION ×2 (09:20→20:28)
[2020-03-23] MEDS: ALBUTEROL SULFATE NEB 2.5 MG/0.5 ML INH INHALATION ×3 (09:20→20:25)
[2020-03-23] MEDS: IPRATROPIUM BR 0.02% INH SOLN 0.5 MG/2.5 ML VIAL INHALATION ×3 (09:21→20:27)
[2020-03-23] MEDS: calcitrioL 0.25 MCG CAPSULE PO (09:35)
[2020-03-23] MEDS: CYANOCOBALAMIN 500 MCG TABLET PO (09:35)
[2020-03-23] MEDS: FUROSEMIDE INJ 40 MG/4 ML VIAL IV PUSH ×2 (09:35→21:15)
[2020-03-23] MEDS: ASCORBIC ACID 500 MG TABLET PO (09:35)
[2020-03-23] MEDS: SODIUM CHLORIDE 0.9% IV 250 ML 30 ML IV CONT (09:35)
[2020-03-23] MEDS: MAGNESIUM OXIDE 400 MG TABLET PO (09:35)
[2020-03-23] MEDS: ACIDOPHILUS/BULGARICUS CHEWABLE TABLET 2 TABLET PO (09:35)
[2020-03-23] MEDS: POLYSACCHARIDE IRON COMPLEX 150 MG CAPSULE PO (09:35)
[2020-03-23] MEDS: GABAPENTIN 300 MG CAPSULE PO ×2 (09:35→21:04)
[2020-03-23] MEDS: PANTOPRAZOLE SODIUM IV 40 MG VIAL IV PUSH (09:35)
[2020-03-23 11:08] LABS: Glucose Point of Care 114 (65-105)
[2020-03-23 13:15] LABS: Hematocrit 24.3 % (37.0-47.0); Hemoglobin 7.7 g/dL (12.0-15.0)
--- NOTE | 2020-03-23 13:15 | PCDIET ---
Nutrition Follow-Up Complete: Nutrition Diagnosis: Inadequate oral intake related to oral intubation as evidenced by NPO status. Nutrition Goal: Patient to meet estimated nutritional needs. Goal in progress. Patient tolerating Vital 1.5 at 30mL/hr with plan to advance toward goal of 40mL/hr. Residuals 220mL and below; will monitor. Last recorded weight is 147 kg which is slightly increased from last review. +I/O. Bowel Motility: No BM as of yet - MD aware. Labs Reviewed: Hgb (6.8), Hct (22.0), BUN (62), Cr (2.9), Na (130), Alb (2.5), Bhavesh Ca (9.1) Meds Noted: Albuterol, Aztreonam, Vitamin B12, Colace, Fentanyl, Vitamin C, Dulcolax, Rocaltrol, Novolog, Atrovent, Lactinex, Mag-Ox, Synthroid, Versed, Levophed, Zofran, Protonix, Lasix, Nifirex-150 Additional Notes: Generalized bruising, but no skin breakdown, per nursing. Patient receiving blood transfusion today. If residuals become consistently greater than 250mL would consider use of prokinetic agent. Will continue to monitor with same goal. Nutrition Monitoring and Evaluation: Follow up every Thursday/Thursday. Follow daily in ICU rounds.
[2020-03-23 13:40] LABS: Iron 66 ug/dL (37-170)
--- NOTE | 2020-03-23 13:48 | PM.PNNEP ---
Progress Note: A&P Assessment and Plan (1) Stage 3 chronic kidney disease: Code(s): N18.3 - Chronic kidney disease, stage 3 (moderate) Status: Acute Assessment and Plan: the patient has CKD stage 3. This could be from several things including hypertension, morbid obesity, and sleep apnea. Vascular disease is always and possibility as well. Her creatinine generally runs between 1.5 and 2. Occasionally it rises if she is sick. (2) Acute kidney injury: Code(s): N17.9 - Acute kidney failure, unspecified Status: Acute Assessment and Plan: The patient has acute kidney injury. Her creatinine was normal when she got here and nichelle as she has gotten sicker. ultrasound looks okay. Urine electrolytes show pre renal azotemia. The patient has blood in urine positivity for E coli. Most likely this is acute kidney injury due to sepsis and ATN. She may have an element of poor perfusion possibly from 3rd spacing from sepsis. Her chest x-ray does show fluid and she has some edema . Her creatinine nichelle quite a bit between 2 days ago and yesterday but has plateaued between yesterday and today. So I am hoping her renal function is recovering. I agree with giving her some furosemide. Long discussion with Dr Gutierrez Continue supportive care. (3) Acute and chronic respiratory failure: Qualifiers: Respiratory failure complication: unspecified whether with hypoxia or hypercapnia Qualified Code(s): J96.20 - Acute and chronic respiratory failure, unspecified whether with hypoxia or hypercapnia Code(s): J96.20 - Acute and chronic respiratory failure, unspecified whether with hypoxia or hypercapnia Status: Acute Assessment and Plan: The patient has chronic respiratory failure from sleep apnea and morbid obesity. She also has a history of reversible airways disease according to the chart. Now she has pulmonary infiltrates probably due to Sepsis. (4) COVID-19: Code(s): U07.1 - COVID-19 Status: Acute Assessment and Plan: Negative. (5) Septic shock: Code(s): A41.9 - Sepsis, unspecified organism; R65.21 - Severe sepsis with septic shock Status: Acute Assessment and Plan: Patient has cultures pending and is on antibiotics. (6) Non-ST elevated myocardial infarction (non-STEMI): Code(s): I21.4 - Non-ST elevation (NSTEMI) myocardial infarction Status: Acute Assessment and Plan: Troponins were positive. (7) History of DVT (deep vein thrombosis): Code(s): Z86.718 - Personal history of other venous thrombosis and embolism Status: Acute Assessment and Plan: Patient is on Eliquis (8) Rheumatoid arthritis: Code(s): M06.9 - Rheumatoid arthritis, unspecified Status: Acute Assessment and Plan: she gets Plaquenil and Sulfasalazine (9) Hypertension: Code(s): I10 - Essential (primary) hypertension Status: Acute Assessment and Plan: Blood pressure is well controlled right now. Subjective Date/time seen: 03/23/20 13:48 Interval history: Patient is still on the vent and sedated. In no distress. Review of Systems Review of Systems: ROS unobtainable: Yes unobtainable due to medical condition Exam Narrative: Exam Narrative: WDWN in NAD skin no rash head ncat lungs Coarse bilaterally cor reg no rub abd BS+ hypoactive, nontender and soft ext 1+ edema. Objective Data Vital Signs Vital Signs: Vital Signs - 24 hr 03/22/20 13:58 03/22/20 14:00 03/22/20 14:53 Temperature 37.6 C Pulse Rate 77 76 Respiratory Rate 20 20 Blood Pressure 130/61 Pulse Oximetry 99 03/22/20 15:57 03/22/20 16:00 03/22/20 17:26 Temperature 37.1 C Pulse Rate 82 79 79 Respiratory Rate 20 20 Blood Pressure 159/65 H Pulse Oximetry 100 100 03/22/20 17:34 03/22/20 18:00 03/22/20 20:00 Temperature 36.3 C L
[2020-03-23 13:51] LABS: Percent Iron Saturation 41 % (20-50)
--- NOTE | 2020-03-23 13:56 | WPDINTPN ---
Progress Note: A&P Assessment and Plan (1) Acute and chronic respiratory failure: Qualifiers: Respiratory failure complication: unspecified whether with hypoxia or hypercapnia Qualified Code(s): J96.20 - Acute and chronic respiratory failure, unspecified whether with hypoxia or hypercapnia Code(s): J96.20 - Acute and chronic respiratory failure, unspecified whether with hypoxia or hypercapnia Status: Acute Assessment and Plan: patient with positive COVID-19, presented to the ED with increasing shortness breath, diffuse lung disease on chest x-ray. - Desaturated on 03/20, agonal breathing, almost unresponsive, was intubated pending respiratory failure - patient on CMV mode of ventilation, 35% FiO2 and peep of 8 , chest x-ray and ABGs reviewed, possible pulmonary edema - sedated with fentanyl Versed infusion, maintain RASS of 0 to -2, daily sedation vacation - continue bronchodilators (2) COVID-19: Code(s): U07.1 - COVID-19 Status: Acute Assessment and Plan: patient was test is [facility] - 03/20/2020 SARS-CoV-2 PCR in the ER: negative - 03/22/2020 SARS-CoV-2 PCR: negative - discussed with infectious disease on 03/22/2020: If TWO SARS-CoV-2 PCR are negative will discontinue Remdesivir, dexamethasone and isolation. - Will discontinue Remdesivir, dexamethasone and isolation (3) Septic shock: Code(s): A41.9 - Sepsis, unspecified organism; R65.21 - Severe sepsis with septic shock Status: Acute Assessment and Plan: septic shock likely related to pneumonia, UTI, positive pressure ventilation - patient was given 1.5L IV fluid bolus on 03/21/2020, central line was inserted and started on Levophed. currently off Levophed since 03/21 - continue antibiotics as above - blood and urine cultures growing E coli . Patient has multiple allergies, continue aztreonam #2, ID is agreeable. 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: without prison use Diabetes mellitus complication status: without complication Qualified Code(s): E11.9 - Type 2 diabetes mellitus without complications Code(s): E11.9 - Type 2 diabetes mellitus without complications Status: Acute Assessment and Plan: recent hemoglobin A1c was 5.4 - continue Accu-Cheks and sliding scale insulin (5) Stage 3 chronic kidney disease: Code(s): N18.3 - Chronic kidney disease, stage 3 (moderate) Status: Acute Assessment and Plan: patient with stage 3 chronic kidney disease with baseline creatinine between 1.5-2.0 - elevated creatinine - will diurese with Lasix today, nephrology agreeable with the plan - renal ultrasound shows normal kidneys - continue to monitor renal function, electrolytes and urine output (6) Diastolic CHF: Code(s): I50.30 - Unspecified diastolic (congestive) heart failure Status: Acute Assessment and Plan: history of diastolic heart failure - echocardiogram on 02/22/2020 with normal LV function and no regional wall motion changes, grade 1 diastolic dysfunction - will start diuresis (7) Rheumatoid arthritis: Code(s): M06.9 - Rheumatoid arthritis, unspecified Status: Acute Assessment and Plan: continue hydroxychloroquine and prednisone (8) VRE (vancomycin-resistant Enterococci) infection: Code(s): A49.1 - Streptococcal infection, unspecified site; Z16.21 - Resistance to vancomycin Status: Acute Assessment and Plan: off linezolid per Infectious Disease - Appreciate infectious disease evaluation and recommendations (9) History of DVT (deep vein thrombosis): Code(s): Z86.718 - Personal history of other venous thrombosis and embolism Status: Acute Assessment and Plan: on Eliquis at home will continue (10) Non-ST elevated myocardial infarction (non-STEMI):
--- NOTE | 2020-03-23 15:01 | WPDINFPN2 ---
Progress Note: A&P Assessment and Plan (1) COVID-19: Code(s): U07.1 - COVID-19 Status: Acute Assessment and Plan: 1. CoVid 19 infection causing viral pneumonia, 3 repeat swabs all negative; in sum, infection has resolved. 2. Multiple allergies 3. Bacteriuria, no voiding symptoms, causing E coli UTI and bacteremia,suspect upper tract infection 4. Respiratory failure, could be due to her septicemia REC Off Remdesivir and dexamethasone, as well as off isolation. Aztreonam #2 / 7-10 days. Subjective Date/time seen: 03/23/20 15:01 Interval history: intubated, no pressors Exam Narrative: Exam Narrative: afebrile, normal BP Const: General: no acute distress Resp: Effort & Inspection: normal respiratory effort Auscultation: clear to auscultation bilaterally and diminished lung sounds Cardio: Rate: regular rate Rhythm: regular rhythm Heart sounds: no murmurs GI: Inspection: non-distended GI Palp: Yes Soft to palpation and No Tenderness to palpation present (GI) Skin: General skin exam: normal color and no rashes or lesions noted Objective Data Vital Signs Vital Signs: Vital Signs - 24 hr 03/22/20 15:57 03/22/20 16:00 03/22/20 17:26 Temperature 37.1 C Pulse Rate 82 79 79 Respiratory Rate 20 20 Blood Pressure 159/65 H Pulse Oximetry 100 100 03/22/20 17:34 03/22/20 18:00 03/22/20 20:00 Temperature 36.3 C L Pulse Rate 80 73 70 Respiratory Rate 20 20 Blood Pressure 155/69 H 153/65 H Pulse Oximetry 100 100 03/22/20 20:50 03/22/20 22:00 03/22/20 22:06 Temperature Pulse Rate 70 80 78 Respiratory Rate 20 20 Blood Pressure 155/80 H Pulse Oximetry 100 100 03/22/20 22:07 03/22/20 23:01 03/22/20 23:14 Temperature Pulse Rate 74 71 73 Respiratory Rate 20 Blood Pressure 145/59 H Pulse Oximetry 100 03/23/20 00:00 03/23/20 02:00 03/23/20 02:39 Temperature 36.6 C Pulse Rate 70 68 67 Respiratory Rate 20 20 Blood Pressure 146/68 H 137/69 Pulse Oximetry 100 100 100 03/23/20 03:14 03/23/20 04:00 03/23/20 04:37 Temperature 36.5 C Pulse Rate 66 66 68 Respiratory Rate 20 20 20 Blood Pressure 128/58 L Pulse Oximetry 100 100 03/23/20 04:38 03/23/20 05:35 03/23/20 06:00 Temperature Pulse Rate 68 67 72 Respiratory Rate 20 20 Blood Pressure 148/71 H Pulse Oximetry 100 100 03/23/20 06:30 03/23/20 08:00 03/23/20 08:15 Temperature 36.6 C Pulse Rate 73 75 71 Respiratory Rate 20 20 20 Blood Pressure 148/71 H 156/73 H Pulse Oximetry 100 03/23/20 09:31 03/23/20 09:32 03/23/20 09:37 Temperature 36.1 C L Pulse Rate 68 68 68 Respiratory Rate 20 20 Blood Pressure 141/62 H Pulse Oximetry 100 100 03/23/20 09:48 03/23/20 10:00 03/23/20 10:48 Temperature 36.2 C L 36.2 C L Pulse Rate 68 67 67 Respiratory Rate 20 20 20 Blood Pressure 145/75 H 140/73 127/57 L Pulse Oximetry 100 100 100 03/23/20 11:04 03/23/20 11:35 03/23/20 12:00 Temperature 36.1 C L Pulse Rate 67 68 67 Respiratory Rate 20 20 Blood Pressure 130/59 L Pulse Oximetry 100 100 03/23/20 13:32 03/23/20 14:31 Temperature Pulse Rate 70 68 Respiratory Rate Blood Pressure Pulse Oximetry 100 Intake/Output Intake/Output: Intake & Output 03/20/20 03/21/20 03/22/20 03/23/20 23:59 23:59 23:59 23:59 Intake Total 550 3150 1073 1560 Output Total 100 655 750 300 Balance 450 4031 323 1260 Meds/Results Medications: Active Medications Generic Name Dose Route Start Last Admin Trade Name Freq PRN Reason Stop Dose Admin Acetaminophen 650 mg 03/21/20 19:35 03/22/20 12:58 Tylenol Elixir PO 650 mg Q4H PRN Administration Mild Pain (1-3) or Fever Albuterol 2.5 mg 03/23/20 08:00 03/23/20 14:31 Albuterol Sulf Neb 2.5mg/0.5ml INHALATION 2.5 mg Q6HRT BONNIE Administration Apixaban 5 mg 03/20/20 21:00 03/22/20 21:54 Eliquis PO 5 mg Q12HR BONNIE Administration Ascorbic Acid 500 mg 03/21/20 09:00
[2020-03-23] MEDS: dilTIAZem HCL 60 MG TABLET PO (17:17)
[2020-03-23] MEDS: predniSONE 10 MG TABLET PO (17:17)
[2020-03-23 18:56] LABS: Glucose Point of Care 111 (65-105)
[2020-03-23] MEDS: EZETIMIBE 10 MG TABLET PO (21:04)
[2020-03-24] VITALS (31 sets, daily range): BP systolic 112–161; BP diastolic 46–104; PULSE 58–138; RESP 11–20; TEMP 36.5–37; O2SAT 95–100
[2020-03-24 01:11] LABS: Glucose Point of Care 142 (65-105)
[2020-03-24] MEDS: dilTIAZem HCL 60 MG TABLET PO ×3 (01:15→08:41)
[2020-03-24] MEDS: ALBUTEROL SULFATE NEB 2.5 MG/0.5 ML INH INHALATION ×4 (02:37→20:50)
[2020-03-24] MEDS: IPRATROPIUM BR 0.02% INH SOLN 0.5 MG/2.5 ML VIAL INHALATION ×4 (02:37→20:50)
[2020-03-24 05:07] LABS: Alveolar/Arterial O2 Gradient 120.5 mmHg; Base Excess ABG 2.9 mEq/l (+/-2.0); Carboxyhemoglobin 0.5 % THb (0-2.0); Fractional Inspired Oxygen 35 %; HCO3 ABG 27.8 mEq/l (22.0-26.0); Oxygen Saturation ABG 95.7 % (95.0-100.0); Oxyhemoglobin 94.5 % THb (90.0-100.0); PO2 ABG 77.9 mmHg (80.0-100.0); PO2 FiO2 Ratio Arterial Blood 2.23 %; Total Hemoglobin 8.2 g/dL (12.0-18.0); pH ABG 7.418 (7.350-7.450)
[2020-03-24 05:08] LABS: Arterial Blood Gas PEEP 8 cmH2O; Arterial Blood Gas Tidal Volume 340 ml; Arterial Blood Gas Vent Mode CMV; Arterial Blood Gas Ventilator rate 20 /MIN; Device VENTILATOR; Modified Allen's Test Pass; Site Drawn RIGHT RADIAL
[2020-03-24] MEDS: AZTREONAM 1 GM in DEXTROSE 5% IN WATER 50 ML IVPB ×3 (06:00→21:27)
[2020-03-24] MEDS: LEVOTHYROXINE SODIUM 150 MCG TABLET PO (06:28)
[2020-03-24 07:15] LABS: D Dimer 1.28 ug/mL (<0.48)
[2020-03-24 07:16] LABS: Lactic Acid 0.6 mmol/L (0.7-2.1)
[2020-03-24 07:20] LABS: Hematocrit 23.4 % (37.0-47.0); Hemoglobin 7.5 g/dL (12.0-15.0); Mean Corpuscular HGB Conc 32.1 g/dl (32-36); Mean Corpuscular Hemoglobin 29.3 pg (26-34); Mean Corpuscular Volume 91.4 fl (80-100); Mean Platelet Volume 10.8 fl (7.4-10.4); Platelet Count Result 177 k/mm3 (150-375); Red Blood Count 2.56 M/mm3 (4.2-5.4); Red Cell Distribution Width 16.2 % (11.5-14.5); White Blood Count 9.5 K/mm3 (4.5-10.0)
[2020-03-24] MEDS: BUDESONIDE RESPULE NEB 0.5 MG/2 ML AMP INHALATION ×2 (07:38→20:50)
[2020-03-24 07:41] LABS: Glucose Point of Care 134 (65-105)
[2020-03-24 08:02] LABS: Alanine Aminotransferase 9 U/L (4-35); Albumin Level 2.7 g/dL (3.5-5.1); Alkaline Phosphatase 128 U/L (38-126); Anion Gap 13.7 mmol/L (7-16); Aspartate Amino Transferase 27 U/L (14-36); Bilirubin,Total 0.3 mg/dL (0.2-1.3); Blood Urea Nitrogen 74 mg/dL (7-17); CRP 25.3 mg/dL (<1.0); Calcium 7.7 mg/dL (8.4-10.2); Carbon Dioxide 28 mmol/L (22-30); Chloride 93 mmol/L (98-107); Estimated CRCL calculation 36 ml/min; Estimated Glomerular Filt Rate 24; Glucose 134 mg/dL (65-105); Lactate Dehydrogenase 586 U/L (313-618); Magnesium 2.1 mg/dL (1.6-2.3); Phosphorus 5.4 mg/dL (2.5-4.5); Potassium 4.7 mmol/L (3.4-5.0); Sodium 130 mmol/L (137-145)
[2020-03-24] MEDS: dilTIAZem HCl INJ 25 MG/5 ML VIAL 10 MG IV PUSH (08:46)
[2020-03-24] MEDS: ACIDOPHILUS/BULGARICUS CHEWABLE TABLET 2 TABLET PO (09:14)
[2020-03-24] MEDS: predniSONE 10 MG TABLET PO (09:15)
[2020-03-24] MEDS: MAGNESIUM OXIDE 400 MG TABLET PO (09:16)
[2020-03-24] MEDS: POLYSACCHARIDE IRON COMPLEX 150 MG CAPSULE PO (09:16)
[2020-03-24] MEDS: calcitrioL 0.25 MCG CAPSULE PO (09:16)
[2020-03-24] MEDS: FLUTICASONE PROPIONATE 0.05% NA SPR 16 GM BTL (*BKC) 1 SPRAY NASAL (09:16)
[2020-03-24] MEDS: PANTOPRAZOLE SODIUM IV 40 MG VIAL IV PUSH (09:17)
[2020-03-24] MEDS: GABAPENTIN 300 MG CAPSULE PO (09:17)
[2020-03-24] MEDS: CYANOCOBALAMIN 500 MCG TABLET PO (09:18)
[2020-03-24] MEDS: ASCORBIC ACID 500 MG TABLET PO (09:18)
--- NOTE | 2020-03-24 09:32 | PM.PNNEP ---
Progress Note: A&P Assessment and Plan (1) Stage 3 chronic kidney disease: Code(s): N18.3 - Chronic kidney disease, stage 3 (moderate) Status: Acute Assessment and Plan: the patient has CKD stage 3. This could be from several things including hypertension, morbid obesity, and sleep apnea. Vascular disease is always and possibility as well. Her creatinine generally runs between 1.5 and 2. Occasionally it rises if she is sick. (2) Acute kidney injury: Code(s): N17.9 - Acute kidney failure, unspecified Status: Acute Assessment and Plan: The patient has acute kidney injury. Her creatinine was normal when she got here and nichelle as she has gotten sicker. ultrasound looks okay. Urine electrolytes show pre renal azotemia. The patient has blood in urine positive for E coli. Most likely this is acute kidney injury due to sepsis and ATN. She may have an element of poor perfusion possibly from 3rd spacing from sepsis. creatinine is improved. discussed with Pharmacy Consultant Will give another dose of diuretics As the chest x-ray still looks wet. (3) Acute and chronic respiratory failure: Qualifiers: Respiratory failure complication: unspecified whether with hypoxia or hypercapnia Qualified Code(s): J96.20 - Acute and chronic respiratory failure, unspecified whether with hypoxia or hypercapnia Code(s): J96.20 - Acute and chronic respiratory failure, unspecified whether with hypoxia or hypercapnia Status: Acute Assessment and Plan: The patient has chronic respiratory failure from sleep apnea and morbid obesity. She also has a history of reversible airways disease according to the chart. Now she has pulmonary infiltrates probably due to Sepsis. (4) COVID-19: Code(s): U07.1 - COVID-19 Status: Acute Assessment and Plan: Negative. (5) Septic shock: Code(s): A41.9 - Sepsis, unspecified organism; R65.21 - Severe sepsis with septic shock Status: Acute Assessment and Plan: Patient has cultures pending and is on antibiotics. (6) Non-ST elevated myocardial infarction (non-STEMI): Code(s): I21.4 - Non-ST elevation (NSTEMI) myocardial infarction Status: Acute Assessment and Plan: Troponins were positive. (7) History of DVT (deep vein thrombosis): Code(s): Z86.718 - Personal history of other venous thrombosis and embolism Status: Acute Assessment and Plan: Patient is on Eliquis (8) Rheumatoid arthritis: Code(s): M06.9 - Rheumatoid arthritis, unspecified Status: Acute Assessment and Plan: she gets Plaquenil and Sulfasalazine (9) Hypertension: Code(s): I10 - Essential (primary) hypertension Status: Acute Assessment and Plan: Blood pressure is well controlled right now. As she improves we will fold in her antihypertensives when the blood pressure rises again Subjective Date/time seen: 03/24/20 09:32 Interval history: Patient is still on the vent and sedated. In no distress. Review of Systems Review of Systems: ROS unobtainable: Yes unobtainable due to medical condition Exam Narrative: Exam Narrative: WDWN in NAD skin no rash or subcu nodules head ncat lungs Coarse bilaterally cor reg no rub abd BS+ hypoactive, nontender and soft ext 1+ edema. and no cyanosis Objective Data Vital Signs Vital Signs: Vital Signs - 24 hr 03/23/20 09:37 03/23/20 09:48 03/23/20 09:50 Temperature 36.2 C L Pulse Rate 68 68 68 Respiratory Rate 20 20 20 Blood Pressure 145/75 H Pulse Oximetry 100 03/23/20 10:00 03/23/20 10:48 03/23/20 11:04 Temperature 36.2 C L Pulse Rate 67 67 67 Respiratory Rate 20 20 20 Blood Pressure 140/73 127/57 L Pulse Oximetry 100 100 03/23/20 11:35 03/23/20 12:00 03/23/20 13:32 Temperature 36.1 C L Pulse Rate 68 67 70 Respiratory Rate 20 Blood Pressur
[2020-03-24] MEDS: AMIODARONE 360 MG/D5W 200 ML 360 MG/200 ML BAG 33.3 MG IV CONT (09:34)
[2020-03-24 12:58] LABS: Glucose Point of Care 155 (65-105)
--- NOTE | 2020-03-24 13:11 | WPDINTPN ---
Progress Note: A&P Assessment and Plan (1) Acute and chronic respiratory failure: Qualifiers: Respiratory failure complication: unspecified whether with hypoxia or hypercapnia Qualified Code(s): J96.20 - Acute and chronic respiratory failure, unspecified whether with hypoxia or hypercapnia Code(s): J96.20 - Acute and chronic respiratory failure, unspecified whether with hypoxia or hypercapnia Status: Acute Assessment and Plan: patient with positive COVID-19, presented to the ED with increasing shortness breath, diffuse lung disease on chest x-ray. - Desaturated on 03/20, agonal breathing, almost unresponsive, was intubated pending respiratory failure - patient on CMV mode of ventilation, 35% FiO2 and peep of 5 , chest x-ray and ABGs reviewed. - sedated with fentanyl Versed infusion, maintain RASS of 0 to -2, daily sedation vacation - continue bronchodilators She has been placed on SBT trial today and seems to be tolerating well so far. An ABG is being performed now and if it is acceptable then she can potentially be extubated today. Tube feed has been on hold for possible extubation today. (2) COVID-19: Code(s): U07.1 - COVID-19 Status: Acute Assessment and Plan: patient was test [facility] - 03/20/2020 SARS-CoV-2 PCR in the ER: negative - 03/22/2020 SARS-CoV-2 PCR: negative - discussed with infectious disease on 03/22/2020: If TWO SARS-CoV-2 PCR are negative will discontinue Remdesivir, dexamethasone and isolation. - Will discontinue Remdesivir, dexamethasone and isolation (3) Septic shock: Code(s): A41.9 - Sepsis, unspecified organism; R65.21 - Severe sepsis with septic shock Status: Acute Assessment and Plan: septic shock likely related to pneumonia, UTI, positive pressure ventilation - patient was given 1.5L IV fluid bolus on 03/21/2020, central line was inserted and started on Levophed. currently off Levophed since 03/21 - continue antibiotics as above - blood and urine cultures growing E coli . Patient has multiple allergies, continue aztreonam #2, ID is agreeable. (4) Diabetes mellitus: Qualifiers: Diabetes mellitus type: type 2 Diabetes mellitus long-term insulin use: without extension edger use Diabetes mellitus complication status: without complication Qualified Code(s): E11.9 - Type 2 diabetes mellitus without complications Code(s): E11.9 - Type 2 diabetes mellitus without complications Status: Acute Assessment and Plan: recent hemoglobin A1c was 5.4 - continue Accu-Cheks and sliding scale insulin (5) Stage 3 chronic kidney disease: Code(s): N18.3 - Chronic kidney disease, stage 3 (moderate) Status: Acute Assessment and Plan: patient with stage 3 chronic kidney disease with baseline creatinine between 1.5-2.0 - elevated creatinine - She was given Lasix yesterday but she was still net fluid positive balance of 1 L. Primary team has ordered Bumex 2 mg 2 doses. Will give the 1st dose now before probable extubation to get good volume status. nephrology agreeable with the plan - renal ultrasound shows normal kidneys - continue to monitor renal function, electrolytes and urine output (6) Diastolic CHF: Code(s): I50.30 - Unspecified diastolic (congestive) heart failure Status: Acute Assessment and Plan: history of diastolic heart failure - echocardiogram on 02/22/2020 with normal LV function and no regional wall motion changes, grade 1 diastolic dysfunction - will start diuresis . Strict intake output record and daily weight. (7) Rheumatoid arthritis: Code(s): M06.9 - Rheumatoid arthritis, unspecified Status: Acute Assessment and Plan: continue hydroxychloroquine and prednisone (8) VRE (vancomycin-resistant Enterococci) infection: Code(s): A49.1 - Streptococcal infection, unspecified site; Z16.21 -
[2020-03-24 13:29] LABS: Alveolar/Arterial O2 Gradient 203.7 mmHg; Base Excess ABG 2.3 mEq/l (+/-2.0); Fractional Inspired Oxygen 35 %; Oxygen Content ABG 12.1 %vol (16.0-22.0); Oxygen Saturation ABG 95.3 % (95.0-100.0); Oxyhemoglobin 93.8 % THb (90.0-100.0); PCO2 ABG 48.8 mmHg (35.0-45.0); PO2 ABG 78.7 mmHg (80.0-100.0); PO2 FiO2 Ratio Arterial Blood 2.25 %; Total Hemoglobin 9.1 g/dL (12.0-18.0); pH ABG 7.376 (7.350-7.450)
[2020-03-24 13:30] LABS: Device VENTILATOR; Modified Allen's Test Pass; Site Drawn LEFT RADIAL
[2020-03-24 13:31] LABS: Arterial Blood Gas PEEP 5 cmH2O; Arterial Blood Gas Pressure Support 5 cmH2O; Arterial Blood Gas Vent Mode SPONTANEOUS
[2020-03-24] MEDS: BUMETANIDE INJ 2.5 MG/10 ML VIAL 2 MG IVPB (14:31)
[2020-03-24] MEDS: AMIODARONE 360 MG/D5W 200 ML 360 MG/200 ML BAG 16.7 MG IV CONT (15:13)
--- NOTE | 2020-03-24 15:52 | P.PNIM_ITS ---
Progress Note: A&P Assessment and Plan (1) COVID-19: Code(s): U07.1 - COVID-19 Status: Acute Assessment and Plan: high risk secondary to immunosuppression and chronic illness, covid came positive in short time 03/20/2020: Negative SARS-CoV-2 PCR 03/22/2020: negative SARS-CoV-2 PCR (2) Acute and chronic respiratory failure: Qualifiers: Respiratory failure complication: unspecified whether with hypoxia or hypercapnia Qualified Code(s): J96.20 - Acute and chronic respiratory failure, unspecified whether with hypoxia or hypercapnia Code(s): J96.20 - Acute and chronic respiratory failure, unspecified whether with hypoxia or hypercapnia Status: Acute Assessment and Plan: * pt was emergently intubated * extubated now (3) Rheumatoid arthritis: Code(s): M06.9 - Rheumatoid arthritis, unspecified Status: Acute Assessment and Plan: * Hold sulfasalazine . (4) Obstructive sleep apnea on CPAP: Code(s): G47.33 - Obstructive sleep apnea (adult) (pediatric); Z99.89 - Dependence on other enabling machines and devices Status: Acute Assessment and Plan: * Unable to use CPAP as she is COVID positive (5) Stage 3 chronic kidney disease: Code(s): N18.3 - Chronic kidney disease, stage 3 (moderate) Status: Acute Assessment and Plan: * Creatinine is 2.8, worsening (6) Diastolic CHF: Code(s): I50.30 - Unspecified diastolic (congestive) heart failure Status: Acute Assessment and Plan: * resume p.o. Lasix in a.m. (7) Chronic anticoagulation: Code(s): Z79.01 - superintendent terminal (current) use of anticoagulants Status: Acute Assessment and Plan: * Continue apixaban. (8) Type 2 diabetes mellitus: Code(s): E11.9 - Type 2 diabetes mellitus without complications Status: Acute Assessment and Plan: * Recent hemoglobin A1c was 5.4%. * Initiate sliding scale insulin, Accu-Cheks, and hypoglycemic protocol. (9) Hypertension: Code(s): I10 - Essential (primary) hypertension Status: Acute Assessment and Plan: * Blood pressures were reviewed and they are stable. * Her antihypertensives will be reviewed and resumed as appropriate. * Monitor blood pressures daily. (10) VRE (vancomycin-resistant Enterococci) infection: Code(s): A49.1 - Streptococcal infection, unspecified site; Z16.21 - Resistance to vancomycin Status: Acute Assessment and Plan: linezolid stopped by id (11) Sepsis: Code(s): A41.9 - Sepsis, unspecified organism Status: Acute Assessment and Plan: * Present on admission supported by fever, tachycardia, and leukocytosis. * sepsis secondary to covid pneumonia * treat with iv remdesivir as per ID and iv steroids * off remdesivir Subjective Date/time seen: 03/24/20 15:52
--- NOTE | 2020-03-24 15:52 | PM.IMPN ---
Progress Note: A&P Assessment and Plan (1) COVID-19: Code(s): U07.1 - COVID-19 Status: Acute Assessment and Plan: high risk secondary to immunosuppression and chronic illness, covid came positive in short time 03/20/2020: Negative SARS-CoV-2 PCR 03/22/2020: negative SARS-CoV-2 PCR (2) Acute and chronic respiratory failure: Qualifiers: Respiratory failure complication: unspecified whether with hypoxia or hypercapnia Qualified Code(s): J96.20 - Acute and chronic respiratory failure, unspecified whether with hypoxia or hypercapnia Code(s): J96.20 - Acute and chronic respiratory failure, unspecified whether with hypoxia or hypercapnia Status: Acute Assessment and Plan: pt was emergently intubated extubated now (3) Rheumatoid arthritis: Code(s): M06.9 - Rheumatoid arthritis, unspecified Status: Acute Assessment and Plan: Hold sulfasalazine . (4) Obstructive sleep apnea on CPAP: Code(s): G47.33 - Obstructive sleep apnea (adult) (pediatric); Z99.89 - Dependence on other enabling machines and devices Status: Acute Assessment and Plan: Unable to use CPAP as she is COVID positive (5) Stage 3 chronic kidney disease: Code(s): N18.3 - Chronic kidney disease, stage 3 (moderate) Status: Acute Assessment and Plan: Creatinine is 2.8, worsening (6) Diastolic CHF: Code(s): I50.30 - Unspecified diastolic (congestive) heart failure Status: Acute Assessment and Plan: resume p.o. Lasix in a.m. (7) Chronic anticoagulation: Code(s): Z79.01 - half-way (current) use of anticoagulants Status: Acute Assessment and Plan: Continue apixaban. (8) Type 2 diabetes mellitus: Code(s): E11.9 - Type 2 diabetes mellitus without complications Status: Acute Assessment and Plan: Recent hemoglobin A1c was 5.4%. Initiate sliding scale insulin, Accu-Cheks, and hypoglycemic protocol. (9) Hypertension: Code(s): I10 - Essential (primary) hypertension Status: Acute Assessment and Plan: Blood pressures were reviewed and they are stable. Her antihypertensives will be reviewed and resumed as appropriate. Monitor blood pressures daily. (10) VRE (vancomycin-resistant Enterococci) infection: Code(s): A49.1 - Streptococcal infection, unspecified site; Z16.21 - Resistance to vancomycin Status: Acute Assessment and Plan: linezolid stopped by id (11) Sepsis: Code(s): A41.9 - Sepsis, unspecified organism Status: Acute Assessment and Plan: Present on admission supported by fever, tachycardia, and leukocytosis. sepsis secondary to covid pneumonia treat with iv remdesivir as per ID and iv steroids off remdesivir Subjective Date/time seen: 03/24/20 15:52 Interval history: Chris is a chronically ill 60-year-old female with multiple medical problems to include morbid obesity, obstructive sleep apnea, chronic kidney disease, rheumatoid arthritis on immunosuppressants, chronic stasis dermatitis, home he type 2 diabetes mellitus, VRE UTI, from [facility] for evaluation of shortness of breath. Pt is covid positive was intubated today for respiratory distress in icu. Seen by ICU MD, ID and cardiology
[2020-03-24 18:16] LABS: Glucose Point of Care 166 (65-105)
[2020-03-24 19:23] LABS: Alveolar/Arterial O2 Gradient 80.1 mmHg; Base Excess ABG 2.6 mEq/l (+/-2.0); Device NASAL CANNULA; Fractional Inspired Oxygen 32 %; HCO3 ABG 28.3 mEq/l (22.0-26.0); Modified Allen's Test Pass; Oxygen Saturation ABG 96.6 % (95.0-100.0); Oxyhemoglobin 95.9 % THb (90.0-100.0); PCO2 ABG 49.6 mmHg (35.0-45.0); PO2 FiO2 Ratio Arterial Blood 2.81 %; Site Drawn LEFT RADIAL; Total Hemoglobin 8.8 g/dL (12.0-18.0); pH ABG 7.374 (7.350-7.450)
[2020-03-25] VITALS (27 sets, daily range): BP systolic 104–176; BP diastolic 42–70; PULSE 63–99; RESP 9–24; TEMP 36.8–37.1; O2SAT 95–100
[2020-03-25] MEDS: AMIODARONE 360 MG/D5W 200 ML 360 MG/200 ML BAG 16.7 MG IV CONT (02:48)
[2020-03-25] MEDS: IPRATROPIUM BR 0.02% INH SOLN 0.5 MG/2.5 ML VIAL INHALATION ×4 (02:59→19:11)
[2020-03-25] MEDS: ALBUTEROL SULFATE NEB 2.5 MG/0.5 ML INH INHALATION ×4 (02:59→19:11)
[2020-03-25 04:30] LABS: Alveolar/Arterial O2 Gradient 57.8 mmHg; Base Excess ABG 5.1 mEq/l (+/-2.0); Carboxyhemoglobin 0.4 % THb (0-2.0); Device NON-INVASIVE VENT; Fractional Inspired Oxygen 30 %; HCO3 ABG 30.2 mEq/l (22.0-26.0); Modified Allen's Test Pass; Oxygen Content ABG 11.6 %vol (16.0-22.0); Oxygen Saturation ABG 97.6 % (95.0-100.0); Oxyhemoglobin 96.6 % THb (90.0-100.0); PCO2 ABG 47.7 mmHg (35.0-45.0); PO2 ABG 100.1 mmHg (80.0-100.0); PO2 FiO2 Ratio Arterial Blood 3.34 %; Site Drawn LEFT RADIAL; Total Hemoglobin 8.4 g/dL (12.0-18.0); pH ABG 7.419 (7.350-7.450)
[2020-03-25 04:31] LABS: Non-Invasive Expiratory Pressure 6 CMH2O; Non-Invasive Inspiratory Pressure 18 CMH2O; Non-Invasive Vent Rate 4 /MIN
[2020-03-25] MEDS: AZTREONAM 1 GM in DEXTROSE 5% IN WATER 50 ML IVPB ×3 (05:49→22:18)
[2020-03-25 05:50] LABS: Hematocrit 23.6 % (37.0-47.0); Hemoglobin 7.5 g/dL (12.0-15.0); Mean Corpuscular HGB Conc 31.8 g/dl (32-36); Mean Corpuscular Hemoglobin 29.5 pg (26-34); Mean Corpuscular Volume 92.9 fl (80-100); Mean Platelet Volume 10.2 fl (7.4-10.4); Platelet Count Result 172 k/mm3 (150-375); Red Blood Count 2.54 M/mm3 (4.2-5.4); Red Cell Distribution Width 16.8 % (11.5-14.5)
[2020-03-25 06:06] LABS: Alanine Aminotransferase 8 U/L (4-35); Albumin Level 2.6 g/dL (3.5-5.1); Alkaline Phosphatase 137 U/L (38-126); Anion Gap 13.3 mmol/L (7-16); Aspartate Amino Transferase 22 U/L (14-36); Bilirubin,Total 0.3 mg/dL (0.2-1.3); Blood Urea Nitrogen 72 mg/dL (7-17); Calcium 7.8 mg/dL (8.4-10.2); Carbon Dioxide 30 mmol/L (22-30); Chloride 93 mmol/L (98-107); Estimated CRCL calculation 39 ml/min; Estimated Glomerular Filt Rate 25; Glucose 106 mg/dL (65-105); Magnesium 2.2 mg/dL (1.6-2.3); Phosphorus 5.4 mg/dL (2.5-4.5); Potassium 4.3 mmol/L (3.4-5.0); Sodium 132 mmol/L (137-145)
[2020-03-25] MEDS: BUDESONIDE RESPULE NEB 0.5 MG/2 ML AMP INHALATION ×2 (07:31→19:12)
[2020-03-25] MEDS: BUMETANIDE INJ 2.5 MG/10 ML VIAL 2 MG IV PUSH (09:04)
[2020-03-25] MEDS: FLUTICASONE PROPIONATE 0.05% NA SPR 16 GM BTL (*BKC) 1 SPRAY NASAL (09:05)
[2020-03-25] MEDS: HYDROCORTISONE 1% 30 GM OINTMENT 1 APPLIC TOPICAL (09:06)
--- NOTE | 2020-03-25 09:35 | WPDINTPN ---
Progress Note: A&P Assessment and Plan (1) Acute and chronic respiratory failure: Qualifiers: Respiratory failure complication: unspecified whether with hypoxia or hypercapnia Qualified Code(s): J96.20 - Acute and chronic respiratory failure, unspecified whether with hypoxia or hypercapnia Code(s): J96.20 - Acute and chronic respiratory failure, unspecified whether with hypoxia or hypercapnia Status: Acute Assessment and Plan: patient with positive COVID-19, presented to the ED with increasing shortness breath, diffuse lung disease on chest x-ray. - Desaturated on 03/20, agonal breathing, almost unresponsive, was intubated pending respiratory failure - continue bronchodilators She was extubated on 03/24 and tolerated it very well. She was placed on BiPAP overnight for unclear reason. She does have history of obstructive sleep apnea and using CPAP. She will be continued on BiPAP nightly for the next 2 days and then can be transitioned to her CPAP. She can use her home CPAP but if she cannot bring it and then she can be placed on auto CPAP with minimum pressure of 5 cm of water maximum pressure of 20 cm of water. She does not know her CPAP pressures. (2) COVID-19: Code(s): U07.1 - COVID-19 Status: Acute Assessment and Plan: patient was test is positive for COVID-[facility] at the [facility] - 03/20/2020 SARS-CoV-2 PCR in the ER: negative - 03/22/2020 SARS-CoV-2 PCR: negative - discussed with infectious disease on 03/22/2020: - Her Remdesivir, dexamethasone and isolation has been discontinued. (3) Septic shock: Code(s): A41.9 - Sepsis, unspecified organism; R65.21 - Severe sepsis with septic shock Status: Acute Assessment and Plan: septic shock likely related to pneumonia, UTI, positive pressure ventilation - patient was given 1.5L IV fluid bolus on 03/21/2020, central line was inserted and started on Levophed. currently off Levophed since 03/21 - continue antibiotics as above - blood and urine cultures growing E coli . Patient has multiple allergies, continue aztreonam #2, ID is agreeable. Can discontinue central line if 1-2 reliable peripheral lines can be placed. (4) Diabetes mellitus: Qualifiers: Diabetes mellitus complication status: without complication Diabetes mellitus long term care phlebotomist insulin use: without long term care phlebotomist use Diabetes mellitus type: type 2 Qualified Code(s): E11.9 - Type 2 diabetes mellitus without complications Code(s): E11.9 - Type 2 diabetes mellitus without complications Status: Acute Assessment and Plan: recent hemoglobin A1c was 5.4 - continue Accu-Cheks and sliding scale insulin (5) Stage 3 chronic kidney disease: Code(s): N18.3 - Chronic kidney disease, stage 3 (moderate) Status: Acute Assessment and Plan: patient with stage 3 chronic kidney disease with baseline creatinine between 1.5-2.0 - elevated creatinine Initially on presentation but now has trended down to her baseline of 2. - Nephrology following. Hold of diuretics today. Can continue diuretics depending upon her fluid status in the a.m.. - renal ultrasound shows normal kidneys - continue to monitor renal function, electrolytes and urine output (6) Diastolic CHF: Code(s): I50.30 - Unspecified diastolic (congestive) heart failure Status: Acute Assessment and Plan: history of diastolic heart failure - echocardiogram on 02/22/2020 with normal LV function and no regional wall motion changes, grade 1 diastolic dysfunction - Strict intake output record and daily weight. Hold of diuretics today. (7) Rheumatoid arthritis: Code(s): M06.9 - Rheumatoid arthritis, unspecified Status: Acute Assessment and Plan: continue hydroxychloroquine and prednisone (8) VRE (vancomycin-resistant Enterococci) infection: Code(s): A49.1 - Streptococcal infection, unspecified
--- NOTE | 2020-03-25 09:48 | PM.PNNEP ---
Progress Note: A&P Assessment and Plan (1) Stage 3 chronic kidney disease: Code(s): N18.3 - Chronic kidney disease, stage 3 (moderate) Status: Acute Assessment and Plan: the patient has CKD stage 3. This could be from several things including hypertension, morbid obesity, and sleep apnea. Vascular disease is always and possibility as well. Her creatinine generally runs between 1.5 and 2. Occasionally it rises if she is sick. (2) Acute kidney injury: Code(s): N17.9 - Acute kidney failure, unspecified Status: Acute Assessment and Plan: The patient has acute kidney injury. Her creatinine was normal when she got here and nichelle as she has gotten sicker. ultrasound looks okay. Urine electrolytes show pre renal azotemia. The patient has blood in urine positive for E coli. Most likely this is acute kidney injury due to sepsis and ATN. S creatinine is slowly better. Will give 1 more dose of diuretics and recheck the creatinine tomorrow. (3) Acute and chronic respiratory failure: Qualifiers: Respiratory failure complication: unspecified whether with hypoxia or hypercapnia Qualified Code(s): J96.20 - Acute and chronic respiratory failure, unspecified whether with hypoxia or hypercapnia Code(s): J96.20 - Acute and chronic respiratory failure, unspecified whether with hypoxia or hypercapnia Status: Acute Assessment and Plan: The patient has chronic respiratory failure from sleep apnea and morbid obesity. She also has a history of reversible airways disease according to the chart. She is breathing comfortably. (4) COVID-19: Code(s): U07.1 - COVID-19 Status: Acute Assessment and Plan: Negative. (5) Septic shock: Code(s): A41.9 - Sepsis, unspecified organism; R65.21 - Severe sepsis with septic shock Status: Acute Assessment and Plan: Patient Has E coli and blood in urine. On antibiotics. (6) Non-ST elevated myocardial infarction (non-STEMI): Code(s): I21.4 - Non-ST elevation (NSTEMI) myocardial infarction Status: Acute Assessment and Plan: Troponins were positive. (7) History of DVT (deep vein thrombosis): Code(s): Z86.718 - Personal history of other venous thrombosis and embolism Status: Acute Assessment and Plan: Patient is on Eliquis (8) Rheumatoid arthritis: Code(s): M06.9 - Rheumatoid arthritis, unspecified Status: Acute Assessment and Plan: she gets Plaquenil and Sulfasalazine (9) Hypertension: Code(s): I10 - Essential (primary) hypertension Status: Acute Assessment and Plan: Blood pressure is well controlled right now. Subjective Date/time seen: 03/25/20 09:48 Interval history: Patient is Extubated. Awake. No chest pain or shortness of breath. In no distress. Exam Narrative: Exam Narrative: WDWN in NAD skin no rash or subcu nodules head ncat lungs Coarse bilaterally , decreased breath sounds at the bases cor reg no rub or gallop abd BS+ hypoactive, nontender and soft ext 1+ edema. and no cyanosis Objective Data Vital Signs Vital Signs: Vital Signs - 24 hr 03/24/20 10:00 03/24/20 10:29 03/24/20 11:33 Temperature Pulse Rate 129 H 130 H 129 H Respiratory Rate 19 Blood Pressure 117/78 Pulse Oximetry 97 96 95 03/24/20 12:00 03/24/20 13:21 03/24/20 14:00 Temperature 36.6 C Pulse Rate 129 H 126 H 99 Respiratory Rate 18 18 Blood Pressure 112/66 119/89 Pulse Oximetry 97 98 96 03/24/20 14:09 03/24/20 15:13 03/24/20 16:00 Temperature 36.6 C Pulse Rate 95 83 73 Respiratory Rate 18 19 Blood Pressure 141/72 H 133/71 Pulse Oximetry 99 03/24/20 18:00 03/24/20 18:02 03/24/20 18:04 Temperature Pulse Rate 74 76 75 Respiratory Rate 18 19 19 Blood Pressure 139/73 Pulse Oximetry 99 03/24/20 20:00 03/24/20 20:58 08
[2020-03-25 10:22] LABS: IFOB Positive Control Positive; Immunochemical Fecal Occult Bl Positive (N)
[2020-03-25 12:10] LABS: Glucose Point of Care 102 (65-105)
[2020-03-25] MEDS: predniSONE 10 MG TABLET PO (12:47)
--- NOTE | 2020-03-25 14:09 | PC.NURSE ---
pt was transferred to U room 202 at 1350
--- NOTE | 2020-03-25 16:13 | P.PNIM_ITS ---
Progress Note: A&P Assessment and Plan (1) COVID-19: Code(s): U07.1 - COVID-19 Status: Acute Assessment and Plan: high risk secondary to immunosuppression and chronic illness, covid came positive in short time 03/20/2020: Negative SARS-CoV-2 PCR 03/22/2020: negative SARS-CoV-2 PCR (2) Acute and chronic respiratory failure: Qualifiers: Respiratory failure complication: unspecified whether with hypoxia or hypercapnia Qualified Code(s): J96.20 - Acute and chronic respiratory failure, unspecified whether with hypoxia or hypercapnia Code(s): J96.20 - Acute and chronic respiratory failure, unspecified whether with hypoxia or hypercapnia Status: Acute Assessment and Plan: * pt was emergently intubated * extubated yesterday transferd to floor (3) Rheumatoid arthritis: Code(s): M06.9 - Rheumatoid arthritis, unspecified Status: Acute Assessment and Plan: * Hold sulfasalazine . (4) Obstructive sleep apnea on CPAP: Code(s): G47.33 - Obstructive sleep apnea (adult) (pediatric); Z99.89 - Dependence on other enabling machines and devices Status: Acute Assessment and Plan: * Unable to use CPAP as she is COVID positive (5) Stage 3 chronic kidney disease: Code(s): N18.3 - Chronic kidney disease, stage 3 (moderate) Status: Acute Assessment and Plan: * Creatinine is 2.0 (6) Diastolic CHF: Code(s): I50.30 - Unspecified diastolic (congestive) heart failure Status: Acute Assessment and Plan: * resume p.o. Lasix in a.m. 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 (8) Type 2 diabetes mellitus: Code(s): E11.9 - Type 2 diabetes mellitus without complications Status: Acute Assessment and Plan: * Recent hemoglobin A1c was 5.4%. * Initiate sliding scale insulin, Accu-Cheks, and hypoglycemic protocol. (9) Hypertension: Code(s): I10 - Essential (primary) hypertension Status: Acute Assessment and Plan: * Blood pressures were reviewed and they are stable. * Her antihypertensives will be reviewed and resumed as appropriate. * Monitor blood pressures daily. (10) VRE (vancomycin-resistant Enterococci) infection: Code(s): A49.1 - Streptococcal infection, unspecified site; Z16.21 - Resistance to vancomycin Status: Acute Assessment and Plan: linezolid stopped by id (11) Sepsis: Code(s): A41.9 - Sepsis, unspecified organism Status: Acute Assessment and Plan: * Present on admission supported by fever, tachycardia, and leukocytosis. * sepsis secondary to covid pneumonia * treat with iv remdesivir as per ID and iv steroids * off remdesivir * BC and UC positive for ECOLi (12) A
--- NOTE | 2020-03-25 16:13 | PM.IMPN ---
Progress Note: A&P Assessment and Plan (1) COVID-19: Code(s): U07.1 - COVID-19 Status: Acute Assessment and Plan: high risk secondary to immunosuppression and chronic illness, covid came positive in short time 03/20/2020: Negative SARS-CoV-2 PCR 03/22/2020: negative SARS-CoV-2 PCR (2) Acute and chronic respiratory failure: Qualifiers: Respiratory failure complication: unspecified whether with hypoxia or hypercapnia Qualified Code(s): J96.20 - Acute and chronic respiratory failure, unspecified whether with hypoxia or hypercapnia Code(s): J96.20 - Acute and chronic respiratory failure, unspecified whether with hypoxia or hypercapnia Status: Acute Assessment and Plan: pt was emergently intubated extubated yesterday transferd to floor (3) Rheumatoid arthritis: Code(s): M06.9 - Rheumatoid arthritis, unspecified Status: Acute Assessment and Plan: Hold sulfasalazine . (4) Obstructive sleep apnea on CPAP: Code(s): G47.33 - Obstructive sleep apnea (adult) (pediatric); Z99.89 - Dependence on other enabling machines and devices Status: Acute Assessment and Plan: Unable to use CPAP as she is COVID positive (5) Stage 3 chronic kidney disease: Code(s): N18.3 - Chronic kidney disease, stage 3 (moderate) Status: Acute Assessment and Plan: Creatinine is 2.0 (6) Diastolic CHF: Code(s): I50.30 - Unspecified diastolic (congestive) heart failure Status: Acute Assessment and Plan: resume p.o. Lasix in a.m. 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 (8) Type 2 diabetes mellitus: Code(s): E11.9 - Type 2 diabetes mellitus without complications Status: Acute Assessment and Plan: Recent hemoglobin A1c was 5.4%. Initiate sliding scale insulin, Accu-Cheks, and hypoglycemic protocol. (9) Hypertension: Code(s): I10 - Essential (primary) hypertension Status: Acute Assessment and Plan: Blood pressures were reviewed and they are stable. Her antihypertensives will be reviewed and resumed as appropriate. Monitor blood pressures daily. (10) VRE (vancomycin-resistant Enterococci) infection: Code(s): A49.1 - Streptococcal infection, unspecified site; Z16.21 - Resistance to vancomycin Status: Acute Assessment and Plan: linezolid stopped by id (11) Sepsis: Code(s): A41.9 - Sepsis, unspecified organism Status: Acute Assessment and Plan: Present on admission supported by fever, tachycardia, and leukocytosis. sepsis secondary to covid pneumonia treat with iv remdesivir as per ID and iv steroids off remdesivir BC and UC positive for ECOLi (12) Atrial fibrillation: Code(s): I48.91 - Unspecified atrial fibrillation Status: Resolved Assessment and Plan: after amiodarone, cardiology following Subjective Date/time seen: 03/25/20 16:13 Interval history: Chris is a chronically ill 60-year-old female with multiple medical problems to include morbid obesity, obstructive sleep apnea, chronic kidney disease, rheumatoid arthritis on immunosuppressants, chronic stasis dermatitis, home he
[2020-03-25 17:18] LABS: Glucose Point of Care 116 (65-105)
[2020-03-25] MEDS: EZETIMIBE 10 MG TABLET PO (20:40)
[2020-03-25] MEDS: GABAPENTIN 300 MG CAPSULE PO (20:41)
[2020-03-25 20:57] LABS: Glucose Point of Care 126 (65-105)
[2020-03-26] VITALS (24 sets, daily range): BP systolic 158–176; BP diastolic 62–76; PULSE 69–88; RESP 15–28; TEMP 36.3–36.9; O2SAT 96–100; BMI 10.0
[2020-03-26] MEDS: IPRATROPIUM BR 0.02% INH SOLN 0.5 MG/2.5 ML VIAL INHALATION ×4 (01:10→20:12)
[2020-03-26] MEDS: ALBUTEROL SULFATE NEB 2.5 MG/0.5 ML INH INHALATION ×4 (01:10→20:12)
[2020-03-26] MEDS: LEVOTHYROXINE SODIUM 150 MCG TABLET PO (05:43)
[2020-03-26] MEDS: AZTREONAM 1 GM in DEXTROSE 5% IN WATER 50 ML IVPB ×3 (05:44→23:31)
[2020-03-26 06:03] LABS: Hematocrit 25.7 % (37.0-47.0); Mean Corpuscular HGB Conc 31.1 g/dl (32-36); Mean Corpuscular Hemoglobin 29.2 pg (26-34); Mean Corpuscular Volume 93.8 fl (80-100); Mean Platelet Volume 10.4 fl (7.4-10.4); Platelet Count Result 197 k/mm3 (150-375); Red Blood Count 2.74 M/mm3 (4.2-5.4); Red Cell Distribution Width 16.6 % (11.5-14.5); White Blood Count 9.3 K/mm3 (4.5-10.0)
[2020-03-26 06:06] LABS: Anion Gap 10.9 mmol/L (7-16); Blood Urea Nitrogen 67 mg/dL (7-17); Calcium 8.2 mg/dL (8.4-10.2); Carbon Dioxide 31 mmol/L (22-30); Chloride 96 mmol/L (98-107); Estimated CRCL calculation 46 ml/min; Estimated Glomerular Filt Rate 31; Glucose 92 mg/dL (65-105); Potassium 3.9 mmol/L (3.4-5.0); Sodium 134 mmol/L (137-145)
[2020-03-26 08:54] LABS: Glucose Point of Care 88 (65-105)
[2020-03-26] MEDS: ACIDOPHILUS/BULGARICUS CHEWABLE TABLET 2 TABLET PO (09:07)
[2020-03-26] MEDS: ASCORBIC ACID 500 MG TABLET PO (09:08)
[2020-03-26] MEDS: ACETAMINOPHEN ELIXIR 325 MG/10.15 ML UDC 650 MG PO (09:08)
[2020-03-26] MEDS: MAGNESIUM OXIDE 400 MG TABLET PO (09:08)
[2020-03-26] MEDS: GABAPENTIN 300 MG CAPSULE PO ×2 (09:08→20:18)
[2020-03-26] MEDS: predniSONE 10 MG TABLET PO (09:08)
[2020-03-26] MEDS: CYANOCOBALAMIN 500 MCG TABLET PO (09:08)
[2020-03-26] MEDS: calcitrioL 0.25 MCG CAPSULE PO (09:08)
[2020-03-26] MEDS: POLYSACCHARIDE IRON COMPLEX 150 MG CAPSULE PO (09:08)
[2020-03-26] MEDS: BUDESONIDE RESPULE NEB 0.5 MG/2 ML AMP INHALATION ×2 (09:16→20:15)
--- NOTE | 2020-03-26 10:05 | PM.PNNEP ---
Progress Note: A&P Assessment and Plan (1) Stage 3 chronic kidney disease: Code(s): N18.3 - Chronic kidney disease, stage 3 (moderate) Status: Acute Assessment and Plan: the patient has CKD stage 3. This could be from several things including hypertension, morbid obesity, and sleep apnea. Vascular disease is always and possibility as well. Her creatinine generally runs between 1.5 and 2. Occasionally it rises if she is sick. (2) Acute kidney injury: Code(s): N17.9 - Acute kidney failure, unspecified Status: Acute Assessment and Plan: The patient has acute kidney injury. Her creatinine was normal when she got here and nichelle as she has gotten sicker. ultrasound looks okay. Urine electrolytes show pre renal azotemia. The patient has blood in urine positive for E coli. Her creatinine is back to her original baseline at 1.7. She has some swelling. Will give a couple of doses of diuretics. (3) Acute and chronic respiratory failure: Qualifiers: Respiratory failure complication: unspecified whether with hypoxia or hypercapnia Qualified Code(s): J96.20 - Acute and chronic respiratory failure, unspecified whether with hypoxia or hypercapnia Code(s): J96.20 - Acute and chronic respiratory failure, unspecified whether with hypoxia or hypercapnia Status: Acute Assessment and Plan: The patient has chronic respiratory failure from sleep apnea and morbid obesity. She also has a history of reversible airways disease according to the chart. She is breathing comfortably. Will give some diuretics. (4) COVID-19: Code(s): U07.1 - COVID-19 Status: Acute Assessment and Plan: Negative. (5) Septic shock: Code(s): A41.9 - Sepsis, unspecified organism; R65.21 - Severe sepsis with septic shock Status: Acute Assessment and Plan: Patient Has E coli and blood in urine. On antibiotics. (6) Non-ST elevated myocardial infarction (non-STEMI): Code(s): I21.4 - Non-ST elevation (NSTEMI) myocardial infarction Status: Acute Assessment and Plan: Troponins were positive. (7) History of DVT (deep vein thrombosis): Code(s): Z86.718 - Personal history of other venous thrombosis and embolism Status: Acute Assessment and Plan: Patient is on Eliquis (8) Rheumatoid arthritis: Code(s): M06.9 - Rheumatoid arthritis, unspecified Status: Acute Assessment and Plan: she gets Plaquenil and Sulfasalazine (9) Hypertension: Code(s): I10 - Essential (primary) hypertension Status: Acute Assessment and Plan: Blood pressure is well controlled right now. Subjective Date/time seen: 03/26/20 10:05 Interval history: Patient is resting comfortably in bed. She has muscle aches all over her body. She did not sleep well. She has no appetite. She denies shortness of breath or chest pain Review of Systems Cardiovascular: Cardiovascular: Reports no additional cardiovascular complaints Respiratory: Respiratory: Reports no additional respiratory complaints Gastrointestinal: Gastrointestinal: Reports no additional gastrointestinal complaints Genitourinary: Genitourinary: Reports no additional female genitourinary complaints Exam Narrative: Exam Narrative: WDWN in NAD skin no rash or subcu nodules head ncat lungs fairly clear. cor reg no rub or gallop abd BS+ hypoactive, nontender and soft ext 1+ edema. and no cyanosis Objective Data Vital Signs Vital Signs: Vital Signs - 24 hr 03/25/20 11:43 03/25/20 12:00 03/25/20 14:16 Temperature 36.8 C Pulse Rate 75 71 74 Respiratory Rate 22 H 18 Blood Pressure 147/61 H Pulse Oximetry 100 03/25/20 14:26 03/25/20 16:00 03/25/20 18:00 Temperature 37.1 C Pulse Rate 72 79 99 Respiratory Rate 18 24 H Blood Pressure 176/68 H Pulse Oximetry 9
--- NOTE | 2020-03-26 10:28 | WPDINFPN2 ---
Progress Note: A&P Assessment and Plan (1) COVID-19: Code(s): U07.1 - COVID-19 Status: Acute Assessment and Plan: 1. CoVid 19 infection causing viral pneumonia, 3 repeat swabs all negative; in sum, infection has resolved. 2. Multiple allergies 3. Bacteriuria, no voiding symptoms, causing E coli UTI and bacteremia,suspect upper tract infection 4. Respiratory failure, could be due to her septicemia 5. Renal insufficiency REC Off Remdesivir and dexamethasone, as well as off isolation. Aztreonam #5 / 7 days, continue. Subjective Date/time seen: 03/26/20 10:28 Interval history: itchy Exam Narrative: Exam Narrative: afebrile Const: General: no acute distress Resp: Effort & Inspection: normal respiratory effort Auscultation: clear to auscultation bilaterally Cardio: Rate: regular rate Rhythm: regular rhythm Heart sounds: no murmurs GI: Inspection: non-distended GI Palp: Yes Soft to palpation and No Tenderness to palpation present (GI) Objective Data Vital Signs Vital Signs: Vital Signs - 24 hr 03/25/20 11:43 03/25/20 12:00 03/25/20 14:16 Temperature 36.8 C Pulse Rate 75 71 74 Respiratory Rate 22 H 18 Blood Pressure 147/61 H Pulse Oximetry 100 03/25/20 14:26 03/25/20 16:00 03/25/20 18:00 Temperature 37.1 C Pulse Rate 72 79 99 Respiratory Rate 18 24 H Blood Pressure 176/68 H Pulse Oximetry 95 03/25/20 19:12 03/25/20 19:15 03/25/20 19:22 Temperature Pulse Rate 73 72 Respiratory Rate 18 18 Blood Pressure Pulse Oximetry 98 03/25/20 19:56 03/25/20 20:00 03/25/20 22:00 Temperature 37.1 C Pulse Rate 82 85 79 Respiratory Rate 24 H Blood Pressure 165/70 H Pulse Oximetry 95 03/25/20 22:40 03/26/20 00:00 03/26/20 01:11 Temperature 36.5 C Pulse Rate 79 74 73 Respiratory Rate 24 H 16 18 Blood Pressure 167/71 H Pulse Oximetry 95 100 03/26/20 01:13 03/26/20 01:26 03/26/20 02:00 Temperature Pulse Rate 73 70 75 Respiratory Rate 18 18 Blood Pressure Pulse Oximetry 100 03/26/20 04:00 03/26/20 05:51 03/26/20 08:00 Temperature 36.5 C 36.9 C Pulse Rate 71 73 80 Respiratory Rate 15 22 H Blood Pressure 161/66 H 166/70 H Pulse Oximetry 100 96 03/26/20 09:16 03/26/20 09:23 03/26/20 09:29 Temperature Pulse Rate 88 84 Respiratory Rate 20 20 Blood Pressure Pulse Oximetry 96 Intake/Output Intake/Output: Intake & Output 03/23/20 03/24/20 03/25/20 03/26/20 23:59 23:59 23:59 23:59 Intake Total 2244 1259.1 389.9 0 Output Total 850 1100 1825 1225 Balance 1394 159.1 -1435.1 -1225 Meds/Results Medications: Active Medications Generic Name Dose Route Start Last Admin Trade Name Freq PRN Reason Stop Dose Admin Acetaminophen 650 mg 03/21/20 19:35 03/26/20 09:08 Tylenol Elixir PO 650 mg Q4H PRN Administration Mild Pain (1-3) or Fever Albuterol 2.5 mg 03/23/20 08:00 03/26/20 09:16 Albuterol Sulf Neb 2.5mg/0.5ml INHALATION 2.5 mg Q6HRT BONNIE Administration Apixaban 5 mg 03/20/20 21:00 03/22/20 21:54 Eliquis PO 5 mg Q12HR BONNIE Administration Ascorbic Acid 500 mg 03/21/20 09:00 03/26/20 09:08 Vitamin C PO 500 mg DAILY BONNIE Administration Bisacodyl 5 mg 03/20/20 19:35 Dulcolax Tab PO HS PRN Constipation Budesonide 0.5 mg 03/23/20 08:00 03/26/20 09:16 Pulmicort Respule Neb INHALATION 0.5 mg Q12HRT BONNIE Administration Calcitriol 0.25 mcg 03/21/20 09:00 03/26/20 09:08 Rocaltrol PO 0.25 mcg DAILY BONNIE Administration Cyanocobalamin 500 mcg 03/21/20 09:00 03/26/20 09:08 Vitamin B-12 Tab PO 500 mcg DAILY BONNIE Administration Dextrose 12.5 gm 03/21/20 01:39 03/21/20 09:00 Dextrose 50% Syringe IV PUSH 12.5 gm PRN PRN Administration Hypoglycemia Protocol Docusate Sodium 100 mg 03/20/20 19:35 Colace Capsule PO DAILY PRN Constipation Ezetimibe 10 mg 03/20/20 21:00
--- NOTE | 2020-03-26 10:49 | PCNFU ---
Nutrition Follow-Up Complete: Inadequate oral intake related to oral intubation as evidenced by NPO status. Goal: Patient to meet estimated nutritional needs. Patient is progressing towards goal at 50% meal consumption based on patient report. Will continue with current goal. Pt current nutrition is soft and bite sized level 6. Nutrition recommendation: Recommend adding diabetic diet in relationship to type 2 diabetes diagnoses, glucose of 126, and BMI of 57.3 (increased since 03/24/20) Last recorded weight is 151.3 kg. Bowel Motility: last bowel movement reported on 03/25/20 Labs Reviewed: Hgb (8) Hct (25.7) Alb (2.6) Na (134) GFR (31) BUN (67) Cr (1.7) Glu (126) Meds Noted: Albuterol, Amiodarone, Vitamin C, Dulcolax, Rocaltrol, Vitamin B12, Decadron, Colace, Fentanyl, Novolog, Lactinex, Mag-Ox, Protonix, Nifirex, Remdesivir, Prednisone Additional Notes: Patient reports consuming 50% of dinner last night. Patient states not feeling well and appetite is poor. Encouraged snacking in between meals if patient is unable to consume meals and becomes hungry later. Follow up every 3 days.
--- NOTE | 2020-03-26 11:54 | PCNSR ---
On 03/26/20, the student, Pino Ochoa, provided care and completed [facility] documentation on this patient. I have reviewed the student's documentation and agree with the findings.
[2020-03-26 12:44] LABS: Glucose Point of Care 115 (65-105)
--- NOTE | 2020-03-26 13:09 | PM.IMPN ---
Progress Note: A&P Assessment and Plan (1) Acute and chronic respiratory failure: Qualifiers: Respiratory failure complication: unspecified whether with hypoxia or hypercapnia Qualified Code(s): J96.20 - Acute and chronic respiratory failure, unspecified whether with hypoxia or hypercapnia Code(s): J96.20 - Acute and chronic respiratory failure, unspecified whether with hypoxia or hypercapnia Status: Acute Assessment and Plan: Patient admitted for SOB on 03/20 that worsened to requiring intubation on 03/21. She was stabilized and able to be extubated on . Stable on 2L NC and toelrating her bipap. (2) Sepsis: Qualifiers: Sepsis acute organ dysfunction status: unspecified Sepsis type: sepsis due to unspecified organism Qualified Code(s): A41.9 - Sepsis, unspecified organism Code(s): A41.9 - Sepsis, unspecified organism Status: Acute Assessment and Plan: Present on admission with tachycardia, fever and leukocytosis. Blood and urine cultures positive for Ecoli. Patient has history of chronic UTIs with bacteremia. E coli sensitive to penicillin and cephalosporin but patient has allergies. Currently being treated with aztreonam. Id following. Renal ultrasound showing normal size kidneys. Will plan for Urology outpatient evaluation given her frequent UTIs that lead to bacteremia. Remove Paz when up and around more. (3) COVID-19: Code(s): U07.1 - COVID-19 Status: Acute Assessment and Plan: Patient tested positive the day prior to admission (03/19/20). She was started on appropriate treatment but COVID-19 test was negative on 03/20 and again 03/22. Treatment stopped. [place] infection has resolved. (4) Rheumatoid arthritis: Code(s): M06.9 - Rheumatoid arthritis, unspecified Status: Acute Assessment and Plan: stable. Continue prednisone and hydroxychloroquine. Continue to hold sulfasalazine . (5) Obstructive sleep apnea on CPAP: Code(s): G47.33 - Obstructive sleep apnea (adult) (pediatric); Z99.89 - Dependence on other enabling machines and devices Status: Acute Assessment and Plan: stable. Continue BiPAP. (6) Acute on chronic renal failure: Qualifiers: Acute renal failure type: unspecified Chronic kidney disease stage: stage 3 (moderate) Qualified Code(s): N17.9 - Acute kidney failure, unspecified; N18.3 - Chronic kidney disease, stage 3 (moderate) Code(s): N17.9 - Acute kidney failure, unspecified; N18.9 - Chronic kidney disease, unspecified Status: Acute Assessment and Plan: Baseline creatinine anywhere from 1.4-2.0 when checked earlier this year. Creatinine 1.5 on admission but climbed to 2.9. Most likely ATN related to the septicemia. Cr back down to baseline at 1.7. Paz catheter in place. Lasix on hold. Will resume Lasix (7) Diastolic CHF: Code(s): I50.30 - Unspecified diastolic (congestive) heart failure Status: Acute Assessment and Plan: Stab;e. Tolerated IV intermittent diuretics. Resume p.o. Lasix in a.m. (8) Type 2 diabetes mellitus: Code(s): E11.9 - Type 2 diabetes mellitus without complications Status: Acute Assessment and Plan: The patient's blood glucose was reviewed on 03/26/20. Glucose remains well controlled. Continue AccuCheks covering with sliding scale. Hypoglycemia protocol available as needed. (9) Hypertension: Code(s): I10 - Essential (primary) hypertension Status: Acute Assessment and Plan: Patient's blood p
--- NOTE | 2020-03-26 14:48 | PM.PNCARD ---
Progress Note: A&P Assessment and Plan (1) Non-ST elevated myocardial infarction (non-STEMI): Code(s): I21.4 - Non-ST elevation (NSTEMI) myocardial infarction Status: Acute Assessment and Plan: Her troponin was mildly elevated during her recent admission with sepsis and is elevated again this admission 0.2-->0.9 No ischemic changes on EKG. She did not report chest pain on admission before got intubated Her trop elevation is Likely due to type II myocardial infarction from increased demand from underlying resp failure with COVID She had echo on 02/21 with normal LV function and no regional wall motion changes Will follow troponin to peak. She is already anticoagulated with eliquis for h/o DVT. Would continue that.Would also start ASA. She would not be good candidate for ischemic evaluation at current time with her acute illness and even probably later on if she has recovery given her CKD ,other comorbidites and poor functional status (2) CHF (congestive heart failure): Qualifiers: Heart failure chronicity: unspecified Heart failure type: unspecified Qualified Code(s): I50.9 - Heart failure, unspecified Code(s): I50.9 - Heart failure, unspecified Status: Acute Assessment and Plan: Her volume status is difficult to assess due to bod habitus. She is febrile with likely insensible water loss wit that. Her creatinine went up to 1.9 from 1.5 yesterday after she received Lasix in ER. Would hold off further diuresing unless she becomes difficult to oxygenate on the vent. (3) Sinus tachycardia: Code(s): R00.0 - Tachycardia, unspecified Status: Acute Assessment and Plan: Multifactorial with fever and resp failure. No arrhythmia noted. 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 Sedated on the vent. Eyes: Sclera: sclerae normal Neck: Carotids: no bruits Resp: Auscultation: diminished lung sounds Cardio: Rate: regular rate and not tachycardic Rhythm: regular rhythm Heart sounds: no gallops, Murmur heart sound present and no rubs Skin: General skin exam: normal color Neuro: Cranial nerves: Yes Normal hearing present Extrem: General: normal to inspection and edema Objective Data Vital Signs Vital Signs: Vital Signs - 24 hr 03/25/20 16:00 03/25/20 18:00 03/25/20 19:12 Temperature 37.1 C Pulse Rate 79 99 73 Respiratory Rate 24 H 18 Blood Pressure 176/68 H Pulse Oximetry 95 03/25/20 19:15 03/25/20 19:22 03/25/20 19:56 Temperature 37.1 C Pulse Rate 72 82 Respiratory Rate 18 24 H Blood Pressure 165/70 H Pulse Oximetry 98 95 03/25/20 20:00 03/25/20 22:00 03/25/20 22:40 Temperature Pulse Rate 85 79 79 Respiratory Rate 24 H Blood Pressure Pulse Oximetry 95 03/26/20 00:00 03/26/20 01:11 03/26/20 01:13 Temperature 36.5 C Pulse Rate 74 73 73 Respiratory Rate 16 18 18 Blood Pressure 167/71 H Pulse Oximetry 100 100 03/26/20 01:26 03/26/20 02:00 03/26/20 04:00 Temperature 36.5 C Pulse Rate 70 75 71 Respiratory Rat
[2020-03-26] MEDS: dilTIAZem HCL CD 180 MG CAP.ER.24H 360 MG PO (15:39)
[2020-03-26 17:22] LABS: Glucose Point of Care 110 (65-105)
[2020-03-26] MEDS: EZETIMIBE 10 MG TABLET PO (20:18)
[2020-03-26] MEDS: APIXABAN 5 MG TABLET PO (20:19)
[2020-03-26 20:23] LABS: Glucose Point of Care 118 (65-105)
[2020-03-27] VITALS (23 sets, daily range): BP systolic 143–168; BP diastolic 61–82; PULSE 64–88; RESP 11–24; TEMP 36.1–36.8; O2SAT 96–100
[2020-03-27] MEDS: ALBUTEROL SULFATE NEB 2.5 MG/0.5 ML INH INHALATION ×3 (02:04→20:31)
[2020-03-27] MEDS: IPRATROPIUM BR 0.02% INH SOLN 0.5 MG/2.5 ML VIAL INHALATION ×3 (02:04→20:31)
[2020-03-27] MEDS: LEVOTHYROXINE SODIUM 150 MCG TABLET PO (04:59)
[2020-03-27] MEDS: AZTREONAM 1 GM in DEXTROSE 5% IN WATER 50 ML IVPB ×3 (04:59→20:44)
[2020-03-27 05:43] LABS: Hematocrit 27.4 % (37.0-47.0); Hemoglobin 8.4 g/dL (12.0-15.0); Mean Corpuscular HGB Conc 30.7 g/dl (32-36); Mean Corpuscular Hemoglobin 29.2 pg (26-34); Mean Corpuscular Volume 95.1 fl (80-100); Mean Platelet Volume 9.9 fl (7.4-10.4); Platelet Count Result 230 k/mm3 (150-375); Red Blood Count 2.88 M/mm3 (4.2-5.4); Red Cell Distribution Width 16.6 % (11.5-14.5)
[2020-03-27 05:52] LABS: Anion Gap 8.8 mmol/L (7-16); Blood Urea Nitrogen 59 mg/dL (7-17); Calcium 8.5 mg/dL (8.4-10.2); Carbon Dioxide 33 mmol/L (22-30); Chloride 99 mmol/L (98-107); Estimated CRCL calculation 56 ml/min; Estimated Glomerular Filt Rate 38; Glucose 93 mg/dL (65-105); Magnesium 2.2 mg/dL (1.6-2.3); Phosphorus 3.9 mg/dL (2.5-4.5); Potassium 3.8 mmol/L (3.4-5.0); Sodium 137 mmol/L (137-145)
[2020-03-27 08:30] LABS: Glucose Point of Care 103 (65-105)
[2020-03-27] MEDS: BUDESONIDE RESPULE NEB 0.5 MG/2 ML AMP INHALATION ×2 (08:55→20:31)
--- NOTE | 2020-03-27 10:15 | PM.PNNEP ---
Progress Note: A&P Assessment and Plan (1) Stage 3 chronic kidney disease: Code(s): N18.3 - Chronic kidney disease, stage 3 (moderate) Status: Acute Assessment and Plan: the patient has CKD stage 3. This could be from several things including hypertension, morbid obesity, and sleep apnea. Vascular disease is always and possibility as well. Her creatinine generally runs between 1.5 and 2. Occasionally it rises if she is sick. (2) Acute kidney injury: Code(s): N17.9 - Acute kidney failure, unspecified Status: Acute Assessment and Plan: The patient has acute kidney injury. Her creatinine was normal when she got here and nichelle as she has gotten sicker. ultrasound looks okay. Urine electrolytes show pre renal azotemia. The patient has blood in urine positive for E coli. Her creatinine is back to her original baseline at 1.4. She has some swelling. Will give a couple of doses of diuretics. (3) Acute and chronic respiratory failure: Qualifiers: Respiratory failure complication: unspecified whether with hypoxia or hypercapnia Qualified Code(s): J96.20 - Acute and chronic respiratory failure, unspecified whether with hypoxia or hypercapnia Code(s): J96.20 - Acute and chronic respiratory failure, unspecified whether with hypoxia or hypercapnia Status: Acute Assessment and Plan: The patient has chronic respiratory failure from sleep apnea and morbid obesity. She also has a history of reversible airways disease according to the chart. She is breathing comfortably. Will continue oral diuretics. (4) COVID-19: Code(s): U07.1 - COVID-19 Status: Acute Assessment and Plan: Negative. (5) Septic shock: Code(s): A41.9 - Sepsis, unspecified organism; R65.21 - Severe sepsis with septic shock Status: Acute Assessment and Plan: Patient has E coli and blood in urine. White count is okay and patient is afebrile On antibiotics. (6) Non-ST elevated myocardial infarction (non-STEMI): Code(s): I21.4 - Non-ST elevation (NSTEMI) myocardial infarction Status: Acute Assessment and Plan: Troponins were positive. (7) History of DVT (deep vein thrombosis): Code(s): Z86.718 - Personal history of other venous thrombosis and embolism Status: Acute Assessment and Plan: Patient is on Eliquis (8) Rheumatoid arthritis: Code(s): M06.9 - Rheumatoid arthritis, unspecified Status: Acute Assessment and Plan: she gets Plaquenil and Sulfasalazine (9) Hypertension: Code(s): I10 - Essential (primary) hypertension Status: Acute Assessment and Plan: Blood pressure is well controlled right now. Subjective Date/time seen: 03/27/20 10:15 Interval history: Patient is resting comfortably in bed. she is getting a breathing treatment. She slept better. She has no appetite. Review of Systems Cardiovascular: Cardiovascular: Reports no additional cardiovascular complaints Respiratory: Respiratory: Reports no additional respiratory complaints Gastrointestinal: Gastrointestinal: Reports no additional gastrointestinal complaints Genitourinary: Genitourinary: Reports no additional female genitourinary complaints Exam Narrative: Exam Narrative: WDWN in NAD skin no rash or subcu nodules head ncat lungs Rare crackles.. cor reg no rub or gallop abd BS+ hypoactive, nontender and soft ext 1+ edema. and no cyanosis Objective Data Vital Signs Vital Signs: Vital Signs - 24 hr 03/26/20 12:00 03/26/20 14:00 03/26/20 15:35 Temperature 36.8 C Pulse Rate 80 88 76 Respiratory Rate 28 H 20 Blood Pressure 176/69 H Pulse Oximetry 100 03/26/20 16:00 03/26/20 18:00 03/26/20 19:48 Temperature 36.3 C L 36.9 C Pulse Rate 81 80 87 Respiratory Rate 24 H 20 Blood Pressure 164/76 H 169/68 H Puls
[2020-03-27] MEDS: predniSONE 10 MG TABLET PO (11:13)
[2020-03-27] MEDS: MAGNESIUM OXIDE 400 MG TABLET PO (11:13)
[2020-03-27] MEDS: POLYSACCHARIDE IRON COMPLEX 150 MG CAPSULE PO (11:14)
[2020-03-27] MEDS: dilTIAZem HCL CD 180 MG CAP.ER.24H 360 MG PO (11:16)
[2020-03-27] MEDS: GABAPENTIN 300 MG CAPSULE PO ×2 (11:16→20:46)
[2020-03-27] MEDS: FLUTICASONE PROPIONATE 0.05% NA SPR 16 GM BTL (*BKC) 1 SPRAY NASAL (11:16)
[2020-03-27] MEDS: ASCORBIC ACID 500 MG TABLET PO (11:17)
[2020-03-27] MEDS: CYANOCOBALAMIN 500 MCG TABLET PO (11:17)
[2020-03-27] MEDS: calcitrioL 0.25 MCG CAPSULE PO (11:17)
[2020-03-27] MEDS: ACIDOPHILUS/BULGARICUS CHEWABLE TABLET 2 TABLET PO (11:20)
[2020-03-27] MEDS: FUROSEMIDE 20 MG TABLET 60 MG PO (11:21)
[2020-03-27] MEDS: ASPIRIN 81 MG CHEWABLE TABLET PO (11:25)
[2020-03-27] MEDS: APIXABAN 5 MG TABLET PO ×2 (12:10→20:46)
[2020-03-27 12:50] LABS: Glucose Point of Care 112 (65-105)
[2020-03-27 16:15] LABS: Glucose Point of Care 117 (65-105)
--- NOTE | 2020-03-27 18:42 | PM.IMPN ---
Progress Note: A&P Assessment and Plan (1) Acute and chronic respiratory failure: Qualifiers: Respiratory failure complication: unspecified whether with hypoxia or hypercapnia Qualified Code(s): J96.20 - Acute and chronic respiratory failure, unspecified whether with hypoxia or hypercapnia Code(s): J96.20 - Acute and chronic respiratory failure, unspecified whether with hypoxia or hypercapnia Status: Acute Assessment and Plan: Patient admitted for SOB on 03/20 that worsened to requiring intubation on 03/21. She was stabilized and able to be extubated on 03/24/20. Stable on 2L NC and toelrating her bipap. (2) Sepsis: Qualifiers: Sepsis acute organ dysfunction status: unspecified Sepsis type: sepsis due to unspecified organism Qualified Code(s): A41.9 - Sepsis, unspecified organism Code(s): A41.9 - Sepsis, unspecified organism Status: Acute Assessment and Plan: Present on admission with tachycardia, fever and leukocytosis. Blood and urine cultures positive for Ecoli. Patient has history of chronic UTIs with bacteremia. E coli sensitive to penicillin and cephalosporin but patient has allergies. Currently being treated with aztreonam. ID following. Renal ultrasound showing normal size kidneys. Will plan for Urology outpatient evaluation given her frequent UTIs that lead to bacteremia. Remove Paz (3) COVID-19: Code(s): U07.1 - COVID-19 Status: Acute Assessment and Plan: Patient tested positive the day prior to admission (03/19/20). She was started on appropriate treatment but COVID-19 test was negative on 03/20 and again 03/22. Treatment stopped. [place] infection has resolved. (4) Rheumatoid arthritis: Code(s): M06.9 - Rheumatoid arthritis, unspecified Status: Acute Assessment and Plan: stable. Continue prednisone and hydroxychloroquine. Continue to hold sulfasalazine . (5) Obstructive sleep apnea on CPAP: Code(s): G47.33 - Obstructive sleep apnea (adult) (pediatric); Z99.89 - Dependence on other enabling machines and devices Status: Acute Assessment and Plan: stable. Continue BiPAP. (6) Acute on chronic renal failure: Qualifiers: Acute renal failure type: unspecified Chronic kidney disease stage: stage 3 (moderate) Qualified Code(s): N17.9 - Acute kidney failure, unspecified; N18.3 - Chronic kidney disease, stage 3 (moderate) Code(s): N17.9 - Acute kidney failure, unspecified; N18.9 - Chronic kidney disease, unspecified Status: Acute Assessment and Plan: Baseline creatinine anywhere from 1.4-2.0 when checked earlier this year. Creatinine 1.5 on admission but climbed to 2.9. Most likely ATN related to the septicemia. Cr back down to baseline at 1.4. Paz catheter in place. Lasix resumed. Remove Paz. (7) Diastolic CHF: Code(s): I50.30 - Unspecified diastolic (congestive) heart failure Status: Acute Assessment and Plan: Stable. Tolerated IV intermittent diuretics. Continue oral Lasix. (8) Type 2 diabetes mellitus: Code(s): E11.9 - Type 2 diabetes mellitus without complications Status: Acute Assessment and Plan: The patient's blood glucose was reviewed on 03/27/20. Glucose remains well controlled. Continue AccuCheks covering with sliding scale. Hypoglycemia protocol available as needed. (9) Hypertension: Code(s): I10 - Essential (primary) hypertension Status: Acute Assessment and Plan: Patient's blood pressure was reviewed on 03/27/20. B
[2020-03-27] MEDS: EZETIMIBE 10 MG TABLET PO (20:45)
[2020-03-27 20:49] LABS: Glucose Point of Care 110 (65-105)
[2020-03-28] VITALS (13 sets, daily range): BP systolic 147–150; BP diastolic 60–82; PULSE 63–109; RESP 18–22; TEMP 36.4–37.4; O2SAT 96–100
[2020-03-28] MEDS: AZTREONAM 1 GM in DEXTROSE 5% IN WATER 50 ML IVPB ×3 (05:54→21:34)
[2020-03-28] MEDS: LEVOTHYROXINE SODIUM 150 MCG TABLET PO (05:56)
[2020-03-28 06:03] LABS: Hematocrit 27.2 % (37.0-47.0); Hemoglobin 8.3 g/dL (12.0-15.0); Mean Corpuscular HGB Conc 30.5 g/dl (32-36); Mean Corpuscular Hemoglobin 29.2 pg (26-34); Mean Corpuscular Volume 95.8 fl (80-100); Mean Platelet Volume 9.4 fl (7.4-10.4); Platelet Count Result 235 k/mm3 (150-375); Red Blood Count 2.84 M/mm3 (4.2-5.4); Red Cell Distribution Width 16.7 % (11.5-14.5); White Blood Count 15.4 K/mm3 (4.5-10.0)
[2020-03-28 06:25] LABS: Blood Urea Nitrogen 53 mg/dL (7-17); Calcium 8.5 mg/dL (8.4-10.2); Carbon Dioxide 32 mmol/L (22-30); Chloride 99 mmol/L (98-107); Estimated CRCL calculation 60 ml/min; Estimated Glomerular Filt Rate 42; Glucose 89 mg/dL (65-105); Sodium 136 mmol/L (137-145)
--- NOTE | 2020-03-28 08:16 | PCRCNOTE ---
pt refused neb tx
[2020-03-28 09:32] LABS: Glucose Point of Care 97 (65-105)
[2020-03-28] MEDS: GABAPENTIN 300 MG CAPSULE PO ×2 (09:32→21:43)
[2020-03-28] MEDS: FUROSEMIDE 20 MG TABLET 60 MG PO (09:32)
[2020-03-28] MEDS: POLYSACCHARIDE IRON COMPLEX 150 MG CAPSULE PO (09:33)
[2020-03-28] MEDS: ASCORBIC ACID 500 MG TABLET PO (09:33)
[2020-03-28] MEDS: ACIDOPHILUS/BULGARICUS CHEWABLE TABLET 2 TABLET PO (09:33)
[2020-03-28] MEDS: MAGNESIUM OXIDE 400 MG TABLET PO (09:34)
[2020-03-28] MEDS: calcitrioL 0.25 MCG CAPSULE PO (09:34)
[2020-03-28] MEDS: predniSONE 10 MG TABLET PO (09:35)
[2020-03-28] MEDS: APIXABAN 5 MG TABLET PO ×2 (09:35→21:43)
[2020-03-28] MEDS: LORATADINE 10 MG TABLET PO (09:37)
[2020-03-28] MEDS: CYANOCOBALAMIN 500 MCG TABLET PO (09:40)
[2020-03-28] MEDS: dilTIAZem HCL CD 180 MG CAP.ER.24H 360 MG PO (09:41)
[2020-03-28] MEDS: FLUTICASONE PROPIONATE 0.05% NA SPR 16 GM BTL (*BKC) 1 SPRAY NASAL (09:53)
[2020-03-28] MEDS: ASPIRIN 81 MG CHEWABLE TABLET PO (11:01)
--- NOTE | 2020-03-28 12:10 | PCNFU ---
Nutrition Follow-Up Complete: Inadequate oral intake related to oral intubation as evidenced by NPO status. Goal: Patient to meet estimated nutritional needs. Limited progress towards goal. We will continue current goal. Pt current nutrition is DBCC/Soft and bite sized, Level 6. Nutrition recommendation: Agree Last recorded weight is 150 kg. Bowel Motility:+BM noted 03/25 Labs Reviewed:Cr 1.3,GFR 42,BUN 53,Na 136 Meds Noted:Mag-Ox,Vit B12,Lasix,Synthroid. Additional Notes: Patient seen today for nutritional follow up. She states she does not typically eat breakfast. Oral intakes for lunch and dinner meals have been about 25% of meals. Discussed diet supplements with patient today. orders for Glucerna shakes BID for additional 220 kcals and 10 gms protein. PO intake encouraged. Follow up every every 5 days.
--- NOTE | 2020-03-28 13:13 | PM.IMPN ---
Progress Note: A&P Assessment and Plan (1) Acute and chronic respiratory failure: Qualifiers: Respiratory failure complication: unspecified whether with hypoxia or hypercapnia Qualified Code(s): J96.20 - Acute and chronic respiratory failure, unspecified whether with hypoxia or hypercapnia Code(s): J96.20 - Acute and chronic respiratory failure, unspecified whether with hypoxia or hypercapnia Status: Acute Assessment and Plan: Patient admitted for SOB on 03/20 that worsened to requiring intubation on 03/21. She was stabilized and able to be extubated on 03/24/20. Stable on 2L NC and tolerating her bipap. (2) Sepsis: Qualifiers: Sepsis acute organ dysfunction status: unspecified Sepsis type: sepsis due to unspecified organism Qualified Code(s): A41.9 - Sepsis, unspecified organism Code(s): A41.9 - Sepsis, unspecified organism Status: Acute Assessment and Plan: Present on admission with tachycardia, fever and leukocytosis. Blood and urine cultures positive for Ecoli. Patient has history of chronic UTIs with bacteremia. E coli sensitive to penicillin and cephalosporin but patient has allergies. Currently being treated with aztreonam. ID following. Renal ultrasound showing normal size kidneys. WBC at 15K still. Will plan for Urology outpatient evaluation given her frequent UTIs that lead to bacteremia. Remove centralline once peripheral placed. Patient should be de-sensitized to PCN. (3) COVID-19: Code(s): U07.1 - COVID-19 Status: Acute Assessment and Plan: Patient tested positive the day prior to admission (03/19/20). She was started on appropriate treatment but COVID-19 test was negative on 03/20 and again 03/22. Treatment stopped. [place] infection has resolved. (4) Rheumatoid arthritis: Code(s): M06.9 - Rheumatoid arthritis, unspecified Status: Acute Assessment and Plan: stable. Continue prednisone and hydroxychloroquine. Continue to hold sulfasalazine . (5) Obstructive sleep apnea on CPAP: Code(s): G47.33 - Obstructive sleep apnea (adult) (pediatric); Z99.89 - Dependence on other enabling machines and devices Status: Acute Assessment and Plan: stable. Continue BiPAP. (6) Acute on chronic renal failure: Qualifiers: Acute renal failure type: unspecified Chronic kidney disease stage: stage 3 (moderate) Qualified Code(s): N17.9 - Acute kidney failure, unspecified; N18.3 - Chronic kidney disease, stage 3 (moderate) Code(s): N17.9 - Acute kidney failure, unspecified; N18.9 - Chronic kidney disease, unspecified Status: Acute Assessment and Plan: Baseline creatinine anywhere from 1.4-2.0 when checked earlier this year. Creatinine 1.5 on admission but climbed to 2.9. Most likely ATN related to the septicemia. Cr back down to baseline at 1.3. Paz catheter removed and voiding well. Continue Lasix and monitor closely with increase in Lasix dose. (7) Diastolic CHF: Code(s): I50.30 - Unspecified diastolic (congestive) heart failure Status: Acute Assessment and Plan: Stable. Tolerated IV intermittent diuretics. Seems more edematous. Advance oral Lasix. (8) Type 2 diabetes mellitus: Code(s): E11.9 - Type 2 diabetes mellitus without complications Status: Acute Assessment and Plan: The patient's blood glucose was reviewed on 03/28/20. Glucose remains well controlled. Continue AccuCheks covering with sliding scale. Hypoglycemia protocol available as needed. (9) Hyperten
--- NOTE | 2020-03-28 13:35 | WPDINFPN2 ---
Progress Note: A&P Assessment and Plan (1) COVID-19: Code(s): U07.1 - COVID-19 Status: Acute Assessment and Plan: 1. CoVid 19 infection causing viral pneumonia, 3 repeat swabs all negative; in sum, infection has resolved. 2. Multiple allergies 3. Bacteriuria, no voiding symptoms, causing E coli UTI and bacteremia,suspect upper tract infection 4. Respiratory failure, could be due to her septicemia 5. Renal insufficiency 6. Leukocytosis, CVC infection? REC Off Remdesivir and dexamethasone, as well as off isolation. Aztreonam #7, continue and f/u wbc. Pull CVC, discussed. Subjective Date/time seen: 03/28/20 13:35 Objective Data Vital Signs Vital Signs: Vital Signs - 24 hr 03/27/20 14:00 03/27/20 16:00 03/27/20 18:00 Temperature 36.8 C Pulse Rate 80 73 72 Respiratory Rate 24 H Blood Pressure 143/61 H Pulse Oximetry 99 03/27/20 20:00 03/27/20 20:13 03/27/20 20:20 Temperature 36.3 C L Pulse Rate 64 66 79 Respiratory Rate 18 20 Blood Pressure 156/64 H Pulse Oximetry 100 03/27/20 20:32 03/27/20 20:33 03/27/20 22:00 Temperature Pulse Rate 79 79 66 Respiratory Rate 20 20 Blood Pressure Pulse Oximetry 97 03/28/20 00:00 03/28/20 00:14 03/28/20 00:46 Temperature 37.4 C Pulse Rate 65 66 68 Respiratory Rate 18 18 Blood Pressure 147/60 H Pulse Oximetry 97 98 03/28/20 02:20 03/28/20 06:00 03/28/20 08:00 Temperature 36.6 C 36.4 C L Pulse Rate 65 63 82 Respiratory Rate 20 22 H 20 Blood Pressure 147/60 H 150/64 H Pulse Oximetry 98 100 97 03/28/20 08:16 Temperature Pulse Rate 82 Respiratory Rate 20 Blood Pressure Pulse Oximetry 97 Intake/Output Intake/Output: Intake & Output 03/25/20 03/26/20 03/27/20 03/28/20 23:59 23:59 23:59 23:59 Intake Total 389.9 100 880 250 Output Total 1825 1225 1450 550 Balance -1435.1 -1125 -570 -300 Meds/Results Medications: Active Medications Generic Name Dose Route Start Last Admin Trade Name Freq PRN Reason Stop Dose Admin Acetaminophen 650 mg 03/21/20 19:35 03/26/20 09:08 Tylenol Elixir PO 650 mg Q4H PRN Administration Mild Pain (1-3) or Fever Hydrocodone Bitart/Acetaminophen 1 tab 03/26/20 13:14 03/28/20 09:30 [place] 7.5-325 Mg PO 1 tab TID PRN Administration Pain (Scale Score 7-10) Albuterol 2.5 mg 03/23/20 08:00 03/28/20 08:15 Albuterol Sulf Neb 2.5mg/0.5ml INHALATION Not Given Q6HRT [facility] Apixaban 5 mg 03/20/20 21:00 03/28/20 09:35 Eliquis PO 5 mg Q12HR BONNIE Administration Ascorbic Acid 500 mg 03/21/20 09:00 03/28/20 09:33 Vitamin C PO 500 mg DAILY BONNIE Administration Aspirin 81 mg 03/27/20 08:00 03/28/20 11:01 Aspirin Chewable PO 81 mg DAILY@0800 [facility] Administration Bisacodyl 5 mg 03/20/20 19:35 Dulcolax Tab PO HS PRN Constipation Budesonide 0.5 mg 03/23/20 08:00 03/28/20 08:15 Pulmicort Respule Neb INHALATION Not Given Q12HRT [facility] Calcitriol 0.25 mcg 03/21/20 09:00 03/28/20 09:34 Rocaltrol PO 0.25 mcg DAILY BONNIE Administration Cyanocobalamin 500 mcg 03/21/20 09:00 03/28/20 09:40 Vitamin B-12 Tab PO 500 mcg DAILY [facility] Administration Dextrose 12.5 gm 03/21/20 01:39 03/21/20 09:00 Dextrose 50% Syringe IV PUSH 12.5 gm PRN PRN Administration Hypoglycemia Protocol Diltiazem HCl 360 mg 03/26/20 14:05 03/28/20 09:41 Cardizem Cd PO 360 mg QAM BONNIE Administration Docusate Sodium 100 mg 03/20/20 19:35 Colace Capsule PO DAILY PRN Constipation Docusate Sodium 100 mg 03/28/20 13:20 Colace Capsule PO Q12HR BONNIE Ezetimibe 10 mg 03/20/20 21:00 03/27/20 20:45 Zetia PO 10 mg HS BONNIE Administration Fluticasone Propionate 1 spray 03/21/20 09:00 03/28/20 09:53 Flonase 0.05% Nasal [place] NASAL 1 spray DAILY BONNIE Administration Furosemide 40 mg 03/28/20 17:00 Lasix Tablet PO BID BONNIE Zenaida
[2020-03-28 13:48] LABS: Glucose Point of Care 124 (65-105)
[2020-03-28] MEDS: ALBUTEROL SULFATE NEB 2.5 MG/0.5 ML INH INHALATION ×2 (13:52→20:46)
[2020-03-28] MEDS: IPRATROPIUM BR 0.02% INH SOLN 0.5 MG/2.5 ML VIAL INHALATION ×2 (13:52→20:47)
[2020-03-28] MEDS: DOCUSATE SODIUM 100 MG CAPSULE PO ×2 (15:37→21:43)
--- NOTE | 2020-03-28 17:15 | PM.PNNEP ---
Progress Note: A&P Assessment and Plan (1) Stage 3 chronic kidney disease: Code(s): N18.3 - Chronic kidney disease, stage 3 (moderate) Status: Acute Assessment and Plan: the patient has CKD stage 3. This could be from several things including hypertension, morbid obesity, and sleep apnea. Vascular disease is always and possibility as well. her creatinine is back to her baseline. I will view from a distance. She can follow up in my office if she would like or her primary care follow this And send her if there is a problem. (2) Acute kidney injury: Code(s): N17.9 - Acute kidney failure, unspecified Status: Acute Assessment and Plan: The patient has acute kidney injury. Her creatinine was normal when she got here and nichelle as she has gotten sicker. ultrasound looks okay. Urine electrolytes show pre renal azotemia. The patient has blood in urine positive for E coli. recovered (3) Acute and chronic respiratory failure: Qualifiers: Respiratory failure complication: unspecified whether with hypoxia or hypercapnia Qualified Code(s): J96.20 - Acute and chronic respiratory failure, unspecified whether with hypoxia or hypercapnia Code(s): J96.20 - Acute and chronic respiratory failure, unspecified whether with hypoxia or hypercapnia Status: Acute Assessment and Plan: breathing better. (4) COVID-19: Code(s): U07.1 - COVID-19 Status: Acute Assessment and Plan: Negative. (5) Septic shock: Code(s): A41.9 - Sepsis, unspecified organism; R65.21 - Severe sepsis with septic shock Status: Acute Assessment and Plan: Patient has E coli and blood in urine. Improving. (6) Non-ST elevated myocardial infarction (non-STEMI): Code(s): I21.4 - Non-ST elevation (NSTEMI) myocardial infarction Status: Acute Assessment and Plan: Troponins were positive. (7) History of DVT (deep vein thrombosis): Code(s): Z86.718 - Personal history of other venous thrombosis and embolism Status: Acute Assessment and Plan: Patient is on Eliquis (8) Rheumatoid arthritis: Code(s): M06.9 - Rheumatoid arthritis, unspecified Status: Acute Assessment and Plan: she gets Plaquenil and Sulfasalazine (9) Hypertension: Code(s): I10 - Essential (primary) hypertension Status: Acute Assessment and Plan: Blood pressure is well controlled right now. Subjective Date/time seen: 03/28/20 17:15 Interval history: Patient is resting comfortably in bed. Patient is eating well. She slept okay. Making urine. Review of Systems Cardiovascular: Cardiovascular: Reports no additional cardiovascular complaints Respiratory: Respiratory: Reports no additional respiratory complaints Gastrointestinal: Gastrointestinal: Reports no additional gastrointestinal complaints Genitourinary: Genitourinary: Reports no additional female genitourinary complaints Exam Narrative: Exam Narrative: WDWN in NAD skin no rash or subcu nodules head ncat lungs Rare crackles.. cor reg no rub or gallop abd BS+ hypoactive, nontender and soft ext 1+ edema. and no cyanosis Objective Data Vital Signs Vital Signs: Vital Signs - 24 hr 03/27/20 18:00 03/27/20 20:00 03/27/20 20:13 Temperature 36.3 C L Pulse Rate 72 64 66 Respiratory Rate 18 Blood Pressure 156/64 H Pulse Oximetry 100 03/27/20 20:20 03/27/20 20:32 03/27/20 20:33 Temperature Pulse Rate 79 79 79 Respiratory Rate 20 20 20 Blood Pressure Pulse Oximetry 97 03/27/20 22:00 03/28/20 00:00 03/28/20 00:14 Temperature 37.4 C Pulse Rate 66 65 66 Respiratory Rate 18 Blood Pressure 147/60 H Pulse Oximetry 97 03/28/20 00:46 03/28/20 02:20 03/28/20 06:00 Temperature 36.6 C 36.4 C L Pulse Rate 68 65 63 Respiratory Rate 18 20 22 H Blood Pressure 147/60 H
--- NOTE | 2020-03-28 18:23 | PC.NURSE ---
Dr. Davila ordered central line to be discontinued. Pt had no peripheral IV access.Attempted 2 attempts at starting peripheral IV sticks.Notified of unsuccessful IV attempts. He still wants the central line out rick. He said it can stay in to allow IV antibiotic treatment to be completed until peripheral access can be obtained.
[2020-03-28 18:46] LABS: Glucose Point of Care 107 (65-105)
[2020-03-28] MEDS: FUROSEMIDE 40 MG TABLET PO (18:46)
[2020-03-28] MEDS: BUDESONIDE RESPULE NEB 0.5 MG/2 ML AMP INHALATION (20:46)
[2020-03-28] MEDS: EZETIMIBE 10 MG TABLET PO (21:43)
[2020-03-28 22:34] LABS: Glucose Point of Care 122 (65-105)
[2020-03-29] MEDS: IPRATROPIUM BR 0.02% INH SOLN 0.5 MG/2.5 ML VIAL INHALATION ×2 (02:51→15:07)
[2020-03-29] MEDS: ALBUTEROL SULFATE NEB 2.5 MG/0.5 ML INH INHALATION ×2 (02:51→15:07)
[2020-03-29 02:53] VITALS: PULSE 74; RESP 18
[2020-03-29 06:00] VITALS: BP 151/73; PULSE 72; RESP 22; TEMP 36.6; O2SAT 98
[2020-03-29 06:36] LABS: Basophils Absolute Auto 0.1 K/mm3 (0.0-0.1); Basophils Percent Auto 0.5 % (0.2-1.2); Eosinophils Absolute Auto 0.4 K/mm3 (0-0.3); Eosinophils Percent Auto 3.4 % (0-4.4); Hematocrit 30.2 % (37.0-47.0); Hemoglobin 9.1 g/dL (12.0-15.0); Immature Granulocyte Absolute 0.48 K/mm3 (0.00-0.031); Immature Granulocyte Percent A 4.1 % (0-0.5); Lymphocytes Absolute Auto 0.96 K/mm3 (0.9-3.2); Lymphocytes Percent Auto 8.2 % (18.3-44.2); Mean Corpuscular HGB Conc 30.1 g/dl (32-36); Mean Corpuscular Hemoglobin 29.2 pg (26-34); Mean Corpuscular Volume 96.8 fl (80-100); Mean Platelet Volume 9.5 fl (7.4-10.4); Monocytes Absolute Auto 1.2 K/mm3 (0.1-0.6); Monocytes Percent Auto 10.6 % (2.6-8.5); Neutrophils Absolute Auto 8.5 K/mm3 (1.3-6.7); Neutrophils Percent Auto 73.2 % (45.5-73.1); Platelet Count Result 247 k/mm3 (150-375); Red Blood Count 3.12 M/mm3 (4.2-5.4); Red Cell Distribution Width 16.6 % (11.5-14.5); White Blood Count 11.7 K/mm3 (4.5-10.0)
[2020-03-29 06:57] LABS: Blood Urea Nitrogen 53 mg/dL (7-17); Calcium 8.7 mg/dL (8.4-10.2); Carbon Dioxide 32 mmol/L (22-30); Chloride 98 mmol/L (98-107); Estimated CRCL calculation 60 ml/min; Estimated Glomerular Filt Rate 42; Glucose 94 mg/dL (65-105); Sodium 136 mmol/L (137-145)
[2020-03-29] MEDS: AZTREONAM 1 GM in DEXTROSE 5% IN WATER 50 ML IVPB ×2 (07:00→15:15)
[2020-03-29] MEDS: LEVOTHYROXINE SODIUM 150 MCG TABLET PO (07:19)
[2020-03-29 07:48] VITALS: O2SAT 96
[2020-03-29] MEDS: ASPIRIN 81 MG CHEWABLE TABLET PO (09:02)
[2020-03-29] MEDS: CYANOCOBALAMIN 500 MCG TABLET PO (09:03)
[2020-03-29] MEDS: dilTIAZem HCL CD 180 MG CAP.ER.24H 360 MG PO (09:03)
[2020-03-29] MEDS: calcitrioL 0.25 MCG CAPSULE PO (09:03)
[2020-03-29] MEDS: DOCUSATE SODIUM 100 MG CAPSULE PO (09:03)
[2020-03-29] MEDS: ASCORBIC ACID 500 MG TABLET PO (09:03)
[2020-03-29] MEDS: ACIDOPHILUS/BULGARICUS CHEWABLE TABLET 2 TABLET PO (09:03)
[2020-03-29] MEDS: FLUTICASONE PROPIONATE 0.05% NA SPR 16 GM BTL (*BKC) 1 SPRAY NASAL (09:03)
[2020-03-29] MEDS: APIXABAN 5 MG TABLET PO (09:03)
[2020-03-29] MEDS: POLYSACCHARIDE IRON COMPLEX 150 MG CAPSULE PO (09:04)
[2020-03-29] MEDS: FUROSEMIDE 40 MG TABLET PO ×2 (09:04→17:47)
[2020-03-29] MEDS: GABAPENTIN 300 MG CAPSULE PO (09:04)
[2020-03-29] MEDS: predniSONE 10 MG TABLET PO (09:04)
[2020-03-29] MEDS: MAGNESIUM OXIDE 400 MG TABLET PO (09:04)
[2020-03-29] MEDS: LORATADINE 10 MG TABLET PO (09:04)
--- NOTE | 2020-03-29 12:27 | PM.DS ---
DS: Admitting Diagnosis Admitting Diagnosis Admitting Diagnosis: Other specified sepsis DS: Discharge Diagnosis Discharge Diagnosis (1) Acute and chronic respiratory failure: Qualifiers: Respiratory failure complication: unspecified whether with hypoxia or hypercapnia Qualified Code(s): J96.20 - Acute and chronic respiratory failure, unspecified whether with hypoxia or hypercapnia Code(s): J96.20 - Acute and chronic respiratory failure, unspecified whether with hypoxia or hypercapnia Status: Acute Assessment and Plan: Patient admitted for SOB on 03/20 that worsened to requiring intubation on 03/21. She was stabilized and able to be extubated on 03/24/20. Stable on 2L NC and tolerating her bipap. Related to below. (2) Sepsis: Qualifiers: Sepsis acute organ dysfunction status: unspecified Sepsis type: sepsis due to unspecified organism Qualified Code(s): A41.9 - Sepsis, unspecified organism Code(s): A41.9 - Sepsis, unspecified organism Status: Acute Assessment and Plan: Present on admission with tachycardia, fever and leukocytosis. Blood and urine cultures positive for Ecoli. Patient has history of chronic UTIs with bacteremia. Here, BCx and UCx positive for E coli sensitive to penicillin and cephalosporin but patient has multiple allergies. She was treated with aztreonam. ID following. Renal ultrasound showing normal size kidneys. Will plan for Urology outpatient evaluation given her frequent UTIs that lead to bacteremia. Consider de-sensitized to PCN. (3) COVID-19: Code(s): U07.1 - COVID-19 Status: Acute Assessment and Plan: Patient tested positive the day prior to admission (03/19/20). She was started on appropriate treatment but COVID-19 test was negative on 03/20 and again 03/22. Treatment stopped. [place] infection has resolved. (4) Rheumatoid arthritis: Code(s): M06.9 - Rheumatoid arthritis, unspecified Status: Acute Assessment and Plan: stable. Continue prednisone and hydroxychloroquine. (5) Obstructive sleep apnea on CPAP: Code(s): G47.33 - Obstructive sleep apnea (adult) (pediatric); Z99.89 - Dependence on other enabling machines and devices Status: Acute Assessment and Plan: stable. Continue BiPAP. (6) Acute on chronic renal failure: Qualifiers: Acute renal failure type: unspecified Chronic kidney disease stage: stage 3 (moderate) Qualified Code(s): N17.9 - Acute kidney failure, unspecified; N18.3 - Chronic kidney disease, stage 3 (moderate) Code(s): N17.9 - Acute kidney failure, unspecified; N18.9 - Chronic kidney disease, unspecified Status: Acute Assessment and Plan: Baseline creatinine anywhere from 1.4-2.0 when checked earlier this year. Creatinine 1.5 on admission but climbed to 2.9. Most likely ATN related to the septicemia. Cr back down to baseline at 1.3. Paz catheter removed and voiding well. Lasix dose increased due to persistent edema (7) Diastolic CHF: Code(s): I50.30 - Unspecified diastolic (congestive) heart failure Status: Acute Assessment and Plan: Stable. Tolerated IV intermittent diuretics. Oral Lasix advanced. (8) Type 2 diabetes mellitus: Code(s): E11.9 - Type 2 diabetes mellitus without complications Status: Acute Assessment and Plan: The patient's blood glucose was monitored closely. Glucose remained well controlled. We contined AccuCheks covering with sliding scale. Hypoglycemia protocol was available as needed.
[2020-03-29 12:40] LABS: Glucose Point of Care 130 (65-105)
--- NOTE | 2020-03-29 13:28 | WPDINFPN2 ---
Progress Note: A&P Assessment and Plan (1) COVID-19: Code(s): U07.1 - COVID-19 Status: Acute Assessment and Plan: 1. CoVid 19 infection causing viral pneumonia, 3 repeat swabs all negative; in sum, infection has resolved. 2. Multiple allergies 3. Bacteriuria, no voiding symptoms, causing E coli UTI and bacteremia,suspect upper tract infection 4. Respiratory failure, could be due to her septicemia 5. Renal insufficiency 6. Leukocytosis, CVC infection? WBC lower REC Off Remdesivir and dexamethasone, as well as off isolation. Aztreonam #8, stop and place on nitrofurantoin x 5 day. This is not an optimal drug in bacteremia, but is the best treatment possible, given her allergies, at this later stage of her illness. Ok home. Subjective Date/time seen: 03/29/20 13:28 Interval history: no neck pain, no chills/sweats Exam Narrative: Exam Narrative: afebrile Const: General: no acute distress Neck: Other: old r ij cvc site without hematoma/tenderness Resp: Auscultation: clear to auscultation bilaterally Cardio: Rate: regular rate Rhythm: regular rhythm Heart sounds: no murmurs GI: Inspection: non-distended GI Palp: Yes Soft to palpation, No Tenderness to palpation present (GI) and No Guarding due to palpation present (GI) Objective Data Vital Signs Vital Signs: Vital Signs - 24 hr 03/28/20 13:52 03/28/20 14:00 03/28/20 20:48 Temperature 36.6 C Pulse Rate 81 109 H Respiratory Rate 22 H Blood Pressure 150/82 H Pulse Oximetry 100 96 03/28/20 20:49 03/28/20 21:06 03/28/20 22:00 Temperature 36.5 C Pulse Rate 74 78 75 Respiratory Rate 18 18 20 Blood Pressure 149/75 H Pulse Oximetry 98 03/29/20 02:53 03/29/20 06:00 03/29/20 07:48 Temperature 36.6 C Pulse Rate 74 72 Respiratory Rate 18 22 H Blood Pressure 151/73 H Pulse Oximetry 98 96 Intake/Output Intake/Output: Intake & Output 03/26/20 03/27/20 03/28/20 03/29/20 23:59 23:59 23:59 23:59 Intake Total 749 767 7610 500 Output Total 1225 1450 550 400 Balance -1125 -570 900 100 Meds/Results Medications: Active Medications Generic Name Dose Route Start Last Admin Trade Name Freq PRN Reason Stop Dose Admin Acetaminophen 650 mg 03/21/20 19:35 03/26/20 09:08 Tylenol Elixir PO 650 mg Q4H PRN Administration Mild Pain (1-3) or Fever Hydrocodone Bitart/Acetaminophen 1 tab 03/26/20 13:14 03/29/20 09:08 [place] 7.5-325 Mg PO 1 tab TID PRN Administration Pain (Scale Score 7-10) Albuterol 2.5 mg 03/23/20 08:00 03/29/20 07:46 Albuterol Sulf Neb 2.5mg/0.5ml INHALATION Not Given Q6HRT BONNIE Apixaban 5 mg 03/20/20 21:00 03/29/20 09:03 Eliquis PO 5 mg Q12HR BONNIE Administration Ascorbic Acid 500 mg 03/21/20 09:00 03/29/20 09:03 Vitamin C PO 500 mg DAILY BONNIE Administration Aspirin 81 mg 03/27/20 08:00 03/29/20 09:02 Aspirin Chewable PO 81 mg DAILY@0800 BONNIE Administration Bisacodyl 5 mg 03/20/20 19:35 Dulcolax Tab PO HS PRN Constipation Budesonide 0.5 mg 03/23/20 08:00 03/29/20 07:47 Pulmicort Respule Neb INHALATION Not Given Q12HRT BONNIE Calcitriol 0.25 mcg 03/21/20 09:00 03/29/20 09:03 Rocaltrol PO 0.25 mcg DAILY BONNIE Administration Cyanocobalamin 500 mcg 03/21/20 09:00 03/29/20 09:03 Vitamin B-12 Tab PO 500 mcg DAILY BONNIE Administration Dextrose 12.5 gm 03/21/20 01:39 03/21/20 09:00 Dextrose 50% Syringe IV PUSH 12.5 gm PRN PRN Administration Hypoglycemia Protocol Diltiazem HCl 360 mg 03/26/20 14:05 03/29/20 09:03 Cardizem Cd PO 360 mg QAM BONNIE Administration Docusate Sodium 100 mg 03/20/20 19:35 Colace Capsule PO DAILY PRN Constipation Docusate Sodium 100 mg 03/28/20 13:20 03/29/20 09:03 Colace Capsule PO 100 mg Q12HR BONNIE Administration Ezetimibe 10 mg 03/20/20 21:00 03/28/20 21:43 Zetia PO 10 mg HS BONNIE Administrati
[2020-03-29 14:05] LABS: SARS-CoV-2 RNA PCR Negative
[2020-03-29 15:09] VITALS: PULSE 74; RESP 18
[2020-03-29 15:20] VITALS: PULSE 76; RESP 18
[2020-03-29 16:02] LABS: Glucose Point of Care 88 (65-105)
[2020-03-29 17:44] VITALS: BP 157/69; PULSE 68; RESP 20; TEMP 37.3; O2SAT 100
[2020-03-29 18:07] LABS: Glucose Point of Care 122 (65-105)
== END 2020-03-29 19:20 | DRG 871 ==
LOC: ANHED 08:12 → ANHICU 15:57 → ANHIMU 03-26 06:47 → ANH3MEDSUR 03-29 00:43 → ANHICU 03-30 11:26 → ANHIMU 03-30 11:26 → ANHTRC 03-30 11:26
PROVIDERS: Family Medicine; Internal Medicine; Internal Medicine Critical Care Medicine; Internal Medicine Nephrology; Physician Assistant; Admitting Provider Internal Medicine; Emergency Provider Emergency Medicine; PCP Family Medicine; Visit Provider Internal Medicine
DX: A41.51 Sepsis due to Escherichia coli [E. coli] (principal); U07.1 COVID-19; J12.89 Other viral pneumonia; R65.21 Severe sepsis with septic shock; N17.0 Acute kidney failure with tubular necrosis; J96.20 Acute and chronic respiratory failure, unspecified whether with hypoxia or hypercapnia; I21.A1 Myocardial infarction type 2; I50.33 Acute on chronic diastolic (congestive) heart failure; N39.0 Urinary tract infection, site not specified; Z16.21 Resistance to vancomycin; Z68.43 Body mass index [BMI] 50.0-59.9, adult; A41.89 Other specified sepsis; I13.10 Hypertensive heart and chronic kidney disease without heart failure, with stage 1 through stage 4 chronic kidney disease, or unspecified chronic kidney disease; N18.3 Chronic kidney disease, stage 3 (moderate); E11.22 Type 2 diabetes mellitus with diabetic chronic kidney disease; D64.9 Anemia, unspecified; I48.91 Unspecified atrial fibrillation; M06.9 Rheumatoid arthritis, unspecified; E66.01 Morbid (severe) obesity due to excess calories; G47.33 Obstructive sleep apnea (adult) (pediatric); M10.9 Gout, unspecified; Z90.710 Acquired absence of both cervix and uterus; K21.9 Gastro-esophageal reflux disease without esophagitis; M81.0 Age-related osteoporosis without current pathological fracture; I87.2 Venous insufficiency (chronic) (peripheral); R00.0 Tachycardia, unspecified; Z87.891 Personal history of nicotine dependence; Z86.718 Personal history of other venous thrombosis and embolism; Z85.42 Personal history of malignant neoplasm of other parts of uterus; Z79.01 Long term (current) use of anticoagulants
CPT/HCPCS: 36415; 36430; 36600; 51701; 71045; 76775; 80048; 80053; 80069; 81001; 82274; 82375; 82550; 82570; 82728; 82805; 83050; 83540; 83550; 83605; 83615; 83735; 83880; 84100; 84156; 84300; 84484; 85014; 85018; 85025; 85027; 85380; 86140; 86850; 86900; 86901; 86923; 87040; 87077; 87086; 87088; 87186; 87635; 92610; 93005; 94002; 94003; 94640; 94667; 96365; 96375; 97161; 97166; 99291; A9270; C1751; C9113; C9803; J0131; J0282; J0743; J1100; J1940; J2020; J2250; J2405; J3010; J7030; J7040; J7050; J7512; P9016; U0003